=== PATIENT | female | born 1985 | race African-American/Black ===

== ENCOUNTER 2016-12-22 08:52 | Emergency (ER) | payer MEDICAID ==
[~2016-12-22] VITALS: Ht 172.7 cm; Wt 54.4 kg
[2016-12-22 08:59] VITALS: BP 179/119
[2016-12-22 09:35] LABS: Urine Bilirubin Negative (Negative); Urine Blood 1+ /uL (Negative); Urine Color Yellow (Yellow); Urine Glucose Normal (Normal); Urine Ketone Negative (Negative); Urine Nitrite Negative (Negative); Urine RBC 10 /hpf (0 - 4); Urine Squamous Epithelial Cell FEW /hpf (<5); Urine Urobilinogen Normal (Negative)
[2016-12-22 09:47] LABS: Basophils # (auto) 0 uL; Basophils % (auto) 0.1 % (0.0-2.0); DEFINITIVE VIEW TRANSMISSION; Eosinophils # (auto) 0.1 uL; Eosinophils % (auto) 0.5 % (0.0-7.0); Hematocrit 25.9 % (36.0-46.0); Hemoglobin 7.8 g/dL (12.2-16.2); Lymphocytes # (auto) 0.8 uL; Lymphocytes % (auto) 7.8 % (10.0-50.0); Mean Corpuscular Hemoglobin 19.4 pg (28.0-32.0); Mean Corpuscular Hgb Conc. 30.1 g/dL (32.0-36.0); Mean Corpuscular Volume 64.3 fL (80.0-100.0); Mean Platelet Volume 9.2 fL (7.4-10.4); Monocytes # (auto) 0.6 uL; Monocytes % (auto) 6.2 % (0.0-12.0); Neutrophils # (auto) 8.8 uL; Neutrophils % (auto) 85.4 % (37.0-80.0); SUSPECT VIEW TRANSMISSION; White Blood Cell 10.3 10^3/uL (4.4-10.8)
[2016-12-22 09:59] LABS: Platelet Count (auto) 229 10^3/uL (140-450); Red Cell Distribution Width 22.2 % (11.6-16.0)
[2016-12-22 10:39] LABS: Anisocytosis Moderate; Hypochromia Marked; Platelet Estimate Adequate
[2016-12-22 10:40] LABS: Microcytosis Marked; Ovalocytes FEW
== END 2016-12-22 15:32 | disposition left against medical advice (07) ==
LOC: EDBD 08:52 → ER 09:00
DX: R10.9 Unspecified abdominal pain (principal); Z53.21 Procedure and treatment not carried out due to patient leaving prior to being seen by health care provider
CPT/HCPCS: 36415; 81001; 84702; 85025

== ENCOUNTER 2016-12-24 15:37 | Inpatient (IN) | payer MEDICAID ==
[~2016-12-24] VITALS: Ht 162.6 cm; Wt 51.3 kg
[2016-12-24 16:33] LABS: Albumin 3.3 g/dL (3.4-5.0); BUN/Creatinine Ratio 12.6; Bilirubin, Total 0.4 mg/dL (0.2-1.0); Calcium 9.2 mg/dL (8.5-10.1); Potassium 3.1 mmol/L (3.5-5.1); Total Protein 9.2 g/dL (6.4-8.2)
[2016-12-24 16:35] LABS: Urine Color Yellow (Yellow); Urine Glucose Normal (Normal); Urine Nitrite Negative (Negative); Urine RBC 77 /hpf (0 - 4); Urine WBC Clumps PRESENT /hpf (None Seen)
[2016-12-24 16:45] LABS: Urine Bilirubin POSITIVE (Negative); Urine Blood 2+ /uL (Negative); Urine Ketone 2+ (Negative)
[2016-12-24 16:59] LABS: Basophils # (auto) 0 uL; DEFINITIVE VIEW TRANSMISSION; Eosinophils # (auto) 0 uL; Hematocrit 28.6 % (36.0-46.0); Hemoglobin 8.9 g/dL (12.2-16.2); Lymphocytes # (auto) 0.5 uL; Lymphocytes % (auto) 3.8 % (10.0-50.0); Mean Corpuscular Hemoglobin 19.5 pg (28.0-32.0); Mean Platelet Volume 9.6 fL (7.4-10.4); Monocytes # (auto) 1.1 uL; Monocytes % (auto) 8.3 % (0.0-12.0); Neutrophils # (auto) 11.5 uL; Neutrophils % (auto) 87.9 % (37.0-80.0); Platelet Count (auto) 225 10^3/uL (140-450); SUSPECT VIEW TRANSMISSION
[2016-12-24 17:08] LABS: Red Cell Distribution Width 22.8 % (11.6-16.0)
[2016-12-24 18:25] LABS: Platelet Estimate Adequate
[2016-12-24 18:26] LABS: Anisocytosis Moderate; Giant Platelets Few; Hypochromia Marked; Microcytosis Marked
[2016-12-24] MEDS ORDERED: SODIUM CHLORIDE 0.9% 1,000 ML IVB ONE (19:51)
[2016-12-24] MEDS ORDERED: SODIUM CHLORIDE 0.9% 2,000 ML IV ONE (20:00)
[2016-12-24] MEDS ORDERED: KETOROLAC TROMETH 30 MG/ML 1ML VIAL IV ONE (20:00)
[2016-12-24] MEDS ORDERED: ONDANSETRON HCL 4 MG/2 ML VIAL IV ONE (20:00)
[2016-12-24 20:14] LABS: INR 1.03 (0.9-1.15); Partial Thromboplastin Time 33.3 sec (22.64-33.71); Prothrombin Time 11.2 sec (9.37-12.3)
[2016-12-24] MEDS ORDERED: cefTRIAXone 1GM/50ML D5W 50 ML IV ONE (21:30)
[2016-12-24] MEDS ORDERED: TEMAZEPAM 15 MG CAP PO PRN (21:30)
[2016-12-24] MEDS ORDERED: ALBUTEROL SULF 2.5 MG/0.5ML(0.5%) NEB SOLN NEB PRN (21:30)
[2016-12-24] MEDS ORDERED: POTASSIUM CHL 20 Meq TABLET PO ONE (21:30)
[2016-12-24 22:00] VITALS: BP 165/108
[2016-12-24] MEDS: FAMOTIDINE 20 MG TAB PO SCH (22:41)
[2016-12-24] MEDS: HYDROcodone-ACET 5/325MG TAB PO PRN (22:41)
[2016-12-24] MEDS: SODIUM CHLORIDE 0.9% 1,000 ML IV SCH (22:42)
[2016-12-25] VITALS (9 sets, daily range): BP systolic 146–169; BP diastolic 85–110
[2016-12-25 06:23] LABS: Basophils # (auto) 0 uL; DEFINITIVE VIEW TRANSMISSION; Eosinophils # (auto) 0.1 uL; Eosinophils % (auto) 0.7 % (0.0-7.0); Hematocrit 24.9 % (36.0-46.0); Hemoglobin 7.7 g/dL (12.2-16.2); Lymphocytes # (auto) 0.6 uL; Lymphocytes % (auto) 4.9 % (10.0-50.0); Mean Corpuscular Hemoglobin 19.5 pg (28.0-32.0); Mean Corpuscular Hgb Conc. 30.7 g/dL (32.0-36.0); Mean Corpuscular Volume 63.6 fL (80.0-100.0); Mean Platelet Volume 9.3 fL (7.4-10.4); Monocytes # (auto) 1.2 uL; Monocytes % (auto) 10.6 % (0.0-12.0); Neutrophils # (auto) 9.7 uL; Neutrophils % (auto) 83.8 % (37.0-80.0); Platelet Count (auto) 200 10^3/uL (140-450); SUSPECT VIEW TRANSMISSION; White Blood Cell 11.6 10^3/uL (4.4-10.8)
[2016-12-25 06:31] LABS: Red Cell Distribution Width 21.9 % (11.6-16.0)
[2016-12-25 07:00] LABS: Albumin 2.6 g/dL (3.4-5.0); BUN/Creatinine Ratio 12.5; Bilirubin, Total 0.2 mg/dL (0.2-1.0); Potassium 3.8 mmol/L (3.5-5.1); Total Protein 7.2 g/dL (6.4-8.2)
[2016-12-25] MEDS: ACETAMINOPHEN 325 MG TAB PO PRN ×2 (07:03→14:45)
[2016-12-25 07:52] LABS: Anisocytosis Moderate; Burr Cells FEW; Giant Platelets Few; Hypochromia Moderate; Microcytosis Moderate; Ovalocytes FEW; Platelet Estimate Adequate
[2016-12-25] MEDS: HYDROcodone-ACET 5/325MG TAB PO PRN ×3 (08:04→19:38)
[2016-12-25] MEDS: SODIUM CHLORIDE 0.9% 1,000 ML IV SCH ×2 (09:52→15:12)
[2016-12-25] MEDS: ENOXAPARIN SOD 30 MG/0.3 ML SYRINGE SC SCH (10:00)
[2016-12-25] MEDS: FAMOTIDINE 20 MG TAB PO SCH ×2 (10:00→22:31)
[2016-12-25] MEDS: cefTRIAXone 1GM/50ML D5W 50 ML IV SCH (10:51)
[2016-12-25] MEDS: ONDANSETRON HCL 4 MG/2 ML VIAL IV PRN (10:52)
[2016-12-25] MEDS ORDERED: SODIUM CHL 0.9% 500 ML IV ONE (12:44)
[2016-12-25 13:37] LABS: Basophils # (auto) 0 uL; Basophils % (auto) 0.2 % (0.0-2.0); DEFINITIVE VIEW TRANSMISSION; Eosinophils # (auto) 0 uL; Eosinophils % (auto) 0.1 % (0.0-7.0); Hematocrit 26.2 % (36.0-46.0); Hemoglobin 7.9 g/dL (12.2-16.2); Lymphocytes # (auto) 0.5 uL; Lymphocytes % (auto) 4.4 % (10.0-50.0); Mean Corpuscular Hemoglobin 19.2 pg (28.0-32.0); Mean Corpuscular Hgb Conc. 30.3 g/dL (32.0-36.0); Mean Corpuscular Volume 63.5 fL (80.0-100.0); Mean Platelet Volume 9.1 fL (7.4-10.4); Monocytes # (auto) 1.1 uL; Monocytes % (auto) 10.1 % (0.0-12.0); Neutrophils # (auto) 9.5 uL; Neutrophils % (auto) 85.2 % (37.0-80.0); Platelet Count (auto) 209 10^3/uL (140-450); SUSPECT VIEW TRANSMISSION; White Blood Cell 11.1 10^3/uL (4.4-10.8)
[2016-12-25 13:40] LABS: Red Cell Distribution Width 22.4 % (11.6-16.0)
[2016-12-25] MEDS ORDERED: SODIUM CHLORIDE 0.9% 1,000 ML IV ONE (13:45)
[2016-12-25 13:47] LABS: Anisocytosis Moderate; Hypochromia Moderate; Microcytosis Moderate; Ovalocytes FEW; Platelet Estimate Adequate
[2016-12-25 13:53] LABS: INR 0.99 (0.9-1.15); Partial Thromboplastin Time 34.1 sec (22.64-33.71); Prothrombin Time 10.8 sec (9.37-12.3)
[2016-12-25 14:06] LABS: Albumin 2.5 g/dL (3.4-5.0); Anion Gap 11 (5-15); Aspartate Aminotransferase 14 U/L (15-37); BUN/Creatinine Ratio 9.1; Blood Urea Nitrogen 8 mg/dL (7-18); Calcium 8.2 mg/dL (8.5-10.1); Carbon Dioxide 23 mmol/L (21-32); Chloride 101 mmol/L (98-107); GFR African American 95 mL/min; GFR Non-African American 79 mL/min; Glucose 95 mg/dL (74-106); Potassium 3.6 mmol/L (3.5-5.1); Sodium 135 mmol/L (136-145)
[2016-12-25 14:10] LABS: Alkaline Phosphatase 92 U/L (45-117); Bilirubin, Total 0.2 mg/dL (0.2-1.0); Total Protein 7.5 g/dL (6.4-8.2)
[2016-12-25 19:37] LABS: Allen Test Yes; Base Excess -0.6 mmol/L (-2.0-2.0); Blood 02Sat 95.3 % (96-100); Blood COHb 0.8 % (0.5-1.5); Blood MetHb 0.1 % (0.0-1.5); HCO3 23.9 mmol/L (22-26.0); HHb 4.7 % (0.0-5.0); MODE ROOM AIR; O2Hb 94.4 % (94.0-97.0); PCO2 38.5 mmHg (35.0-45.0); PCO2(T) 39.4 mmHg (35.0-45.0); PO2 83.7 mmHg (80.0-100.0); PO2(T) 86.5 mmHg (80.0-100.0); Room 0266D; Sample Type Arterial; pH 7.411 (7.350-7.450)
[2016-12-25] MEDS: MORPHINE SULF INJ 2 MG/ML SYRINGE 1ML IV PRN (23:14)
[2016-12-26] VITALS (14 sets, daily range): BP systolic 111–148; BP diastolic 67–90
[2016-12-26] MEDS: HYDROcodone-ACET 5/325MG TAB PO PRN ×2 (01:07→08:50)
[2016-12-26] MEDS: MORPHINE SULF INJ 2 MG/ML SYRINGE 1ML IV PRN ×3 (03:55→18:58)
[2016-12-26 05:18] LABS: BUN/Creatinine Ratio 5.7; Calcium 7.8 mg/dL (8.5-10.1); Potassium 3.5 mmol/L (3.5-5.1)
[2016-12-26] MEDS: SODIUM CHLORIDE 0.9% 1,000 ML IV SCH ×2 (05:25→16:20)
[2016-12-26 06:04] LABS: Basophils # (auto) 0 uL; Basophils % (auto) 0.1 % (0.0-2.0); DEFINITIVE VIEW TRANSMISSION; Eosinophils # (auto) 0.2 uL; Eosinophils % (auto) 1.9 % (0.0-7.0); Hematocrit 25.5 % (36.0-46.0); Lymphocytes # (auto) 0.8 uL; Lymphocytes % (auto) 9.3 % (10.0-50.0); Mean Corpuscular Hgb Conc. 25.5 g/dL (32.0-36.0); Mean Corpuscular Volume 74.6 fL (80.0-100.0); Mean Platelet Volume 9.9 fL (7.4-10.4); Monocytes # (auto) 1.2 uL; Monocytes % (auto) 12.8 % (0.0-12.0); Neutrophils # (auto) 6.9 uL; Neutrophils % (auto) 75.9 % (37.0-80.0); Platelet Count (auto) 175 10^3/uL (140-450); SUSPECT VIEW TRANSMISSION; White Blood Cell 9.1 10^3/uL (4.4-10.8)
[2016-12-26 06:15] LABS: Red Cell Distribution Width 25.7 % (11.6-16.0)
[2016-12-26 06:17] LABS: Hemoglobin 6.5 g/dL (12.2-16.2)
[2016-12-26 06:36] LABS: Platelet Estimate Adequate
[2016-12-26 06:37] LABS: Anisocytosis Moderate; Hypochromia Marked; Microcytosis Moderate
[2016-12-26 06:38] LABS: Ovalocytes FEW
[2016-12-26] MEDS: cefTRIAXone 1GM/50ML D5W 50 ML IV SCH (08:49)
[2016-12-26] MEDS: ACETAMINOPHEN 325 MG TAB PO PRN ×2 (08:51→18:37)
[2016-12-26] MEDS: LEVOFLOXACIN 500MG 100 ML IV SCH (10:31)
[2016-12-26] MEDS: FAMOTIDINE 20 MG TAB PO SCH ×2 (10:31→21:31)
[2016-12-26] MEDS: ENOXAPARIN SOD 30 MG/0.3 ML SYRINGE SC SCH (10:31)
[2016-12-26] MEDS ORDERED: KETOROLAC TROMETH 30 MG/ML 1ML VIAL IV ONE (20:00)
[2016-12-27] VITALS (9 sets, daily range): BP systolic 122–147; BP diastolic 75–99
[2016-12-27 04:57] LABS: Basophils # (auto) 0 uL; Basophils % (auto) 0.2 % (0.0-2.0); DEFINITIVE VIEW TRANSMISSION; Eosinophils # (auto) 0.2 uL; Eosinophils % (auto) 2.4 % (0.0-7.0); Hematocrit 28.6 % (36.0-46.0); Hemoglobin 8.9 g/dL (12.2-16.2); Lymphocytes % (auto) 13.9 % (10.0-50.0); Mean Corpuscular Hemoglobin 22.3 pg (28.0-32.0); Mean Corpuscular Hgb Conc. 31.2 g/dL (32.0-36.0); Mean Corpuscular Volume 71.4 fL (80.0-100.0); Mean Platelet Volume 10.4 fL (7.4-10.4); Monocytes # (auto) 0.8 uL; Monocytes % (auto) 10.1 % (0.0-12.0); Neutrophils # (auto) 5.5 uL; Neutrophils % (auto) 73.4 % (37.0-80.0); Platelet Count (auto) 181 10^3/uL (140-450); SUSPECT VIEW TRANSMISSION; White Blood Cell 7.6 10^3/uL (4.4-10.8)
[2016-12-27 04:58] LABS: Red Cell Distribution Width 27.9 % (11.6-16.0)
[2016-12-27 05:17] LABS: BUN/Creatinine Ratio 8.1; Calcium 7.8 mg/dL (8.5-10.1); Potassium 3.2 mmol/L (3.5-5.1)
[2016-12-27 05:25] LABS: Anisocytosis Moderate; Platelet Estimate Adequate
[2016-12-27 05:26] LABS: Burr Cells FEW; Hypochromia Moderate; Microcytosis Moderate; Ovalocytes FEW; Polychromasia Slight
[2016-12-27] MEDS: ONDANSETRON HCL 4 MG/2 ML VIAL IV PRN (06:59)
[2016-12-27] MEDS: HYDROcodone-ACET 5/325MG TAB PO PRN (07:04)
[2016-12-27] MEDS: cefTRIAXone 1GM/50ML D5W 50 ML IV SCH (09:27)
[2016-12-27] MEDS: MORPHINE SULF INJ 2 MG/ML SYRINGE 1ML IV PRN (09:34)
[2016-12-27] MEDS: FAMOTIDINE 20 MG TAB PO SCH (10:20)
[2016-12-27] MEDS: ENOXAPARIN SOD 30 MG/0.3 ML SYRINGE SC SCH (10:20)
[2016-12-27] MEDS: LEVOFLOXACIN 500MG 100 ML IV SCH (10:21)
[2016-12-27] MEDS ORDERED: POTASSIUM CHL 20 Meq TABLET PO ONE (11:15)
== END 2016-12-27 15:32 | disposition home or self-care (01) | DRG 720 ==
LOC: ER 15:40 → OVERFLOW 15:41 → CENTRAL 21:58 → DOU IN ICU 12-25 14:45
PROVIDERS: ADMIT Internal Medicine; ATTEND Family Medicine
PROC: 30233N1 Transfusion of Nonautologous Red Blood Cells into Peripheral Vein, Percutaneous Approach (ICD-10-PCS; principal; 2016-12-24)
DX: A41.9 Sepsis, unspecified organism (principal); E43 Unspecified severe protein-calorie malnutrition; N12 Tubulo-interstitial nephritis, not specified as acute or chronic; E86.0 Dehydration; E87.6 Hypokalemia; D50.9 Iron deficiency anemia, unspecified; J45.909 Unspecified asthma, uncomplicated; N20.9 Urinary calculus, unspecified; Z71.89 Other specified counseling; Z68.1 Body mass index [BMI] 19.9 or less, adult
CPT/HCPCS: 36415; 36600; 71010; 76775; 80048; 80053; 81001; 82728; 82805; 83605; 83735; 84484; 84702; 85025; 85379; 85610; 85730; 86850; 86900; 86901; 86920; 87040; 87086; 96365; 96375; J0696; J1885; J1956; J2405

== ENCOUNTER 2018-11-02 06:28 | Emergency (ER) | payer OTHER ==
[~2018-11-02] VITALS: Ht 162.6 cm; Wt 49.9 kg
[2018-11-02] MEDS ORDERED: cloNIDine HCL 0.1 MG TAB PO ONE (06:45)
[2018-11-02 08:25] VITALS: BP 146/106
== END 2018-11-02 08:23 | disposition home or self-care (01) ==
LOC: ER 06:28
DX: R51 Headache (principal); I10 Essential (primary) hypertension; J45.909 Unspecified asthma, uncomplicated

== ENCOUNTER 2018-11-13 10:44 | Emergency (ER) | payer OTHER ==
[~2018-11-13] VITALS: Ht 162.6 cm; Wt 49.9 kg
[2018-11-13 10:50] VITALS: BP 160/97
[2018-11-13 11:50] LABS: Urine Bacteria MOD /hpf (None Seen); Urine Blood 1+ /uL (Negative); Urine Mucus FEW (None Seen); Urine Specific Gravity 1.016 (1.001-1.035); Urine WBC 581 /hpf (0 - 5); Urine WBC Clumps PRESENT /hpf (None Seen)
[2018-11-13] MEDS ORDERED: KETOROLAC TROMETH 60MG/2ML VIAL IM ONE (12:15)
== END 2018-11-13 12:23 | disposition home or self-care (01) ==
LOC: ER 10:44 → EDBD 10:44 → ER 12:23
DX: G44.209 Tension-type headache, unspecified, not intractable (principal); N39.0 Urinary tract infection, site not specified; J45.909 Unspecified asthma, uncomplicated; I10 Essential (primary) hypertension
CPT/HCPCS: 70450; 81001; 81025; 96372; 99284; J1885

== ENCOUNTER 2019-01-12 06:08 | Emergency (ER) | payer OTHER ==
[~2019-01-12] VITALS: Ht 157.5 cm; Wt 54.4 kg
[2019-01-12 07:19] VITALS: BP 154/106
[2019-01-12] MEDS ORDERED: KETOROLAC TROMETH 60MG/2ML VIAL IM ONE (08:30)
== END 2019-01-12 09:57 | disposition home or self-care (01) ==
LOC: EDBD 06:08 → ER 06:23
DX: R51 Headache (principal); R93.0 Abnormal findings on diagnostic imaging of skull and head, not elsewhere classified; J45.909 Unspecified asthma, uncomplicated; I10 Essential (primary) hypertension
CPT/HCPCS: 70450; 81025; 96372; 99284; J1885

== ENCOUNTER 2019-01-13 08:47 | Emergency (ER) | payer OTHER ==
[~2019-01-13] VITALS: Ht 162.6 cm; Wt 49.9 kg
[2019-01-13 09:49] LABS: Albumin 3.6 g/dL (3.4-5.0); BUN/Creatinine Ratio 19.4; Calcium 8.5 mg/dL (8.5-10.1); Potassium 3.7 mmol/L (3.5-5.1)
[2019-01-13 09:51] LABS: Bilirubin, Total 0.1 mg/dL (0.2-1.0); Total Protein 7.6 g/dL (6.4-8.2)
[2019-01-13 10:02] LABS: Basophils # (auto) 0.1 uL; Basophils % (auto) 1.3 % (0.0-2.0); Eosinophils # (auto) 0.4 uL; Eosinophils % (auto) 4.9 % (0.0-7.0); Hematocrit 27.6 % (36.0-46.0); Hemoglobin 8.1 g/dL (12.2-16.2); Lymphocytes # (auto) 1.3 uL; Lymphocytes % (auto) 14.6 % (10.0-50.0); Mean Corpuscular Hemoglobin 19.2 pg (28.0-32.0); Mean Corpuscular Hgb Conc. 29.4 g/dL (32.0-36.0); Mean Corpuscular Volume 65.1 fL (80.0-100.0); Monocytes # (auto) 0.4 uL; Neutrophils # (auto) 6.5 uL; Neutrophils % (auto) 74.2 % (37.0-80.0); Nucleated Red Blood Cells % 0.2 %; Platelet Count (auto) 184 10^3/uL (140-450); Red Blood Cells 4.23 10^6/uL (4.0-5.20); White Blood Cell 8.8 10^3/uL (4.4-10.8)
[2019-01-13 10:03] LABS: Red Cell Distribution Width 23.1 % (11.8-14.3)
[2019-01-13 10:38] LABS: Urine Bacteria FEW /hpf (None Seen); Urine Blood 1+ /uL (Negative); Urine Mucus FEW (None Seen); Urine Specific Gravity 1.015 (1.001-1.035); Urine WBC 245 /hpf (0 - 5); Urine WBC Clumps PRESENT /hpf (None Seen)
[2019-01-13] MEDS ORDERED: cefTRIAXone 1GM/50ML D5W 50 ML IV ONE (11:15)
[2019-01-13] MEDS ORDERED: KETOROLAC TROMETH 30 MG/ML 1ML VIAL IV ONE (11:15)
[2019-01-13] MEDS ORDERED: ONDANSETRON HCL 4 MG/2 ML VIAL IV ONE (11:15)
[2019-01-13 11:34] VITALS: BP 152/56
== END 2019-01-13 12:07 | disposition home or self-care (01) ==
LOC: EDBD 08:47 → ER 08:47
DX: R10.13 Epigastric pain (principal)
CPT/HCPCS: 36415; 80053; 81001; 85025; 96365; 96375; 99283; J0696; J1885; J2405; J7030

== ENCOUNTER 2019-07-12 11:16 | Emergency (ER) | payer OTHER ==
[~2019-07-12] VITALS: Ht 162.6 cm; Wt 49.9 kg
[2019-07-12 12:03] VITALS: BP 185/97
== END 2019-07-12 13:42 | disposition left against medical advice (07) ==
LOC: ER 11:16
DX: N39.0 Urinary tract infection, site not specified (principal); J45.909 Unspecified asthma, uncomplicated; I10 Essential (primary) hypertension; F17.210 Nicotine dependence, cigarettes, uncomplicated
CPT/HCPCS: 81002; 81025

== ENCOUNTER 2020-01-01 14:40 | Emergency (ER) | payer OTHER ==
[~2020-01-01] VITALS: Ht 162.6 cm; Wt 49.9 kg
[2020-01-01 14:57] VITALS: BP 139/100
[2020-01-01 16:04] LABS: Basophils # (auto) 0 10 ^3/uL (0-0.2); Eosinophils # (auto) 0 10 ^3/uL (0-0.8); Lymphocytes # (auto) 0.4 10 ^3/uL (0.4-5.4)
[2020-01-01 16:07] LABS: Eosinophils % (auto) 0.2 % (0.0-7.0); Hematocrit 32.2 % (36.0-46.0); Hemoglobin 10.6 g/dL (12.2-16.2); Mean Corpuscular Hemoglobin 25.2 pg (28.0-32.0); Mean Corpuscular Hgb Conc. 32.8 g/dL (32.0-36.0); Mean Corpuscular Volume 76.9 fL (80.0-100.0); Monocytes # (auto) 0.9 10 ^3/uL (0-1.3); Monocytes % (auto) 8.5 % (0.0-12.0); Neutrophils # (auto) 9.6 10 ^3/uL (1.6-8.6); Neutrophils % (auto) 87.3 % (37.0-80.0); Platelet Count (auto) 200 10^3/uL (140-450); Red Blood Cells 4.19 10^6/uL (4.0-5.20)
[2020-01-01 16:17] LABS: Albumin 3.1 g/dL (3.4-5.0); Calcium 8.9 mg/dL (8.5-10.1); Red Cell Distribution Width 24.3 % (11.8-14.3)
[2020-01-01 16:20] LABS: BUN/Creatinine Ratio 17.8; Bilirubin, Total 0.3 mg/dL (0.2-1.0); Total Protein 8.9 g/dL (6.4-8.2)
[2020-01-01 16:25] LABS: Urine Bacteria NONE SEEN /hpf (None Seen); Urine Blood Negative /uL (Negative); Urine Hyaline Cast MOD /lpf (0 - 2); Urine Mucus FEW (None Seen); Urine Specific Gravity 1.023 (1.001-1.035); Urine WBC 187 /hpf (0 - 5); Urine WBC Clumps PRESENT /hpf (None Seen)
== END 2020-01-01 20:10 | disposition left against medical advice (07) ==
LOC: ER 14:40
DX: R10.9 Unspecified abdominal pain (principal); R11.2 Nausea with vomiting, unspecified; Z53.21 Procedure and treatment not carried out due to patient leaving prior to being seen by health care provider
CPT/HCPCS: 36415; 80053; 81001; 81025; 85025

== ENCOUNTER 2020-03-16 19:48 | Inpatient (IN) | payer OTHER ==
[~2020-03-16] VITALS: Ht 162.6 cm; Wt 48.2 kg
[2020-03-16] MEDS ORDERED: cloNIDine HCL 0.1 MG TAB PO ONE (20:45)
[2020-03-16] MEDS ORDERED: MORPHINE SULFATE 4 MG/ML SYR/VIAL IV ONE (21:00)
[2020-03-16] MEDS ORDERED: ONDANSETRON HCL 4 MG/2 ML VIAL IV ONE (21:00)
[2020-03-16] MEDS ORDERED: fentaNYL CITRATE 100 MCG/2 ML VL IV ONE (21:15)
[2020-03-16 21:57] LABS: Basophils # (auto) 0 10 ^3/uL (0-0.2); Eosinophils # (auto) 0 10 ^3/uL (0-0.8); Eosinophils % (auto) 0.2 % (0.0-7.0); Monocytes # (auto) 0.4 10 ^3/uL (0-1.3); White Blood Cell 7.4 10^3/uL (4.4-10.8)
[2020-03-16 21:59] LABS: Basophils % (auto) 0.4 % (0.0-2.0); Hematocrit 35.6 % (36.0-46.0); Hemoglobin 10.9 g/dL (12.2-16.2); Lymphocytes # (auto) 0.9 10 ^3/uL (0.4-5.4); Lymphocytes % (auto) 12.4 % (10.0-50.0); Mean Corpuscular Hemoglobin 22.4 pg (28.0-32.0); Mean Corpuscular Hgb Conc. 30.5 g/dL (32.0-36.0); Mean Corpuscular Volume 73.3 fL (80.0-100.0); Monocytes % (auto) 5.4 % (0.0-12.0); Neutrophils # (auto) 6.1 10 ^3/uL (1.6-8.6); Neutrophils % (auto) 81.6 % (37.0-80.0); Platelet Count (auto) 212 10^3/uL (140-450); Red Blood Cells 4.86 10^6/uL (4.0-5.20); Red Cell Distribution Width 19.9 % (11.8-14.3)
[2020-03-16 22:15] LABS: Alanine Aminotransferase 19 U/L (13-56); Amylase 89 U/L (25-115); Anion Gap 7 (5-15); Aspartate Aminotransferase 15 U/L (15-37); BUN/Creatinine Ratio 11.4; Blood Urea Nitrogen 9 mg/dL (7-18); Calcium 9.3 mg/dL (8.5-10.1); Carbon Dioxide 26 mmol/L (21-32); Chloride 101 mmol/L (98-107); GFR African American 106 mL/min; GFR Non-African American 88 mL/min; Glucose 114 mg/dL (74-106); Lipase 71 U/L (73-393); Potassium 3.6 mmol/L (3.5-5.1); Sodium 134 mmol/L (136-145)
[2020-03-16 22:20] LABS: Alkaline Phosphatase 71 U/L (45-117); Bilirubin, Total 0.3 mg/dL (0.2-1.0); Total Protein 9.1 g/dL (6.4-8.2)
[2020-03-16 22:21] LABS: INR 0.99 (0.9-1.15); Partial Thromboplastin Time 24.5 sec (23.0-31.2)
[2020-03-16 23:19] LABS: Urine Bacteria NONE SEEN /hpf (None Seen); Urine Blood Negative /uL (Negative); Urine Mucus FEW (None Seen); Urine Specific Gravity 1.018 (1.001-1.035); Urine WBC 470 /hpf (0 - 5); Urine WBC Clumps PRESENT /hpf (None Seen)
[2020-03-16 23:26] LABS: Alcohol, Urine < 3.0 mg/dL (0-10); Amphetamine Screen, Urine POSITIVE (NEGATIVE); Barbiturate Scree,Urine NEGATIVE (NEGATIVE); Benzodiazephine Screen, Urine NEGATIVE (NEGATIVE); Cannabinoid Screen, Urine POSITIVE (NEGATIVE); Cocaine Screen, Urine POSITIVE (NEGATIVE); Opiate Scree,Urine NEGATIVE (NEGATIVE); Phencyclidine Screen, Urine NEGATIVE (NEGATIVE)
[2020-03-17] MEDS ORDERED: levoFLOXacin 750MG 150 ML IV ONE (01:15)
[2020-03-17] MEDS ORDERED: cloNIDine HCL 0.1 MG TAB PO PRN (02:30)
[2020-03-17] MEDS ORDERED: ACETAMINOPHEN 325 MG TAB PO PRN (02:30)
[2020-03-17] MEDS ORDERED: TEMAZEPAM 15 MG CAP PO PRN (02:30)
[2020-03-17] MEDS: MORPHINE SULFATE 4 MG/ML SYR/VIAL IV PRN (03:16)
[2020-03-17] MEDS: HYDROcodone-ACET 5/325MG TAB PO PRN ×3 (04:03→20:20)
[2020-03-17] MEDS: ONDANSETRON HCL 4 MG/2 ML VIAL IV PRN ×2 (04:03→07:00)
[2020-03-17] MEDS: FERROUS SULFATE 325 MG TAB PO SCH ×2 (08:00→18:28)
[2020-03-17] MEDS: cefTRIAXone 1GM/50ML D5W 50 ML IV SCH (08:38)
[2020-03-17] MEDS: BENAZEPRIL HCL 10 MG TAB PO SCH (09:45)
[2020-03-17] MEDS: METOPROLOL SUCCINATE XL 50 MG TAB PO SCH (09:46)
[2020-03-17] MEDS: FAMOTIDINE 20 MG TAB PO SCH ×2 (09:46→22:17)
--- NOTE | 2020-03-17 16:50 | NUR ---
MS admit from ER GARETT BAL admitted to tele/MS after SBAR received CHANDU Antony, RN. Patient oriented to Mar portillo RN, unit, room, bed, and unit policies regarding patient care and visiting hours. Patient weighed by bedscale and encouraged to call if they need something, patient on room air. All questions and concerns addressed, patient verbalized understanding.
[2020-03-17 17:20] VITALS: BP 118/77
[2020-03-17] MEDS ORDERED: MET50T PO (17:59)
[2020-03-17] MEDS ORDERED: BENA40TA7 PO (17:59)
--- NOTE | 2020-03-17 19:25 | NUR ---
Opening Shift Note Received report from Mar RODRIGUES. Assumed care of patient, awake and alert. No S/S of distress/SOB or pain. Instructed on POC and to call for assist PRN, will continue to monitor for changes Q1hr and PRN.
[2020-03-17 22:00] VITALS: BP 99/76
[2020-03-18 05:00] VITALS: BP 120/75
[2020-03-18] MEDS: HYDROcodone-ACET 5/325MG TAB PO PRN ×3 (06:57→23:18)
--- NOTE | 2020-03-18 07:30 | NUR ---
Opening Shift Note Assumed care of patient, awake and alert. No S/S of distress/SOB or pain. Instructed on POC and to call for assist PRN, will continue to monitor for changes Q1hr and PRN. Bed locked in lowest position with two side rails up and call light in reach.
[2020-03-18 07:36] LABS: Basophils # (auto) 0 10 ^3/uL (0-0.2); Basophils % (auto) 0.8 % (0.0-2.0); Eosinophils # (auto) 0.3 10 ^3/uL (0-0.8); Eosinophils % (auto) 4.3 % (0.0-7.0); Hematocrit 34.5 % (36.0-46.0); Hemoglobin 10.4 g/dL (12.2-16.2); Lymphocytes % (auto) 30.4 % (10.0-50.0); Mean Corpuscular Hemoglobin 22.2 pg (28.0-32.0); Mean Corpuscular Hgb Conc. 30.2 g/dL (32.0-36.0); Mean Corpuscular Volume 73.3 fL (80.0-100.0); Monocytes # (auto) 0.6 10 ^3/uL (0-1.3); Monocytes % (auto) 8.7 % (0.0-12.0); Neutrophils # (auto) 3.6 10 ^3/uL (1.6-8.6); Neutrophils % (auto) 55.8 % (37.0-80.0); Nucleated Red Blood Cells % 0.1 %; Platelet Count (auto) 234 10^3/uL (140-450); Red Cell Distribution Width 19.8 % (11.8-14.3); White Blood Cell 6.5 10^3/uL (4.4-10.8)
[2020-03-18 07:47] LABS: BUN/Creatinine Ratio 16.7; Calcium 8.8 mg/dL (8.5-10.1); Potassium 3.7 mmol/L (3.5-5.1)
[2020-03-18 08:00] VITALS: BP 116/93
[2020-03-18] MEDS: FERROUS SULFATE 325 MG TAB PO SCH ×2 (08:01→17:49)
[2020-03-18] MEDS: FAMOTIDINE 20 MG TAB PO SCH ×2 (09:21→21:39)
[2020-03-18] MEDS: cefTRIAXone 1GM/50ML D5W 50 ML IV SCH (09:21)
[2020-03-18 09:22] VITALS: BP 116/93
[2020-03-18] MEDS: BENAZEPRIL HCL 10 MG TAB PO SCH (09:43)
[2020-03-18] MEDS: METOPROLOL SUCCINATE XL 50 MG TAB PO SCH (09:43)
[2020-03-18] MEDS: MORPHINE SULFATE 4 MG/ML SYR/VIAL IV PRN ×2 (12:10→20:34)
[2020-03-18 12:39] VITALS: BP 117/86
[2020-03-18 16:57] VITALS: BP 112/82
--- NOTE | 2020-03-18 19:20 | NUR ---
Opening Shift Note Received report from Dalia RODRIGUES. Assumed care of patient, awake and alert. No S/S of distress/SOB or pain. Instructed on POC and to call for assist PRN. Fall precaution measures in place, will continue to monitor for changes Q1hr and PRN.
[2020-03-18 21:24] VITALS: BP 131/93
--- NOTE | 2020-03-19 00:55 | NUR ---
Patient's sister Jacqueline called, states her sister is calling her saying she wanted to go home. Updated Jacqueline on POC and she verbalized understanding and will convince her sister to stay.
[2020-03-19 05:26] VITALS: BP 119/77
[2020-03-19] MEDS: MORPHINE SULFATE 4 MG/ML SYR/VIAL IV PRN ×2 (06:00→13:32)
[2020-03-19 06:21] LABS: Basophils # (auto) 0.1 10 ^3/uL (0-0.2); Basophils % (auto) 0.8 % (0.0-2.0); Eosinophils # (auto) 0.5 10 ^3/uL (0-0.8); Eosinophils % (auto) 7.2 % (0.0-7.0); Hematocrit 31.8 % (36.0-46.0); Hemoglobin 9.6 g/dL (12.2-16.2); Lymphocytes # (auto) 2.1 10 ^3/uL (0.4-5.4); Lymphocytes % (auto) 32.9 % (10.0-50.0); Mean Corpuscular Hemoglobin 22.2 pg (28.0-32.0); Mean Corpuscular Hgb Conc. 30.2 g/dL (32.0-36.0); Mean Corpuscular Volume 73.4 fL (80.0-100.0); Monocytes # (auto) 0.6 10 ^3/uL (0-1.3); Monocytes % (auto) 8.8 % (0.0-12.0); Neutrophils # (auto) 3.3 10 ^3/uL (1.6-8.6); Neutrophils % (auto) 50.3 % (37.0-80.0); Nucleated Red Blood Cells % 0.1 %; Platelet Count (auto) 206 10^3/uL (140-450); Red Blood Cells 4.32 10^6/uL (4.0-5.20); Red Cell Distribution Width 19.9 % (11.8-14.3); White Blood Cell 6.5 10^3/uL (4.4-10.8)
[2020-03-19 06:41] LABS: Potassium 3.6 mmol/L (3.5-5.1)
[2020-03-19 06:46] LABS: BUN/Creatinine Ratio 17.7; Calcium 8.5 mg/dL (8.5-10.1)
--- NOTE | 2020-03-19 07:30 | NUR ---
Opening Shift Note Assumed care of patient, awake and alert. No S/S of distress/SOB. Patient sobbing c/o right upper arm/shoulder pain; rating at 9/10 on adult pain scale. Discussed pain management options with patient. Will medicate per MD orders. Bed is low, locked with 2x side rails up. Call light is within reach. Instructed on POC and to call for assist PRN, will continue to monitor for changes Q1hr and PRN.
[2020-03-19] MEDS: FAMOTIDINE 20 MG TAB PO SCH (08:09)
[2020-03-19] MEDS: HYDROcodone-ACET 5/325MG TAB PO PRN (08:09)
[2020-03-19] MEDS: FERROUS SULFATE 325 MG TAB PO SCH (08:09)
[2020-03-19] MEDS: cefTRIAXone 1GM/50ML D5W 50 ML IV SCH (08:10)
[2020-03-19] MEDS: METOPROLOL SUCCINATE XL 50 MG TAB PO SCH (08:10)
[2020-03-19] MEDS: BENAZEPRIL HCL 10 MG TAB PO SCH (08:11)
[2020-03-19 09:00] VITALS: BP 132/88
[2020-03-19] MEDS ORDERED: LIDOCAINE 2%HCL (LOCAL ANESTH.) INJ 20ML MDV ONE (09:20)
--- NOTE | 2020-03-19 09:42 | NUR ---
Off unit Patient taken to dental laboratory technician for nephrostomy tube placement with Dr. Palma. IV to right FA is patent and intact. No distress noted upon departure. Addendum: 03/19/20 at 1008 by Sondra Skinner RN RN correction: with Dr. Reed
[2020-03-19] MEDS ORDERED: diphenhdrAMINE HCL 50 MG/1 ML VL ONE (11:24)
[2020-03-19] MEDS ORDERED: fentaNYL CITRATE 100 MCG/2 ML VL ONE (11:25)
[2020-03-19] MEDS ORDERED: MIDAZOLAM HCL 1MG/1ML-2 ML VIAL ONE (11:25)
[2020-03-19] MEDS ORDERED: hydrALAZINE HCL 20 MG/ML VL ONE (12:11)
[2020-03-19 13:00] VITALS: BP 159/102
--- NOTE | 2020-03-19 13:06 | NUR ---
Back on unit S/p Right nephrostomy tube placement. Dressing is C/D/I. Patient began sobbing and c/o right shoulder pain. This nurse will contact radiology dept for ordered xray. Will continue to monitor Q1hr and PRN.
[2020-03-19] MEDS ORDERED: ONDA-144 PO (16:14)
[2020-03-19] MEDS ORDERED: ACE325T PO (16:14)
[2020-03-19] MEDS ORDERED: AMOX500T86 PO (16:14)
--- NOTE | 2020-03-19 16:20 | NUR ---
Cleared from Urology Spoke to staff from Urology institute. Per Dr. Palma patient is cleared for discharge.
[2020-03-19 16:58] VITALS: BP 128/66
[2020-03-19 17:00] VITALS: BP 128/66
--- NOTE | 2020-03-19 17:40 | NUR ---
Discharge instructions given as ordered. Encourage to follow up with PMD as instructed. typing secretary attempted to schedule patient a follow up appointment with Dr. Palma (Urology). Appointment could not be scheduled because patient needs a referral from PCP. Unit secretaries Yvette, and Kelly then called PCP office to attempt to schedule follow up appointment but were unsuccessful. Per staff at PCP Dr. Perez's office the MD will call patient sometime this week to follow up. Staff would not give a specific time or date for follow up. They stated that MD sets up his own F/U appointments and he will contact the patient when he can. This nurse emphasized that patient makes sure she obtains referral for follow up with Dr. Palma as nephrostomy tube was placed today and Dr. Palma requested patient to follow up in two weeks. Patient verbalized understanding. All questions and concerns addressed. Patient verbalized understanding. IV removed with catheter intact, pressure dressing applied. Patient taken to vehicle via wheelchair with all personal belongings, accompanied by staff. No distress noted at time of departure.
== END 2020-03-19 17:38 | disposition home or self-care (01) | DRG 463 ==
LOC: EDBD 19:48 → ER 19:50 → OVERFLOW 19:51 → CENTRAL 03-17 16:51
PROVIDERS: ADMIT Nurse Practitioner; ATTEND Internal Medicine Pulmonary Disease
PROC: 0T9030Z Drainage of Right Kidney with Drainage Device, Percutaneous Approach (ICD-10-PCS; principal; 2020-03-19)
PROC: BT1D1ZZ Fluoroscopy of Right Kidney, Ureter and Bladder using Low Osmolar Contrast (ICD-10-PCS; 2020-03-19)
PROC: BT41ZZZ Ultrasonography of Right Kidney (ICD-10-PCS; 2020-03-19)
DX: N13.6 Pyonephrosis (principal); I16.0 Hypertensive urgency; D64.9 Anemia, unspecified; F17.210 Nicotine dependence, cigarettes, uncomplicated; I10 Essential (primary) hypertension; J45.909 Unspecified asthma, uncomplicated; M25.511 Pain in right shoulder; F19.90 Other psychoactive substance use, unspecified, uncomplicated; Z82.49 Family history of ischemic heart disease and other diseases of the circulatory system; Z91.14 Patient's other noncompliance with medication regimen; Z93.6 Other artificial openings of urinary tract status; F41.9 Anxiety disorder, unspecified; Z71.6 Tobacco abuse counseling
CPT/HCPCS: 36415; 50432; 71045; 73060; 74176; 76942; 80048; 80053; 80307; 81001; 81025; 82150; 83690; 83880; 84443; 84484; 84702; 85025; 85610; 85730; 93005; 99152; 99291; C1729; G0378; J0696; J1956; J2250; J2405

== ENCOUNTER 2020-04-18 14:23 | Inpatient (IN) | payer OTHER ==
[~2020-04-18] VITALS: Ht 162.6 cm; Wt 51.6 kg
[~2020-04-18 14:23] MED LIST: ACE325T PO; AMOX500T86 PO; BENA40TA7 PO; MET50T PO; ONDA-144 PO
[2020-04-18] MEDS ORDERED: SODIUM CHLORIDE 0.9% 1,000 ML IVB ONE (14:49)
[2020-04-18] MEDS ORDERED: HYDROmorphone HCL 2 MG/ML VL IV ONE ×2 (15:00→18:30)
[2020-04-18] MEDS ORDERED: ONDANSETRON HCL 4 MG/2 ML VIAL IV ONE (15:00)
[2020-04-18 15:34] LABS: Urine Bacteria NONE SEEN /hpf (None Seen); Urine Blood 2+ /uL (Negative); Urine Mucus FEW (None Seen); Urine WBC 33 /hpf (0 - 5)
[2020-04-18 15:56] LABS: Basophils # (auto) 0.1 10 ^3/uL (0-0.2); Eosinophils # (auto) 0.4 10 ^3/uL (0-0.8); Lymphocytes # (auto) 0.9 10 ^3/uL (0.4-5.4); Monocytes # (auto) 0.9 10 ^3/uL (0-1.3)
[2020-04-18 16:07] LABS: White Blood Cell 13.1 10^3/uL (4.4-10.8)
[2020-04-18 16:08] LABS: Monocytes % (auto) 6.8 % (0.0-12.0); Neutrophils % (auto) 82.8 % (37.0-80.0)
[2020-04-18 16:22] LABS: Basophils % (auto) 0.6 % (0.0-2.0); Eosinophils % (auto) 2.8 % (0.0-7.0); Neutrophils # (auto) 10.9 10 ^3/uL (1.6-8.6); Nucleated Red Blood Cells % 0.1 %
[2020-04-18 16:23] LABS: Hematocrit 31.1 % (36.0-46.0); Hemoglobin 8.8 g/dL (12.2-16.2); Mean Corpuscular Hemoglobin 20.4 pg (28.0-32.0); Mean Corpuscular Hgb Conc. 28.4 g/dL (32.0-36.0); Mean Corpuscular Volume 71.9 fL (80.0-100.0); Red Blood Cells 4.32 10^6/uL (4.0-5.20)
[2020-04-18 16:24] LABS: Platelet Count (auto) 222 10^3/uL (140-450); Red Cell Distribution Width 23.1 % (11.8-14.3)
[2020-04-18] MEDS ORDERED: cefTRIAXone 1GM/50ML D5W 50 ML IV ONE (17:30)
[2020-04-18] MEDS ORDERED: PROCHLORPERAZINE EDISYLATE 5 MG/ML 2ML VIAL IV ONE (17:30)
[2020-04-18] MEDS ORDERED: MORPHINE SULF INJ 2 MG/ML SYRINGE 1ML IV PRN ×2 (18:00→21:45)
[2020-04-18] MEDS ORDERED: NITROGLYCERIN 0.4 MG SL TAB SL PRN ×2 (18:00→21:45)
[2020-04-18] MEDS ORDERED: LABETALOL HCL 5 MG/ML 4ML SYRINGE IV ONE (18:30)
[2020-04-18 21:26] LABS: Alanine Aminotransferase 23 U/L (13-56); Albumin 3.7 g/dL (3.4-5.0); Alkaline Phosphatase 75 U/L (45-117); Anion Gap 9 (5-15); Aspartate Aminotransferase 26 U/L (15-37); Bilirubin, Total < 0.1 mg/dL (0.2-1.0); Blood Urea Nitrogen 16 mg/dL (7-18); Calcium 8.5 mg/dL (8.5-10.1); Carbon Dioxide 20 mmol/L (21-32); Chloride 109 mmol/L (98-107); GFR African American 80 mL/min; GFR Non-African American 66 mL/min; Glucose 114 mg/dL (74-106); Potassium 3.5 mmol/L (3.5-5.1); Sodium 138 mmol/L (136-145); Total Protein 8.2 g/dL (6.4-8.2)
[2020-04-18 21:27] LABS: Lipase 141 U/L (73-393)
[2020-04-18] MEDS ORDERED: hydrALAZINE HCL 25 MG TAB PO PRN (21:45)
[2020-04-18] MEDS ORDERED: DOCUSATE SOD 100 MG CAP PO PRN (21:45)
[2020-04-18] MEDS ORDERED: ACETAMINOPHEN 325 MG TAB PO PRN (21:45)
[2020-04-18] MEDS ORDERED: HYDROcodone-ACET 5/325MG TAB PO PRN (21:45)
[2020-04-18] MEDS ORDERED: ALUM & MAG HYDROX-SIMETH LIQ(MAALOX) 30 ML PO PRN (21:45)
[2020-04-18] MEDS ORDERED: MEROPENEM 1GM IVPB 100 ML IV SCH (22:00)
[2020-04-18 22:07] VITALS: BP 166/98
[2020-04-18] MEDS ORDERED: ALBUTEROL SULF 2.5 MG/0.5ML(0.5%) NEB SOLN NEB PRN (22:15)
[2020-04-18] MEDS: METOPROLOL TARTRATE 25 MG TAB PO SCH (22:44)
[2020-04-18] MEDS: MORPHINE SULF INJ 2 MG/ML SYRINGE 1ML IV PRN (22:49)
[2020-04-18] MEDS: MEROPENEM 500MG IVPB 50 ML IV SCH (22:52)
[2020-04-18] MEDS: SODIUM CHLORIDE 0.9% 1,000 ML IV SCH (23:15)
[2020-04-18 23:35] VITALS: BP 153/81
[2020-04-18 23:46] LABS: Barbiturate Scree,Urine NEGATIVE (NEGATIVE)
[2020-04-19 00:01] LABS: Alcohol, Urine < 3.0 mg/dL (0-10); Amphetamine Screen, Urine POSITIVE (NEGATIVE); Benzodiazephine Screen, Urine NEGATIVE (NEGATIVE); Cannabinoid Screen, Urine POSITIVE (NEGATIVE); Cocaine Screen, Urine POSITIVE (NEGATIVE); Opiate Scree,Urine NEGATIVE (NEGATIVE); Phencyclidine Screen, Urine NEGATIVE (NEGATIVE)
[2020-04-19] MEDS: METOPROLOL TARTRATE 25 MG TAB PO SCH ×2 (00:07→22:11)
[2020-04-19] MEDS: IPRATROPIUM BROM 0.5 MG/2.5ML INH SOL NEB SCH ×7 (01:43→22:32)
[2020-04-19 05:00] VITALS: BP 122/68
[2020-04-19] MEDS: BUDESONIDE (INHALATION) 0.5 MG/2 ML NEB NEB SCH ×2 (06:10→19:03)
[2020-04-19 08:35] LABS: Cholesterol 159 mg/dL (< 200); HDL Cholesterol 79 mg/dL (40-59); LDL Cholesterol 79 mg/dL (< 100); Triglycerides 37 mg/dL (< 150)
[2020-04-19 08:49] VITALS: BP 115/75
[2020-04-19] MEDS: FERROUS SULFATE 325 MG TAB PO SCH ×3 (09:16→16:42)
[2020-04-19] MEDS: MEROPENEM 500MG IVPB 50 ML IV SCH (09:17)
[2020-04-19] MEDS: FAMOTIDINE 20 MG TAB PO SCH ×2 (09:18→22:11)
[2020-04-19] MEDS: LISINOPRIL 20 MG TAB PO SCH (09:18)
[2020-04-19] MEDS: SODIUM CHLORIDE 0.9% 1,000 ML IV SCH (09:19)
[2020-04-19 12:43] VITALS: BP 112/85
[2020-04-19] MEDS ORDERED: LIDOCAINE 2%HCL (LOCAL ANESTH.) INJ 20ML MDV ONE (13:15)
[2020-04-19] MEDS ORDERED: IODIXANOL 320MG/ML 100ML BTL IV ONE (13:15)
[2020-04-19] MEDS ORDERED: MIDAZOLAM HCL 1MG/1ML-2 ML VIAL ONE (13:36)
[2020-04-19] MEDS ORDERED: fentaNYL CITRATE 100 MCG/2 ML VL ONE (13:36)
[2020-04-19] MEDS ORDERED: LABETALOL HCL 5 MG/ML 4ML SYRINGE IV ONE (14:50)
[2020-04-19] MEDS ORDERED: LABETALOL HCL 5 MG/ML ML 20ML VIAL IV ONE (14:52)
[2020-04-19] MEDS: MORPHINE SULF INJ 2 MG/ML SYRINGE 1ML IV PRN ×2 (15:25→20:50)
[2020-04-19] MEDS: LORazepam 0.5 MG TAB PO PRN (15:25)
[2020-04-19] MEDS: MEROPENEM 1GM IVPB 100 ML IV SCH (16:02)
[2020-04-19] MEDS: hydrALAZINE HCL 25 MG TAB PO SCH ×2 (16:15→16:58)
[2020-04-19 16:18] VITALS: BP 132/89
[2020-04-19] MEDS: HYDROmorphone HCL 2 MG/ML VL IV PRN ×2 (16:39→22:43)
[2020-04-19] MEDS: ONDANSETRON HCL 4 MG/2 ML VIAL IV PRN (18:03)
[2020-04-19 22:00] VITALS: BP 140/75
[2020-04-20] MEDS: MEROPENEM 1GM IVPB 100 ML IV SCH ×2 (00:36→09:12)
[2020-04-20] MEDS: IPRATROPIUM BROM 0.5 MG/2.5ML INH SOL NEB SCH ×4 (02:56→14:40)
[2020-04-20] MEDS: MORPHINE SULF INJ 2 MG/ML SYRINGE 1ML IV PRN ×2 (03:48→08:03)
[2020-04-20 05:00] VITALS: BP 111/70
[2020-04-20] MEDS: HYDROmorphone HCL 2 MG/ML VL IV PRN (06:34)
[2020-04-20] MEDS: hydrALAZINE HCL 25 MG TAB PO SCH ×3 (06:34→12:45)
[2020-04-20 06:44] LABS: Hemoglobin 7.6 g/dL (12.2-16.2); Mean Corpuscular Hemoglobin 21.3 pg (28.0-32.0); Monocytes # (auto) 0.8 10 ^3/uL (0-1.3); Neutrophils % (auto) 85.9 % (37.0-80.0)
[2020-04-20 06:45] LABS: Calcium 8.4 mg/dL (8.5-10.1); Potassium 3.4 mmol/L (3.5-5.1)
[2020-04-20 06:48] LABS: BUN/Creatinine Ratio 14.6
[2020-04-20 06:48] LABS: Basophils # (auto) 0 10 ^3/uL (0-0.2); Basophils % (auto) 0.4 % (0.0-2.0); Eosinophils # (auto) 0.2 10 ^3/uL (0-0.8); Eosinophils % (auto) 1.6 % (0.0-7.0); Hematocrit 25.1 % (36.0-46.0); Lymphocytes # (auto) 0.8 10 ^3/uL (0.4-5.4); Lymphocytes % (auto) 6.1 % (10.0-50.0); Mean Corpuscular Hgb Conc. 30.3 g/dL (32.0-36.0); Mean Corpuscular Volume 70.4 fL (80.0-100.0); Neutrophils # (auto) 10.9 10 ^3/uL (1.6-8.6); Platelet Count (auto) 216 10^3/uL (140-450); Red Blood Cells 3.56 10^6/uL (4.0-5.20); White Blood Cell 12.7 10^3/uL (4.4-10.8)
[2020-04-20 07:02] LABS: Red Cell Distribution Width 22.4 % (11.8-14.3)
[2020-04-20] MEDS: BUDESONIDE (INHALATION) 0.5 MG/2 ML NEB NEB SCH (07:47)
[2020-04-20 08:00] VITALS: BP 115/61
[2020-04-20] MEDS: FERROUS SULFATE 325 MG TAB PO SCH ×2 (08:03→12:00)
[2020-04-20 09:00] VITALS: BP 115/61
[2020-04-20] MEDS: FAMOTIDINE 20 MG TAB PO SCH (09:06)
[2020-04-20] MEDS: LORazepam 0.5 MG TAB PO PRN (09:06)
[2020-04-20] MEDS: METOPROLOL TARTRATE 25 MG TAB PO SCH (09:07)
[2020-04-20] MEDS: LISINOPRIL 20 MG TAB PO SCH (09:12)
[2020-04-20] MEDS: ONDANSETRON HCL 4 MG/2 ML VIAL IV PRN (09:13)
[2020-04-20 12:53] VITALS: BP 137/80
[2020-04-20 14:24] VITALS: BP 137/80
[2020-04-20 17:00] VITALS: BP 112/68
== END 2020-04-20 16:20 | disposition home or self-care (01) | DRG 466 ==
LOC: EDBD 14:23 → ER 14:23 → TELE 14:24 → TELE-WESTW 23:20
PROVIDERS: ADMIT Hospitalist; ATTEND Internal Medicine Nephrology
PROC: 0T9330Z Drainage of Right Kidney Pelvis with Drainage Device, Percutaneous Approach (ICD-10-PCS; principal; 2020-04-19)
PROC: BT1D1ZZ Fluoroscopy of Right Kidney, Ureter and Bladder using Low Osmolar Contrast (ICD-10-PCS; 2020-04-19)
DX: T83.022A Displacement of nephrostomy catheter, initial encounter (principal); G92 Toxic encephalopathy; A41.9 Sepsis, unspecified organism; N13.6 Pyonephrosis; I10 Essential (primary) hypertension; F17.210 Nicotine dependence, cigarettes, uncomplicated; R64 Cachexia; K59.00 Constipation, unspecified; F19.10 Other psychoactive substance abuse, uncomplicated; J44.9 Chronic obstructive pulmonary disease, unspecified; F41.9 Anxiety disorder, unspecified; F14.10 Cocaine abuse, uncomplicated; F12.10 Cannabis abuse, uncomplicated; Y73.2 Prosthetic and other implants, materials and accessory gastroenterology and urology devices associated with adverse incidents; D64.9 Anemia, unspecified; Z91.19 Patient's noncompliance with other medical treatment and regimen; Z68.1 Body mass index [BMI] 19.9 or less, adult; Z43.6 Encounter for attention to other artificial openings of urinary tract; Z87.442 Personal history of urinary calculi; Z82.49 Family history of ischemic heart disease and other diseases of the circulatory system; Z83.3 Family history of diabetes mellitus; Z91.81 History of falling
CPT/HCPCS: 36415; 70450; 74176; 76775; 76942; 80048; 80053; 80061; 80307; 81001; 83036; 83690; 84484; 84702; 85025; 87040; 87081; 87086; 94640; 96361; 96365; 96375; 99152; C1729; G0378; J0696; J2185; J2250; J2405; J3490; Q9967

== ENCOUNTER 2020-05-15 18:14 | Emergency (ER) | payer OTHER ==
[~2020-05-15] VITALS: Ht 162.6 cm; Wt 49.9 kg
[2020-05-15 18:44] VITALS: BP 169/116
== END 2020-05-15 23:19 | disposition left against medical advice (07) ==
LOC: ER 18:14
DX: Z48.00 Encounter for change or removal of nonsurgical wound dressing (principal); Z53.21 Procedure and treatment not carried out due to patient leaving prior to being seen by health care provider

== ENCOUNTER 2021-03-01 02:59 | Emergency (ER) | payer OTHER ==
[~2021-03-01] VITALS: Ht 165.1 cm; Wt 54.4 kg
[~2021-03-01 02:59] MED LIST changes: -ACE325T PO; +ACET325T10 PO; -BENA40TA7 PO; +BENA40TA8 PO
[2021-03-01] MEDS ORDERED: cloNIDine HCL 0.1 MG TAB PO ONE (03:15)
[2021-03-01] MEDS ORDERED: SUMAtriptan SUCCINATE 6 MG/0.5 ML VL SC ONE (05:30)
[2021-03-01 06:19] VITALS: BP 153/109
== END 2021-03-01 06:24 | disposition home or self-care (01) ==
LOC: ER 02:59 → EDBD 02:59 → ER 06:24
DX: G43.909 Migraine, unspecified, not intractable, without status migrainosus (principal); I10 Essential (primary) hypertension; J45.909 Unspecified asthma, uncomplicated; F17.210 Nicotine dependence, cigarettes, uncomplicated
CPT/HCPCS: 96372; 99283; J3030

== ENCOUNTER 2025-02-18 14:33 | Inpatient (IN) | payer OTHER ==
[~2025-02-18] VITALS: Ht 157.5 cm; Wt 50.0 kg
[~2025-02-18 14:33] MED LIST changes: +ACET-1882 PO; -ACET325T10 PO; +BENA40TA71 PO; -BENA40TA8 PO; +CEPH250C PO; +CLIN1CAP70 PO
[2025-02-18] MEDS: SODIUM CHLORIDE 0.9% 1,000 ML IV ONE (15:31)
[2025-02-18] MEDS: MORPHINE SULFATE 4 MG/ML SYR/VIAL IV ONE (15:39)
[2025-02-18] MEDS: ONDANSETRON HCL 4 MG/2 ML VIAL IV ONE (15:40)
[2025-02-18 15:54] LABS: Hematocrit 27.7 % (36.0-46.0); Hemoglobin 8.0 g/dL (12.2-16.2); Mean Corpuscular Hemoglobin 17.4 pg (28.0-32.0); Mean Corpuscular Volume 60.5 fL (80.0-100.0); Nucleated Red Blood Cells % 0.1 %
[2025-02-18 16:07] LABS: Alanine Aminotransferase 12 U/L (7-40); Albumin 4.8 g/dL (3.2-4.8); Alkaline Phosphatase 92 U/L (46-116); Anion Gap 9 (5-15); BUN/Creatinine Ratio 12.5 (10.0-20.0); Blood Urea Nitrogen 13 mg/dL (9-23); Calcium 9.1 mg/dL (8.7-10.4); Carbon Dioxide 26 mmol/L (20-31); Glucose 101 mg/dL (74-106); Lipase 32 U/L (12-53)
[2025-02-18 16:09] LABS: Bilirubin, Total 0.3 mg/dL (0.2-1.0); Chloride 102 mmol/L (98-107); Potassium 3.8 mmol/L (3.5-5.1); Sodium 137 mmol/L (136-145); Total Protein 8.6 g/dL (5.7-8.2)
[2025-02-18 16:14] VITALS: PULSE 83; RESP 19; O2SAT 98
[2025-02-18] MEDS: hydrALAZINE HCL 20 MG/ML VL IV ONE (16:18)
[2025-02-18] MEDS: IOHEXOL 300 MG/ML 100ML BOTTLE IJ ONE (17:25)
--- NOTE | 2025-02-18 17:43 | ED.PDOC ---
History of Present Illness HPI Comments 39 y/o F is BIBA for c/c nonradiating, sharp RLQ abdominal pain, with associated nausea and vomiting. Patient endorses on 1x day history of symptoms, that has been progressively worsening following initial, unprovoked onset. Only significant history of HTN and compliancy with her lisinopril medication. States on no significant abdominal surgery or additional pertinent medical history. Patient denies having any urinary symptoms, fever, chills, bloody or bilious vomitus, diarrhea, constipation, or further associated symptoms. Per previous [facility] medical records, patient has additional significant history of anxiety, asthma, HTN, nephrolithiasis, UTI's, and . Chief Complaint: Abdominal Pain Time Seen by MD: 16:45 Primary Care Provider: UNKNOWN Reviewed Notes: Nurses Notes, Rn Correctional Notes, Medications, Allergies Allergies: Coded Allergies: NO KNOWN ALLERGIES (Unverified , 03/16/20) Home Meds Active Scripts Clindamycin Hcl (Clindamycin Hcl) 300 Mg Cap, 1 CAP PO TID for 7 Days, #21 CAP Prov:VINI ALBARRAN MD 03/12/23 Cephalexin (KEFLEX CAPSULE) 250 Mg Cp, 500 MG PO TID for 7 Days, #21 BOTTLE Prov:VINI ALBARRAN MD 03/12/23 Ondansetron (Zofran) 4 Mg Tab, 1 TAB PO Q6HR, #20 TAB Prov:JONNATHAN MORALES MD 03/19/20 Acetaminophen (Acetaminophen) 325 Mg Tab, 650 MG PO Q6HP PRN for 7 Days, #56 TAB Prov:JONNATHAN MORALES MD 03/19/20 Amoxicillin & Pot Clavulanate (Augmentin) 500 Mg Tab, 1 TAB PO BID, #14 TAB Prov:JONNATHAN MORALES MD 03/19/20 Reported Medications Benazepril Hcl (Benazepril Hcl) 10 Mg Tab, 10 MG PO DAILY for 30 Days, MG 02/19/25 Benazepril Hcl (Benazepril Hcl) 40 Mg Tab, 1 TAB PO DAILYPRN 03/17/20 Metoprolol Tartrate (LOPRESSOR TABLET) 50 Mg Tb, PO 03/17/20 Information Source: Patient, Emergency Med Personnel Mode of Arrival: EMS Severity: Moderate Timing: Hours Duration: Since onset Prehospital treatment: 12 Lead EKG, Accucheck, Systems Manager, Pain Meds, Other (IV access ) Past Medical History PAST MEDICAL HISTORY: Anxiety, Asthma, HTN, Kidney Stones, UTI'S 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: Denies all 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 Hx Family History Family History: Family hx of DM, Family hx of HTN Social History Smoker: Cigarettes, Less Than 1 Pack/Day Alcohol: Denies ETOH Use Drugs: Marijuana Lives In: Home All Other Systems: Reviewed and Negative (Comprehensive review of systems are negative unless otherwise stated in HPI) Physical Exam General Appearance: No Apparent Distress, Normal HEENT: Normal ENT Inspection, Pharynx Normal, TMs Normal Neck: Full Range of Motion, Non-Tender, Normal, Normal Inspection Respiratory: Chest Non-Tender, Lungs Clear, No Accessory Muscle Use, No Respiratory Distress, Normal Breath Sounds Cardiovascular: No Edema, No JVD, No Murmur, No Gallop, Normal Peripheral Pulses, Regular Rate/Rhythm Breast Exam: Deferred Gastrointestinal: No Organomegaly, No Pulsatile Mass, Normal Bowel Sounds, RLQ (tenderness ), Soft, Tenderness (RLQ) Genitalia: Deferred Pelvic: Deferred Rectal: Deferred Extremities: No calf tenderness, Normal capillary refill, Normal inspection, Normal range of motion, Non-tender, No pedal edema Musculoskeletal : Apperance: Normal Neurologic: Alert, resolution rep II-XII nml as Tested, No Motor Deficits, Normal Affect, Normal Mood, No Sensory Deficits Cerebellar Function: Normal Reflexes: Normal Skin: Dry, Normal Color, Warm Lymphatic: No Adenopathy Was a procedure done? Was a procedure done?: No Differential Dx Considerations may include: appendicitis, diverticulitis, PID, ovarian cysts/torsion, musculoskeletal pain, UTI, nephrolithiasis, , among others X-Ray, Labs, Meds, VS Vital Signs Date Time Temp Pulse Resp B/P (MAP) Pulse Ox O2 Delivery O2 Flow Rate FiO2 02/18/25 22:22 104 138/97 (111) 100 02/18/25 20:25 98.6 87 16 159/101 (120) 99 98.6 02/18/25 18:27 97.9 91 18 161/92 (115) 100 97.9 02/18/25 16:18 189/121 02/18/25 16:18 83 19 189/121 02/18/25 16:14 83 19 98 Room Air* 0 21 02/18/25 16:14 83 18 189/121 (143) 100 02/18/25 15:39 99 16 176/126 02/18/25 15:16 99 16 100 Room Air 02/18/25 15:16 97.4 97 18 194/127 (149) 96 97.4 02/18/25 15:16 98.7 99 16 176/126 (143) 100 98.7 Lab Test 02/18/25 15:37 02/18/25 15:36 02/18/25 15:34 Range/Units Urine Color Brown H Yellow Urine Clarity Ex.turbid Clear Urine pH 8.0 5.0-9.0 Urine Specific Mckinnon > 1.050 H 1.001-1.035 Urine Protein 2+ H Negative Urine Ketones Negative Negative Urine Blood 2+ H Negative /uL Urine Nitrite Negative Negative Urine Bilirubin Negative Negative Urine Urobilinogen Normal Negative mg/dL Urine Leukocyte Esterase 3+ Negative /uL Urine RBC 8 0 - 4 /hpf Urine Microscopic WBC 19 H 0-5 /HPF Urine Squamous Epithelial Cells None seen <5 /hpf Urine Bacteria None seen None Seen /hpf Urine Glucose Normal Normal mg/dL White Blood Count 6.6 4.4-10.8 10^3/uL Red Blood Count 4.59 4.0-5.20 10^6/uL Hemoglobin 8.0 L 12.2-16.2 g/dL Hematocrit 27.7 L 36.0-46.0 % Mean Corpuscular Volume 60.5 L 80.0-100.0 fL Mean Corpuscular Hemoglobin 17.4 L 28.0-32.0 pg Mean Corpuscular Hemoglobin Concent 28.8 L 32.0-36.0 g/dL Red Cell Distribution Width 23.5 H 11.8-14.3 % Platelet Count 256 140-450 10^3/uL Mean Platelet Volume 8.9 6.9-10.8 fL Neutrophils (%) (Auto) 62.2 37.0-80.0 % Lymphocytes (%) (Auto) 19.3 10.0-50.0 % Monocytes (%) (Auto) 10.0 0.0-12.0 % Eosinophils (%) (Auto) 7.5 H 0.0-7.0 % Basophils (%) (Auto) 1.0 0.0-2.0 % Neutrophils # (Auto) 4.1 1.6-8.6 10 ^3/uL Lymphocytes # (Auto) 1.3 0.4-5.4 10 ^3/uL Monocytes # (Auto) 0.7 0-1.3 10 ^3/uL Eosinophils # (Auto) 0.5 0-0.8 10 ^3/uL Basophils # (Auto) 0.1 0-0.2 10 ^3/uL Nucleated Red Blood Cells 0.1 % Sodium Level 137 136-145 mmol/L Potassium Level 3.8 3.5-5.1 mmol/L Chloride Level 102 98-107 mmol/L Carbon Dioxide Level 26 20-31 mmol/L Anion Gap 9 5-15 Blood Urea Nitrogen 13 9-23 mg/dL Creatinine 1.04 H 0.550-1.02 mg/dL Glomerular Filtration Rate Calc 69 >90 mL/min BUN/Creatinine Ratio 12.5 10.0-20.0 Serum Glucose 101 74-106 mg/dL Hemoglobin A1c 5.4 <5.7 % A1C Calcium Level 9.1 8.7-10.4 mg/dL Total Bilirubin 0.3 0.2-1.0 mg/dL Aspartate Amino Transferase (AST) 21 13-40 U/L Alanine Aminotransferase (ALT) 12 7-40 U/L Alkaline Phosphatase 92 46-116 U/L Troponin I High Sensitivity 3 L </=34 ng/L Total Protein 8.6 H 5.7-8.2 g/dL Albumin 4.8 3.2-4.8 g/dL Triglycerides Level 82 < 150 mg/dL Cholesterol Level 140 < 200 mg/dL LDL Cholesterol 73 < 100 mg/dL HDL Cholesterol 53 40-59 mg/dL Lipase 32 12-53 U/L Urine Opiates Screen Pos NEGATIVE Urine Fentanyl Screen Neg NEGATIVE Urine Barbiturates Screen Neg NEGATIVE Urine Phencyclidine Screen Neg NEGATIVE Urine Amphetamines Screen Pos NEGATIVE Urine Benzodiazepines Screen Neg NEGATIVE Urine Cocaine Screen Neg NEGATIVE Urine Cannabinoids Screen Pos NEGATIVE Time of 1ST Reevaluation: 15:15 Reevaluation 1ST: Unchanged Patient Education/Counseling: Diagnosis, Treatment Family Education/Counseling: No Family Present Additional Information Previous encounters reviewed: March 12, 2023 encounter for hypertensive urgency Labs/tests ordered: CT abdomen/pelvis w/IV contrast, UA, lipase, CMP, CBC Imaging results in concurrent agreement with: CT abdomen/pelvis w/IV contrast Additional historians interviewed: EMS Discuss care to medical personal and: patient SEPSIS Sepsis Screen Date sepsis recognized/suspect: Feb 18, 2025 Time Sepsis recognized/suspect: 1446 Recent Procedure: No On Antibiotic Therapy: No Respiratory Rate >20: No Heart Rate >90: Yes Temp<36 C (96.8 F) or >38.3 C: No SBP <90 or MAP <65 mmHG: No New Acute Mental Status Change: No Is the patient on CPAP, BIPAP,: No Physician Orders Ct Ab Pel With Iv Con Only (02/18/25 15:23) Vital Signs Date Time Temp Pulse Resp B/P (MAP) Pulse Ox O2 Delivery O2 Flow Rate FiO2 02/18/25 22:22 104 138/97 (111) 100 02/18/25 20:25 98.6 87 16 159/101 (120) 99 98.6 02/18/25 18:27 97.9 91 18 161/92 (115) 100 97.9 02/18/25 16:18 189/121 02/18/25 16:18 83 19 189/121 02/18/25 16:14 83 19 98 Room Air* 0 21 02/18/25 16:14 83 18 189/121 (143) 100 02/18/25 15:39 99 16 176/126 02/18/25 15:16 99 16 100 Room Air 02/18/25 15:16 97.4 97 18 194/127 (149) 96 97.4 02/18/25 15:16 98.7 99 16 176/126 (143) 100 98.7 Laboratory Tests Test 02/18/25 15:36 White Blood Count 6.6 10^3/uL (4.4-10.8) Departure 1 Departure Time of Disposition: 05:45 (Patient presented with abdominal pain that was concerning for possible appendicits, gastritis, cholecystitis, colitis, gastroenteritis, sbo, or orther possible surgical emergency. Data: 1. I ordered and reviewed the result of at least 3 labs including a CBC, BMP, and Urinalysis. 2. I independently interpreted the following tests: CT Abdoment and Pelvis is concerning for staghorn calculus and urethritis .Risk:This patient has a high risk of morbidity due to further diagnostic testing or treatment and may suffer from an acute abdominal process disorder. Workup reveals staghorn calculi and patient should be admitted for further workup. and possible expert consultation. ) Impression: Primary Impression: Intractable abdominal pain Additional Impressions: Staghorn calculus Urethritis Disposition: ADMITTED INPATIENT Admit to: Med Surg Condition: Serious Critical Care Note Critical Care Time?: Yes Critical care comment: Intractable abdominal pain Authorized and Performed by: Hernando Núñez MD Total critical care time: Approximately 74 minutes Due to a high probability of clinically significant, life threatening deterioration, the patient required my highest level of preparedness to intervene emergently and I personally spent this critical care time directly and personally managing the patient. This critical care time included obtaining a history; examining the patient; pulse oximetry; ordering and review of studies; arranging urgent treatment with development of a management plan; evaluation of patient's response to treatment; frequent reassessment; and, discussions with other providers. This critical care time was performed to assess and manage the high probability of imminent, life-threatening deterioration that could result in multi-organ failure. It was exclusive of separately billable procedures and treating other patients and teaching time. Please see my other sections and the rest of the note for further information on patient assessment and treatment. Stability Stability form required: No Heart Score Heart Score: Heart Score Response (Comments) Value History N/A 0 EKG N/A 0 Age N/A 0 Risk Factors N/A 0 Troponin N/A 0 Total 0 I personally scribed for HERNANDO NÚÑEZ MD ([email or web address]) on 02/18/25 at 17:43. Electronically submitted by William Simpson ([email or web address]). HERNANDO NÚÑEZ MD Feb 18, 2025 17:43
--- NOTE | 2025-02-18 18:00 | DVH ---
COMPUTERIZED TOMOGRAPHY ABDOMEN AND PELVIS WITH CONTRAST REASON FOR EXAM: rlq pain COMPARISON: CT abdomen/ pelvis 04/19/2020 TECHNIQUE: The exam was performed on a Multidetector scanner. Spiral scans were acquired from the sue phragm to the symphysis pubis after administration of IV contrast. 2-D coronal and sagittal reformatt ed images were provided. Radiation optimization: All CT scans at this facility use at least one of th ankita dose optimization techniques: Automated exposure control mA and/or kV adjustment per patient size (includes targeted exams where dose is matched to clinical indication) or iterative reconstruction. CONTRAST ADMINISTRATION: 80 mL omnipaque 300 intravenously RADIATION DOSE: CTDI: 5.56 mGy DLP: 281.62 mGy-cm FINDINGS: There is minimal dependent atelectasis in bilateral lower lobes of the lungs. There is no pleural ef fusion. There is no pericardial effusion. The spleen is not enlarged. The liver is normal in size and contour. The hepatic veins are patent. The portal vein is patent. The pancreas is within normal limits. The adrenal glands are normal. The k idneys enhance symmetrically. There is an approximately 4.6 x 2.8 x 6.2 cm staghorn calculus in the r ight renal pelvis causing severe right hydronephrosis. There are several additional calculi forming w ithin inferior pole calices within the right kidney. There is no left renal calculus. The upper porti on of the right ureter appears chronically dilated at approximately 1.5 cm. The distal ureter appears thickened . There is hypodense material distending the uterine cavity. No free fluid is identified i n the abdomen or pelvis. The ovaries are within normal limits. There are scattered subcentimeter retr operitoneal lymph nodes. There is no abdominal aortic aneurysm. The colonic stool burden is moderate . There is no pathologic distention of the small bowel. The appendix is not seen. There is no inflamm atory change about the cecum to suggest acute appendicitis. No acute osseous abnormality is identifie d. IMPRESSION: Severe right hydronephrosis secondary to staghorn calculus. There is chronic appearing right ureteron ephrosis of the upper ureter beyond the calculus. The distal right ureter is not dilated but may be c hronically thickened secondary to ureteritis. No significant pathology is identified of the left kidn ey or left collecting system. The appendix is not seen. There is no inflammatory change in the right lower quadrant to suggest acut e appendicitis. Moderate colonic stool burden. Correlate clinically for constipation.
[2025-02-18 19:41] LABS: Urine Protein, UAD 2+ (Negative)
[2025-02-18] MEDS ORDERED: ACETAMINOPHEN 325 MG TAB PO PRN (23:45)
[2025-02-19] VITALS (8 sets, daily range): BP systolic 124–138; BP diastolic 75–95; PULSE 92–113; RESP 14–18; TEMP 97.6–98.6; O2SAT 98–100
[2025-02-19] MEDS: cefTRIAXone 1GM/50ML D5W 50 ML IV ONE (00:26)
--- NOTE | 2025-02-19 00:32 | DVHHPRES ---
History of Present Illness Resident Creating Document: BAKARI YEUNG History of Present Illness This is a 39-year-old female with past medical history of asthma and hypertension. Patient presented to the ED with chief complaint of right flank abdominal tenderness. Patient does reports a two month history of kidney stones, the patient states she went to [place] and they found right-sided nephrolithiasis but lithotripsy was never performed. Patient states that right flank pain started worsening two days ago which is currently localized in the right lower quadrant with a excruciating pain to palpation. The patient also reports associated nausea and vomiting. The patient described the pain as a sharp pain localized in the right lower quadrant with no specific pattern of radiation. The patient rates the pain as 9/10 on the pain scale and states that feels minimally alleviated with lying down. On my examination, patient has right-sided costovertebral angle tenderness and severe tenderness to palpation in the right lower quadrant. There is no fever/chills, chest pain, shortness of breath or any other associated symptoms. Initial labs showed a normal CBC and CMP. Troponins came back negative and lipase was 32. Urinalysis came back suggesting UTI. We will order urine culture, intervention radiologist consulta tion for possible nephrostomy tube placement and urology consult as well. We will admit the patient for further assessment and management. Cardiovascular: HTN Pulmonary: Asthma Past Surgical History: (X5) Family History: None Smoke: No ALCOHOL: none Drugs: None Lives: with Family Domestic Violence: Neg Review of Systems Constitutional: No: Fever, Chills, Sweats, Weakness, Malaise, Other Eyes: No: Pain, Vision change, Conjunctivae inflammation, Eyelid inflammation, Other, Redness ENT: No: Ear pain, Ear discharge, Nose pain, Nose discharge, Nose congestion, Mouth pain, Mouth swelling, Throat pain, Throat swelling, Other Respiratory: No: Cough, Dry, Shortness of breath, SOB with excertion, Wheezing, Hemoptysis, Pleuritic Pain, Sputum, Wheezing, Other Gastrointestinal: Nausea, Abdominal Pain; No: Vomiting, Diarrhea, Constipation, Melena, Hematochezia, Other Genitourinary: No Dysuria, No Frequency, No Incontinence, No Hematuria, No Retention, No Other Musculoskeletal: No: other, neck pain, shoulder pain, arm pain, back pain, hand pain, leg pain, foot pain Skin: No: Rash, Lesions, Jaundice, Bruising, Other Neurological: No: Weakness, Numbness, Incoordination, Change in speech, Confusion, Seizures, Other Allergies: Coded Allergies: NO KNOWN ALLERGIES (Unverified , 03/16/20) Medications Current Medications Medications Dose Ordered Sig/[place] Route Start Time Stop Time Status Last Admin Dose Admin Acetaminophen 650 mg Q6HP PRN PO 02/18/25 23:45 Acetaminophen/ Hydrocodone Bitart 1 tab Q4HP PRN PO 02/18/25 23:45 Ondansetron HCl 4 mg Q4HP PRN IV 02/18/25 23:45 Exam Vital Signs Vital Signs Date Time Temp Pulse Resp B/P (MAP) Pulse Ox O2 Delivery O2 Flow Rate FiO2 02/18/25 22:22 104 138/97 (111) 100 02/18/25 20:25 98.6 16 98.6 02/18/25 16:14 Room Air* 0 21 General Appearance: Alert, Oriented X3, Cooperative, moderate distress HEENT: Atraumatic, PERRLA, EOMI, Mucous membr. moist/pink Respiratory: Clear to auscultation, Normal air movement Cardiovascular: Regular rate, Normal S1, Normal S2, No murmurs Abdominal: Normal bowel sounds, Other (Right-sided costovertebral angle tenderness and severe right lower quadrant tenderness to palpation.) Extremities: No clubbing, No cyanosis, No edema, Normal pulses, No tenderness/swelling Skin: No rashes, No breakdown, No significant lesion Neuro: Normal gait, Normal speech, Strength at 5/5 X4 ext, Normal tone, Sensation intact, Cranial nerves 3-12 NL, Reflexes 2+ Psych/Mental Status: Mental status NL, Mood NL Labs/Xrays Labs Test 02/18/25 15:37 02/18/25 15:36 Range/Units Urine Color Brown H Yellow Urine Clarity Ex.turbid Clear Urine pH 8.0 5.0-9.0 Urine Specific [place] > 1.050 H 1.001-1.035 Urine Protein 2+ H Negative Urine Ketones Negative Negative Urine Blood 2+ H Negative /uL Urine Nitrite Negative Negative Urine Bilirubin Negative Negative Urine Urobilinogen Normal Negative mg/dL Urine Leukocyte Esterase 3+ Negative /uL Urine RBC 8 0 - 4 /hpf Urine Microscopic WBC 19 H 0-5 /HPF Urine Squamous Epithelial Cells None seen <5 /hpf Urine Bacteria None seen None Seen /hpf Urine Glucose Normal Normal mg/dL White Blood Count 6.6 4.4-10.8 10^3/uL Red Blood Count 4.59 4.0-5.20 10^6/uL Hemoglobin 8.0 L 12.2-16.2 g/dL Hematocrit 27.7 L 36.0-46.0 % Mean Corpuscular Volume 60.5 L 80.0-100.0 fL Mean Corpuscular Hemoglobin 17.4 L 28.0-32.0 pg Mean Corpuscular Hemoglobin Concent 28.8 L 32.0-36.0 g/dL Red Cell Distribution Width 23.5 H 11.8-14.3 % Platelet Count 256 140-450 10^3/uL Mean Platelet Volume 8.9 6.9-10.8 fL Neutrophils (%) (Auto) 62.2 37.0-80.0 % Lymphocytes (%) (Auto) 19.3 10.0-50.0 % Monocytes (%) (Auto) 10.0 0.0-12.0 % Eosinophils (%) (Auto) 7.5 H 0.0-7.0 % Basophils (%) (Auto) 1.0 0.0-2.0 % Neutrophils # (Auto) 4.1 1.6-8.6 10 ^3/uL Lymphocytes # (Auto) 1.3 0.4-5.4 10 ^3/uL Monocytes # (Auto) 0.7 0-1.3 10 ^3/uL Eosinophils # (Auto) 0.5 0-0.8 10 ^3/uL Basophils # (Auto) 0.1 0-0.2 10 ^3/uL Nucleated Red Blood Cells 0.1 % Sodium Level 137 136-145 mmol/L Potassium Level 3.8 3.5-5.1 mmol/L Chloride Level 102 98-107 mmol/L Carbon Dioxide Level 26 20-31 mmol/L Anion Gap 9 5-15 Blood Urea Nitrogen 13 9-23 mg/dL Creatinine 1.04 H 0.550-1.02 mg/dL Glomerular Filtration Rate Calc 69 >90 mL/min BUN/Creatinine Ratio 12.5 10.0-20.0 Serum Glucose 101 74-106 mg/dL Calcium Level 9.1 8.7-10.4 mg/dL Total Bilirubin 0.3 0.2-1.0 mg/dL Aspartate Amino Transferase (AST) 21 13-40 U/L Alanine Aminotransferase (ALT) 12 7-40 U/L Alkaline Phosphatase 92 46-116 U/L Troponin I High Sensitivity 3 L </=34 ng/L Total Protein 8.6 H 5.7-8.2 g/dL Albumin 4.8 3.2-4.8 g/dL Lipase 32 12-53 U/L SEPSIS Sepsis Screen Date sepsis recognized/suspect: Feb 18, 2025 Time Sepsis recognized/suspect: 1446 Recent Procedure: No On Antibiotic Therapy: No Respiratory Rate >20: No Heart Rate >90: Yes Temp<36 C (96.8 F) or >38.3 C: No SBP <90 or MAP <65 mmHG: No New Acute Mental Status Change: No Is the patient on CPAP, BIPAP,: No Physician Orders Admit (02/18/25 23:44) Code Status (02/18/25 23:44) Vital Signs .PER UNIT PROTOCOL (02/18/25 23:44) Review Orders With Adm.Md (02/18/25 23:44) Encourage Activity As Tolerate (02/18/25 23:44) Npo (Nothing By Mouth) Diet (02/19/25 Breakfast) Acetaminophen Tablet (Tylenol Tablet) (02/18/25 23:45) Notify Md Of Changes From Base (02/18/25 23:44) Advance Directive (02/18/25 23:44) Urinalysis (02/18/25 23:44) Complete Blood Count (02/19/25 04:00) Lipid Panel (02/18/25 23:44) Urine Bacterial Culture (02/18/25 23:44) Patient Condition (02/18/25 23:44) Allergies (02/18/25 23:44) Hydrocodone-Acet 5/325mg Tab ([place] 5/32 (02/18/25 23:45) Ondansetron Hcl (Zofran) (02/18/25 23:45) Drug Screen (02/18/25 23:44) Hemoglobin A1c (02/18/25 23:44) Ceftriaxone 1gm/50ml D5w (Rocephin) (02/18/25 23:45) * Radiologist Consult (02/18/25 23:52) * Urology Consult (02/18/25 23:54) Vital Signs Date Time Temp Pulse Resp B/P (MAP) Pulse Ox O2 Delivery O2 Flow Rate FiO2 02/18/25 22:22 104 138/97 (111) 100 02/18/25 20:25 98.6 87 16 159/101 (120) 99 98.6 02/18/25 18:27 97.9 91 18 161/92 (115) 100 97.9 02/18/25 16:18 189/121 02/18/25 16:18 83 19 189/121 02/18/25 16:14 83 19 98 Room Air* 0 21 02/18/25 16:14 83 18 189/121 (143) 100 Laboratory Tests Test 02/18/25 15:36 White Blood Count 6.6 10^3/uL (4.4-10.8) Medications Medications Dose Ordered Sig/Stan[place] Route Start Time Stop Time Status Last Admin Dose Admin Hydralazine HCl 20 mg ONCE ONCE IV 02/18/25 16:15 02/18/25 16:16 DC 02/18/25 16:18 20 MG Morphine Sulfate 4 mg ONCE ONCE IV 02/18/25 15:30 02/18/25 15:31 DC 02/18/25 15:39 4 MG Ondansetron HCl 4 mg ONCE ONCE IV 02/18/25 15:30 02/18/25 15:31 DC 02/18/25 15:40 4 MG Sodium Chloride 1,000 ml @ 1,000 mls/hr Q1H ONCE IV 02/18/25 15:30 02/18/25 16:29 DC 02/18/25 15:31 1,000 MLS/HR Assessment/Plan Assessment/Plan Assessment/plan Right flank pain likely due to right-sided staghorn calculi with severe right- sided hydronephrosis Severe right-sided hydronephrosis Right staghorn calculi UTI History of kidney stones -urinalysis suggestive of UTI -CT of the abdomen is showing staghorn calculi in the right side with severe right-sided hydronephrosis -Pain meds for pain modulation -Tamsulosin 0.4mg daily -Avoid fluids until obstruction is relieved -Consulted IR for poss right sided nephrostomy tube placement -IV ceftriaxone, CONSIDER SWITCHING TO TMP-SMX in the setting of urease associate producer organisms -Consulted urology for staghorn calculi and right severe hydronephrosis Primary hypertension -Start amlodipine 10mg daily -Pain control -Monitor BP -Add meds if required Asthma, stable -No acute flares, currently on room air Polysubstance abuse -UDS came back positive for cannabis, amphetamines, opioids -counseled on drug cessation Goals of care discussed with the patient at bedside for >35min, FULL CODE Plan discussed with Dr. Ulrich Plan discussed with: Patient My Orders Orders - BAKARI YEUNG Procedure Category Date Status Time Admit ADMIT 02/18/25 Transmitted 23:44 Code Status CODE 02/18/25 Transmitted 23:44 Vital Signs ADRIANNE 02/18/25 In Process 23:44 Review Orders With [facility] 02/18/25 In Process Adm. 23:44 Encourage Activity As [facility] 02/18/25 In Process Tolerate 23:44 Npo (Nothing By DIET 02/19/25 Transmitted Mouth) Diet Breakfast Acetaminophen Tablet PHA 02/18/25 In Process (Tylenol Tablet) 23:45 Notify Md Of Changes ADRIANNE 02/18/25 In Process From Base 23:44 Advance Directive ADRIANNE 02/18/25 In Process 23:44 Urinalysis LAB 02/18/25 Logged 23:44 Complete Blood Count LAB 02/19/25 Verified 04:00 Lipid Panel LAB 02/18/25 Logged 23:44 Urine Bacterial GIANLUCA 02/18/25 Logged Culture 23:44 Patient Condition ORDERS 02/18/25 Transmitted 23:44 Allergies ADRIANNE 02/18/25 In Process 23:44 Hydrocodone-Acet PHA 02/18/25 In Process 5/325mg Tab ([place] 23:45 Ondansetron Hcl PHA 02/18/25 In Process (Zofran) 23:45 Drug Screen LAB 02/18/25 Logged 23:44 Hemoglobin A1c LAB 02/18/25 Logged 23:44 Ceftriaxone 1gm/50ml PHA 02/18/25 In Process D5w (Rocephin) 23:45 * Radiologist Consult CONS 02/18/25 Transmitted 23:52 * Urology Consult CONS 02/18/25 Transmitted 23:54 Date of Service: Feb 19, 2025 Billing Provider: EAM ULRICH MD Common Visit Codes: 16600-[id number] INP/OBS CARE (HIGH) Secondary Visit Codes: [id number] CARE PLAN 30 MINUTES BAKARI YEUNG RESIDENT Feb 19, 2025 00:32
[2025-02-19] MEDS: TAMSULOSIN HYDROCHLORIDE 0.4 MG CAP PO SCH (01:01)
[2025-02-19 01:08] LABS: Triglycerides 82 mg/dL (< 150)
[2025-02-19 01:10] LABS: HDL Cholesterol 53 mg/dL (40-59)
[2025-02-19 01:11] LABS: Cholesterol 140 mg/dL (< 200)
[2025-02-19] MEDS: MORPHINE SULFATE INJ 2 MG/ml SYRG IV PRN (02:09)
[2025-02-19] MEDS: hydrALAZINE HCL 20 MG/ML VL IV PRN (02:14)
[2025-02-19 03:47] LABS: Cannabinoid Screen, Urine Pos (NEGATIVE); Opiate Scree,Urine Pos (NEGATIVE)
[2025-02-19] MEDS: HYDROcodone-ACET 5/325MG TAB PO PRN (03:48)
[2025-02-19 03:56] LABS: Amphetamine Screen, Urine Pos (NEGATIVE); Barbiturate Scree,Urine Neg (NEGATIVE); Benzodiazephine Screen, Urine Neg (NEGATIVE); Cocaine Screen, Urine Neg (NEGATIVE); Phencyclidine Screen, Urine Neg (NEGATIVE)
[2025-02-19 04:25] LABS: Hematocrit 28.5 % (36.0-46.0); Hemoglobin 8.2 g/dL (12.2-16.2); Mean Corpuscular Hemoglobin 17.7 pg (28.0-32.0); Mean Corpuscular Volume 61.8 fL (80.0-100.0); Nucleated Red Blood Cells % 0.1 %
[2025-02-19 04:47] LABS: Anisocytosis Slight
[2025-02-19] MEDS ORDERED: BENA10TA90 PO (05:15)
[2025-02-19 08:46] LABS: Chloride 103 mmol/L (98-107); Potassium 3.7 mmol/L (3.5-5.1); Sodium 137 mmol/L (136-145)
[2025-02-19 08:47] LABS: Anion Gap 12 (5-15); Carbon Dioxide 22 mmol/L (20-31)
[2025-02-19 08:48] LABS: Calcium 9.7 mg/dL (8.7-10.4)
[2025-02-19 08:52] LABS: BUN/Creatinine Ratio 12.5 (10.0-20.0); Blood Urea Nitrogen 11 mg/dL (9-23); Glucose 88 mg/dL (74-106)
[2025-02-19 08:55] LABS: Total Iron Binding Capacity 420.0 ug/dL (250-425)
[2025-02-19 09:21] LABS: Iron 22.0 ug/dL (50-170)
[2025-02-19] MEDS: cefTRIAXone 1GM/50ML D5W 50 ML IV SCH (10:31)
--- NOTE | 2025-02-19 11:04 | DVHINCON2 ---
Date of service: Feb 19, 2025 Referring Physician hospitalist Reason for Consultation staghorn calculus History of Present Illness History Source: Patient, RN Notes, MD Notes, Old Records Exam Limitations: No limitations HPI 39 yo female with known staghorn and XGP for years. pt denies alcohol or drug use however UD was positive for cannabis, methamphetamines and opiates. she smokes cigarrettes daily. Patient needs HLOC for complicated urology issue but has not followed up as instructed due to transportation issues. She has been counseled many times about arranging medical transportation through insurance. Home Meds Active Scripts Clindamycin Hcl (Clindamycin Hcl) 300 Mg Cap, 1 CAP PO TID for 7 Days, #21 CAP Prov:VINI ALBARRAN MD 03/12/23 Cephalexin (KEFLEX CAPSULE) 250 Mg Cp, 500 MG PO TID for 7 Days, #21 BOTTLE Prov:VINI ALBARRAN MD 03/12/23 Ondansetron (Zofran) 4 Mg Tab, 1 TAB PO Q6HR, #20 TAB Prov:JONNATHAN MORALES MD 03/19/20 Acetaminophen (Acetaminophen) 325 Mg Tab, 650 MG PO Q6HP PRN for 7 Days, #56 TAB Prov:JONNATHAN MORALES MD 03/19/20 Amoxicillin & Pot Clavulanate (Augmentin) 500 Mg Tab, 1 TAB PO BID, #14 TAB Prov:JONNATHAN MORALES MD 03/19/20 Reported Medications Benazepril Hcl (Benazepril Hcl) 10 Mg Tab, 10 MG PO DAILY for 30 Days, MG 02/19/25 Benazepril Hcl (Benazepril Hcl) 40 Mg Tab, 1 TAB PO DAILYPRN 03/17/20 Metoprolol Tartrate (LOPRESSOR TABLET) 50 Mg Tb, PO 03/17/20 Past Medical History Patient Family History: Patient reports no known family medical history. H&P Exam Vital Signs Vital Signs Date Time Temp Pulse Resp B/P (MAP) Pulse Ox O2 Delivery O2 Flow Rate FiO2 02/19/25 09:00 97.7 113 16 124/80 (95) 99 97.7 02/19/25 05:00 Room Air* 0 21 General Appeara: Well developed, Well nourished Pulmonary/Respiratory: Normal inspection, Normal breath sounds, Chest non- tender, Lungs clear Cardiovascular/Chest: Normal inspection, Regular rate, Normal Rhythm Neuro/Mental St: Alert, Oriented Appearance: Appropriate appearance, Appropriate insight Eye contact/ Speech: Cooperative, Good eye contact, Normal speech Skin Exam: Pallor Labs/Xrays [facility] [id number] [place] [id number] Ph: [phone] DIAGNOSTIC IMAGING Diagnostic Imaging Report : [id number] Signed PATIENT: GARETT BAL ACCT: [id number] UNIT: [id number] : 1985 LOC: ER ROOM / BED: / AGE / SEX: 39 / F ADM STATUS: REG ER SERVICE 1523 ORDERING PHYSICIAN: HERNANDO NÚÑEZ MD PROCEDURE(s): ABPLIV - CT AB PEL WITH IV CON ONLY REASON: rlq pain ORDER NUMBER(s): [id number], ACCESSION NUMBER(s): [id number] COMPUTERIZED TOMOGRAPHY ABDOMEN AND PELVIS WITH CONTRAST REASON FOR EXAM: rlq pain COMPARISON: CT abdomen/ pelvis 04/19/2020 TECHNIQUE: The exam was performed on a Multidetector scanner. Spiral scans were acquired from the diaphragm to the symphysis pubis after administration of IV contrast. 2-D coronal and sagittal reformatted images were provided. Radiation optimization: All CT scans at this facility use at least one of these dose optimization techniques: Automated exposure control mA and/or kV adjustment per patient size (includes targeted exams where dose is matched to clinical indication) or iterative reconstruction. CONTRAST ADMINISTRATION: 80 mL omnipaque 300 intravenously RADIATION DOSE: CTDI: 5.56 mGy DLP: 281.62 mGy-cm FINDINGS: There is minimal dependent atelectasis in bilateral lower lobes of the lungs. There is no pleural effusion. There is no pericardial effusion. The spleen is not enlarged. The liver is normal in size and contour. The hepatic veins are patent. The portal vein is patent. The pancreas is within normal limits. The adrenal glands are normal. The kidneys enhance symmetrically. There is an approximately 4.6 x 2.8 x 6.2 cm staghorn calculus in the right renal pelvis causing severe right hydronephrosis. There are several additional calculi forming within inferior pole calices within the right kidney. There is n o left renal calculus. The upper portion of the right ureter appears chronically dilated at approximately 1.5 cm. The distal ureter appears thickened . There is hypodense material distending the uterine cavity. No free fluid is identified in the abdomen or pelvis. The ovaries are within normal limits. There are scattered subcentimeter retroperitoneal lymph nodes. There is no abdominal aortic aneurysm. The colonic stool burden is moderate. There is no pathologic distention of the small bowel. The appendix is not seen. There is no inflammatory change about the cecum to suggest acute appendicitis. No acute osseous abnormality is identified. IMPRESSION: Severe right hydronephrosis secondary to staghorn calculus. There is chronic appearing right ureteronephrosis of the upper ureter beyond the calculus. The distal right ureter is not dilated but may be chronically thickened secondary to ureteritis. No significant pathology is identified of the left kidney or left collecting system. The appendix is not seen. There is no inflammatory change in the right lower quadrant to suggest acute appendicitis. Moderate colonic stool burden. Correlate clinically for constipation. ATED BY: RUSTY RANDLE MD DICTATED DATE/TIME: 02/18/251757 SIGNED BY: RUSTY RANDLE MD SIGNED DATE/TIME: 02/18/251757 CC: Labs Test 02/19/25 03:59 02/19/25 03:30 02/18/25 15:37 02/18/25 15:36 Range/Units White Blood Count 7.8 4.4-10.8 10^3/uL Red Blood Count 4.61 4.0-5.20 10^6/uL Hemoglobin 8.2 L 12.2-16.2 g/dL Hematocrit 28.5 L 36.0-46.0 % Mean Corpuscular Volume 61.8 L 80.0-100.0 fL Mean Corpuscular Hemoglobin 17.7 L 28.0-32.0 pg Mean Corpuscular Hemoglobin Concent 28.6 L 32.0-36.0 g/dL Red Cell Distribution Width 24.0 H 11.8-14.3 % Platelet Count 255 140-450 10^3/uL Mean Platelet Volume 8.9 6.9-10.8 fL Neutrophils (%) (Auto) 70.3 37.0-80.0 % Lymphocytes (%) (Auto) 17.3 10.0-50.0 % Monocytes (%) (Auto) 7.9 0.0-12.0 % Eosinophils (%) (Auto) 3.8 0.0-7.0 % Basophils (%) (Auto) 0.7 0.0-2.0 % Neutrophils # (Auto) 5.5 1.6-8.6 10 ^3/uL Lymphocytes # (Auto) 1.4 0.4-5.4 10 ^3/uL Monocytes # (Auto) 0.6 0-1.3 10 ^3/uL Eosinophils # (Auto) 0.3 0-0.8 10 ^3/uL Basophils # (Auto) 0.1 0-0.2 10 ^3/uL Nucleated Red Blood Cells 0.1 % Platelet Estimate [place] Large Platelets Few Hypochromasia (manual) Moderate Anisocytosis (manual) Slight Microcytosis Moderate Sodium Level 137 136-145 mmol/L Potassium Level 3.7 3.5-5.1 mmol/L Chloride Level 103 98-107 mmol/L Carbon Dioxide Level 22 20-31 mmol/L Anion Gap 12 5-15 Blood Urea Nitrogen 11 9-23 mg/dL Creatinine 0.88 0.550-1.02 mg/dL Glomerular Filtration Rate Calc 85 >90 mL/min BUN/Creatinine Ratio 12.5 10.0-20.0 Serum Glucose 88 74-106 mg/dL Calcium Level 9.7 8.7-10.4 mg/dL Iron Level 22 L 50-170 ug/dL Total Iron Binding Capacity 420 250-425 ug/dL Percent Iron Saturation 5.2 L 15-50 % Ferritin 5.3 L 10-291 ng/mL Urine Color Brown H Yellow Urine Clarity Ex.turbid Clear Urine pH 8.0 5.0-9.0 Urine Specific [place] > 1.050 H 1.001-1.035 Urine Protein 2+ H Negative Urine Ketones Negative Negative Urine Blood 2+ H Negative /uL Urine Nitrite Negative Negative Urine Bilirubin Negative Negative Urine Urobilinogen Normal Negative mg/dL Urine Leukocyte Esterase 3+ Negative /uL Urine RBC 8 0 - 4 /hpf Urine Microscopic WBC 19 H 0-5 /HPF Urine Squamous Epithelial Cells None seen <5 /hpf Urine Bacteria None seen None Seen /hpf Urine Glucose Normal Normal mg/dL Hemoglobin A1c 5.4 <5.7 % A1C Total Bilirubin 0.3 0.2-1.0 mg/dL Aspartate Amino Transferase (AST) 21 13-40 U/L Alanine Aminotransferase (ALT) 12 7-40 U/L Alkaline Phosphatase 92 46-116 U/L Troponin I High Sensitivity 3 L </=34 ng/L Total Protein 8.6 H 5.7-8.2 g/dL Albumin 4.8 3.2-4.8 g/dL Triglycerides Level 82 < 150 mg/dL Cholesterol Level 140 < 200 mg/dL LDL Cholesterol 73 < 100 mg/dL HDL Cholesterol 53 40-59 mg/dL Lipase 32 12-53 U/L Test 02/18/25 15:34 Range/Units Urine Opiates Screen Pos NEGATIVE Urine Fentanyl Screen Neg NEGATIVE Urine Barbiturates Screen Neg NEGATIVE Urine Phencyclidine Screen Neg NEGATIVE Urine Amphetamines Screen Pos NEGATIVE Urine Benzodiazepines Screen Neg NEGATIVE Urine Cocaine Screen Neg NEGATIVE Urine Cannabinoids Screen Pos NEGATIVE Assessment/Plan Problem List: (1) Polysubstance abuse (2) Nicotine dependence (3) Staghorn calculus (4) Pyelonephritis (5) Kidney stone (6) Transportation insecurity (7) Non-compliance with treatment Plan IR for right PCN placement pt will need HLOC as outpt for surgical management of XGP and staghorn calculus Plan discussed with: Patient, Spouse, Other CAITY SUERO NP Feb 19, 2025 11:04
[2025-02-19 11:27] LABS: INR 1.02 (0.9-1.15); Partial Thromboplastin Time 27.2 SEC (24.5-34.5); Prothrombin Time 10.8 sec (9.3-11.8)
--- NOTE | 2025-02-19 13:50 | DVH ---
INDICATION: R/O APPENDICITIS TECHNIQUE: Graded compression technique along with Multiple real-time sonographic images were obtain ed for evaluation of the right lower quadrant. FINDINGS: The appendix was not visualized. No free fluid or lymph nodes are seen on this exam. IMPRESSION: 1.Nonvisualization of the appendix, thus cannot exclude appendicitis.
[2025-02-19] MEDS: FERROUS SULFATE 325mg EC TAB PO SCH (14:34)
[2025-02-19] MEDS: NICOTINE 14 MG/24HR TOPICAL PATCH TD ONE (14:34)
--- NOTE | 2025-02-19 16:58 | DVHPNRES ---
Progress Note Date Seen: Feb 19, 2025 Resident Creating Document: USDHA BUSTOS RESIDENT Medical Necessity Reason Pt with a Central, PICC or Fol: No Subjective Review of Systems Ange Clifton is a 39-year-old female with past medical history of asthma and hypertension. She presented to the ED with chief complaint of right flank pain. The pain was sharp sudden, sharp, 8/10, nonradiating. Associated with nausea and vomiting, aggravated on moving, but no relieving factors She has a two month history of kidney stones, she went to [place] for a right-sided nephrolithiasis but lithotripsy was never performed. Patient states that right flank pain started worsening two days ago which is currently localized in the right lower quadrant. She reports no associated fever, diarrhea, blood in urine, burning micturition. She has a normal bowel and bladder habit. Initial labs showed a normal CBC and CMP. Troponins were negative and lipase was 32. Urinalysis suggested UTI. Her toxicology screen was positive for polysubstance abuse. CT abdomen showed severe right hydronephrosis secondary to staghorn calculus. Appendix ultrasound revealed no significant findings. A urine culture was ordered and interventional radiology and urology were consulted. Past medical history: Asthma, hypertension Past surgical history: section in 2008 Personal history: Reports no alcohol use, smokes 1 pack per day, reports no recreational drug use. Polysubstance abuse found on toxicology screen. Lives in a house. Sexually active with 1 partner. ROS: Constitutional: Denies weight loss, fever and chills. HEENT: Denies changes in vision and hearing. Respiratory: Denies shortness of breath and cough Cardiovascular: Denies chest discomfort or palpitations GI: Abdominal pain, nausea, vomiting. : History of dysuria, denies urinary frequency. Musculoskeletal: Denies myalgias and joint pain Skin: Denies rash and pruritus. Neurological: Denies dizziness, headache, vision or hearing problems Patient was examined at bedside today. She continues to complain of right-sided flank pain. Objective vital signs Vital Sign Date Time Temp Pulse Resp B/P (MAP) Pulse Ox O2 Delivery O2 Flow Rate FiO2 02/19/25 12:53 98.4 92 16 124/79 (94) 98 98.4 02/19/25 08:00 Room Air* 0 21 Total Intake and Output 7/02/18/25 02/19/25 15:00 23:00 07:00 Intake Total 1000 ml 0 ml Balance 1000 ml 0 ml medications Current Medications Medications Dose Ordered Sig/Stanford Route Start Time Stop Time Status Last Admin Dose Admin Acetaminophen 650 mg Q6HP PRN PO 02/18/25 23:45 Acetaminophen/ Hydrocodone Bitart 1 tab Q4HP PRN PO 02/18/25 23:45 02/19/25 14:35 1 TAB Ondansetron HCl 4 mg Q4HP PRN IV 02/18/25 23:45 Tamsulosin HCl 0.4 mg DAILY PO 02/19/25 00:30 02/19/25 08:34 0.4 MG Ceftriaxone Sodium 50 ml @ 100 mls/hr DAILY IV 02/19/25 10:00 02/19/25 10:31 100 MLS/HR Morphine Sulfate 1 mg Q6HP PRN IV 02/19/25 00:30 02/19/25 02:09 1 MG Amlodipine Besylate 10 mg DAILY PO 02/19/25 08:00 02/19/25 08:34 10 MG Hydralazine HCl 10 mg Q6HP PRN IV 02/19/25 02:15 02/19/25 02:14 10 MG Ferrous Sulfate 325 mg DAILY PO 02/19/25 12:00 02/19/25 14:34 325 MG Nicotine 1 patch DAILY TD 02/20/25 10:00 Future Hold Nicotine 1 patch DAILY TD 02/20/25 10:00 Future Hold Examination General: Patient alert and oriented in person, place and time. Patient following commands. HEENT: Normocephalic, atraumatic, moist mucous membranes Respiratory/pulmonary: Clear lungs bilaterally, vesicular murmurs present in almost all lung jones, no associated crackles or wheezes. Cardiovascular: Normal heart sounds S1 and S2 with no associated murmurs Abdomen: Tenderness, guarding in the right flank. McBurney sign positive. Lower pelvis has scar well healed. No palpable masses. Extremities: Body exostosis bilateral feet. Peripheral Pulses: 3+ Radial (R). 3+ Radial (L). 3+ Dorsalis pedis (R). 3+ Dorsalis pedis(L) Skin: No rashes or pruritus, there is no sacral edema present at this time. Neurological: Intact cranial nerves with no focal neurologic deficits laboratory and microbiology Laboratory Tests 02/19/25 03:59 02/19/25 03:30 Test 02/19/25 03:30 Range/Units Serum Glucose 88 74-106 mg/dL Labs and/or images reviewed: Labs reviewed by me, Image(s) reviewed by me Problem List/Assessment/Plan Problem List/Assessment/Plan #Right flank pain likely due to right-sided staghorn calculi with severe right- sided hydronephrosis #Severe right-sided hydronephrosis #Right staghorn calculi #UTI, possible #History of kidney stones -Urinalysis shows brown urine, protein 2+, blood 2+, WBCs 19 -CT of the abdomen is showing staghorn calculi in the right side with severe right-sided hydronephrosis, measuring 4.6 X 2.8 X 6.2 cm -Pain meds for pain modulation -Tamsulosin 0.4mg daily -Avoid fluids until obstruction is relieved -IR consulted for right sided nephrostomy tube placement -IV ceftriaxone -urology on board -Pending urine culture #Hypertensive urgency, resolved -Blood pressure 194/127 on admission -Continue amlodipine 10mg daily -Pain control -Monitor BP #Asthma, stable -No acute flares, currently on room air -Nebulization with albuterol, ipratropium bromide as needed #Polysubstance abuse -UDS came back positive for cannabis, amphetamines, opioids -Counseled on polysubstance use cessation including tobacco, marijuana, and amphetamine for 22 minutes including 12 minutes for tobacco use cessation #Iron-deficiency anemia -Iron supplementation with ferrous sulfate 325 mg daily. Goals of care discussed with the patient at bedside for 20min; FULL CODE Plan discussed with Dr. Vela Plan discussed with: Patient, Other (Nurse) My Orders My Orders Orders - SUDHA BUSTOS RESIDENT Procedure Category Date Status Time Ferrous Sulfate Tablet PHA 02/19/25 In Process 12:00 Complete Blood Count LAB 02/20/25 Verified 04:00 Comprehensive LAB 02/20/25 Verified Metabolic Panel 04:00 Addendum Addendum Addendum I was physically present for the garcia portions of the service provided to patient by THE RESIDENT. I have reviewed the documentation, discussed the case with resident and agree with the resident's documentation except as noted. Also the patient's clinical case was discussed with the patient's nurse. This medical document was created using an electronic medical record system with computerized dictation system. Although this document has been carefully reviewed, there might still be some phonetic and typographical errors. These areas are purely typographical due to imperfections of the software programs, and do not reflect any compromise in the patient's medical care. Late signature. Date of Service: Feb 19, 2025 Billing Provider: DOMINGA VELA MD Common Visit Codes: 59416-TEXRIAGNPU INP/OBS CARE(HIGH) Secondary Visit Codes: 82499-QRHOL CHNG SMOKING >10MIN (22 minutes counseling for polysubstance use cessation as documented in the note above), 58344-SWITHIHJ CARE PLAN 30 MINUTES (20 minutes) SUDHA BUSTOS RESIDENT Feb 19, 2025 16:58 DOMINGA VELA MD Feb 20, 2025 07:35
[2025-02-20] VITALS (19 sets, daily range): BP systolic 118–180; BP diastolic 80–123; PULSE 53–108; RESP 12–20; TEMP 97.5–98.8; O2SAT 97–100
[2025-02-20 06:57] LABS: Alanine Aminotransferase 10 U/L (7-40); Alkaline Phosphatase 78 U/L (46-116); Anion Gap 8 (5-15); BUN/Creatinine Ratio 15.2 (10.0-20.0); Blood Urea Nitrogen 15 mg/dL (9-23); Calcium 8.8 mg/dL (8.7-10.4); Carbon Dioxide 27 mmol/L (20-31); Chloride 106 mmol/L (98-107); Glucose 97 mg/dL (74-106); Potassium 4.0 mmol/L (3.5-5.1); Sodium 141 mmol/L (136-145); Total Protein 6.9 g/dL (5.7-8.2)
[2025-02-20 06:58] LABS: Albumin 3.8 g/dL (3.2-4.8); Bilirubin, Total < 0.2 mg/dL (0.2-1.0)
[2025-02-20 07:03] LABS: Nucleated Red Blood Cells % 0.1 %
[2025-02-20 07:04] LABS: Hematocrit 23.4 % (36.0-46.0); Mean Corpuscular Hemoglobin 17.7 pg (28.0-32.0); Mean Corpuscular Volume 60.7 fL (80.0-100.0)
[2025-02-20 07:10] LABS: Hemoglobin 6.8 g/dL (12.2-16.2)
[2025-02-20] MEDS ORDERED: NICOTINE 21MG/24 HR TOPICAL PATCH TD SCH (10:00)
[2025-02-20] MEDS: fentaNYL CITRATE 100 MCG/2 ML VL ONE (11:43)
[2025-02-20] MEDS: MIDAZOLAM HCL 2MG/2ML 2ml VIAL (1mg/ml) ONE (11:43)
[2025-02-20] MEDS: LIDOCAINE 2%HCL (LOCAL ANESTH.) INJ 20ML MDV ONE (11:43)
[2025-02-20] MEDS: IODIXANOL 320MG/ML 100ML BTL IV ONE (11:44)
[2025-02-20] MEDS: cefTRIAXone 1GM/50ML D5W 50 ML IV ONE (12:07)
--- NOTE | 2025-02-20 12:22 | DVHPNRES ---
Progress Note Date Seen: Feb 20, 2025 Resident Creating Document: SUDHA BUSTOS RESIDENT Medical Necessity Reason Pt with a Central, PICC or Fol: No Subjective Review of Systems Ange Clifton is a 39-year-old female with past medical history of asthma and hypertension. She presented to the ED with chief complaint of right flank pain. The pain was sharp sudden, sharp, 8/10, nonradiating. Associated with nausea and vomiting, aggravated on moving, but no relieving factors She has a two month history of kidney stones, she went to [place] for a right-sided nephrolithiasis but lithotripsy was never performed. Patient states that right flank pain started worsening two days ago which is currently localized in the right lower quadrant. She reports no associated fever, diarrhea, blood in urine, burning micturition. She has a normal bowel and bladder habit. Initial labs showed a normal CBC and CMP. Troponins were negative and lipase was 32. Urinalysis suggested UTI. Her toxicology screen was positive for polysubstance abuse. CT abdomen showed severe right hydronephrosis secondary to staghorn calculus. Appendix ultrasound revealed no significant findings. A urine culture was ordered and interventional radiology and urology were consulted. Past medical history: Asthma, hypertension Past surgical history: section in 2008 Personal history: Reports no alcohol use, smokes 1 pack per day, reports no recreational drug use. Polysubstance abuse found on toxicology screen. Lives in a house. Sexually active with 1 partner. 02/20/25: Patient examined at bedside, she continues to complain of pain in the right flank. Her Hb is low today, will do stool occult blood. She will undergo nephrostomy tube placement today. We will give fluid after the procedure. She will undergo HLOC outpatient for staghorn. ROS: Constitutional: Denies weight loss, fever and chills. HEENT: Denies changes in vision and hearing. Respiratory: Denies shortness of breath and cough Cardiovascular: Denies chest discomfort or palpitations GI: Abdominal pain, nausea, vomiting. : History of dysuria, denies urinary frequency. Musculoskeletal: Denies myalgias and joint pain Skin: Denies rash and pruritus. Neurological: Denies dizziness, headache, vision or hearing problems Objective vital signs Vital Sign Date Time Temp Pulse Resp B/P (MAP) Pulse Ox O2 Delivery O2 Flow Rate FiO2 02/20/25 09:57 98 Room Air* 0 21 02/20/25 09:00 98.7 102 20 130/87 (101) 98.7 Total Intake and Output 02/19/25 02/19/25 02/20/25 15:00 23:00 07:00 Intake Total 50 ml 340 ml 1300 ml Balance 50 ml 340 ml 1300 ml medications Current Medications Medications Dose Ordered Sig/Stanford Route Start Time Stop Time Status Last Admin Dose Admin Acetaminophen 650 mg Q6HP PRN PO 02/18/25 23:45 Acetaminophen/ Hydrocodone Bitart 1 tab Q4HP PRN PO 02/18/25 23:45 02/20/25 01:24 1 TAB Ondansetron HCl 4 mg Q4HP PRN IV 02/18/25 23:45 Tamsulosin HCl 0.4 mg DAILY PO 02/19/25 00:30 02/19/25 08:34 0.4 MG Ceftriaxone Sodium 50 ml @ 100 mls/hr DAILY IV 02/19/25 10:00 02/19/25 10:31 100 MLS/HR Morphine Sulfate 1 mg Q6HP PRN IV 02/19/25 00:30 02/19/25 21:06 1 MG Amlodipine Besylate 10 mg DAILY PO 02/19/25 08:00 02/19/25 08:34 10 MG Hydralazine HCl 10 mg Q6HP PRN IV 02/19/25 02:15 02/19/25 02:14 10 MG Ferrous Sulfate 325 mg DAILY PO 02/19/25 12:00 02/19/25 14:34 325 MG Nicotine 1 patch DAILY TD 02/20/25 10:00 Albuterol 2.5 mg Q6HPRN PRN NEB 02/19/25 18:15 Examination General: Patient alert and oriented in person, place and time. Patient following commands. HEENT: Normocephalic, atraumatic, moist mucous membranes Respiratory/pulmonary: Clear lungs bilaterally, vesicular murmurs present in almost all lung jnoes, no associated crackles or wheezes. Cardiovascular: Normal heart sounds S1 and S2 with no associated murmurs Abdomen: Tenderness, guarding in the right flank. McBurney sign positive. Lower pelvis has scar well healed. No palpable masses. Extremities: Body exostosis bilateral feet. Peripheral Pulses: 3+ Radial (R). 3+ Radial (L). 3+ Dorsalis pedis (R). 3+ Dorsalis pedis(L) Skin: No rashes or pruritus, there is no sacral edema present at this time. Neurological: Intact cranial nerves with no focal neurologic deficits laboratory and microbiology Laboratory Tests 02/20/25 05:25 Test 02/20/25 05:25 Range/Units Serum Glucose 97 74-106 mg/dL Microbiology Date/Time Source Procedure Growth Status 02/18/25 15:34 Voided Urine Urine Culture - Preliminary Resulted Problem List/Assessment/Plan Problem List/Assessment/Plan #Right flank pain likely due to right-sided staghorn calculi with severe right- sided hydronephrosis #Severe right-sided hydronephrosis #Right staghorn calculi #UTI, possible #History of kidney stones -Urinalysis shows brown urine, protein 2+, blood 2+, WBCs 19 -CT of the abdomen is showing staghorn calculi in the right side with severe right-sided hydronephrosis, measuring 4.6 X 2.8 X 6.2 cm -Pain meds for pain modulation -Tamsulosin 0.4mg daily -IR consulted for right sided nephrostomy tube placement -IV ceftriaxone -Urology on board -Pending urine culture -HLOC as O/P for surgical management of XGP and staghorn calculus -Fluids after nephrostomy. #Hypertensive urgency, resolved -Blood pressure 194/127 on admission -Continue amlodipine 10mg daily -Pain control -Monitor BP #Asthma, stable -No acute flares, currently on room air -Nebulization with albuterol, ipratropium bromide as needed #Polysubstance abuse -UDS came back positive for cannabis, amphetamines, opioids -Counseled on drug cessation #Iron-deficiency anemia -Iron supplementation with ferrous sulfate 325 mg daily. #Constipation -Laxatives and docusate started. She will continue on discharge. -KUB tomorrow Goals of care discussed with the patient at bedside for > 25min FULL CODE Plan discussed with Dr. Ortega Plan discussed with: Patient My Orders My Orders Orders - SUDHA BUSTOS Procedure Category Date Status Time Communication Order ORDERS 02/20/25 Transmitted 12:11 SUDHA BUSTOS RESIDENT Feb 20, 2025 12:22
--- NOTE | 2025-02-20 12:56 | DVH ---
XY PERCUTANEOUS NEPHROSTOMY, HISTORY: Staghorn stone with obstructive uropathy. PROCEDURE: Informed consent was obtained. The patient was placed on the fluoroscopic table in a prone position and IV sedation administered. 1 gram of ceftriaxone was given IV. The left flank was preppe d with chlorhexidine which was allowed to dry and draped in the usual sterile fashion. Time out was p erformed. and the soft tissues infiltrated with 1% lidocaine local anesthetic. Utilizing ultrasound g uidance, a 21 gauge Accu Stick needle was advanced from a posterolateral approach into an middle pole calyx, and a small amount of contrast was injected under fluoroscopy to confirm positioning. Over a mandril wire, exchange was made to a non-vascular access set, through which was advanced an 0.035 wir e. Following serial dilation, an 8.5 Japanese multipurpose nephrostomy catheter was placed with tip pig tailed within the renal pelvis. Position was confirmed with antegrade nephrostogram. The catheter was secured in place and connected to gravity drainage. A sterile dressing was applied. No immediate com plication was identified. DAP 72 FLUOROSCOPY TIME: 2.6 minutes. CONTRAST USED: 15 mL Isovue 300. SEDATION: Dr. Armando Townsend was personally responsible for the administration of moderate sedation during the procedure performed, including the use of an independent trained observer who had no other duties during the procedure. The drugs utilized were IV fentanyl and versed (see nursing log for details). The total time of supervision by the attending physician was approximately 45 minutes. FINDINGS: Large left staghorn calculus. Dilated left renal collecting system involving the calyces/re nal pelvis/ureter. New 8.5 micronesian nephrostomy tube via a posterior mid pole calyceal access, with loop coiled within the renal pelvis. IMPRESSION: Large left staghorn calculus. Left hydronephrosis due to obstructive uropathy, status post placement of 8.5 micronesian left percutaneo us nephrostomy catheter. PLAN: Routine catheter care.
--- NOTE | 2025-02-20 12:56 | DVH ---
US US GUIDANCE FOR NEEDLE PLACEME, HISTORY: Staghorn stone with obstructive uropathy. PROCEDURE: Informed consent was obtained. The patient was placed on the fluoroscopic table in a prone position and IV sedation administered. 1 gram of ceftriaxone was given IV. The left flank was preppe d with chlorhexidine which was allowed to dry and draped in the usual sterile fashion. Time out was p erformed. and the soft tissues infiltrated with 1% lidocaine local anesthetic. Utilizing ultrasound g uidance, a 21 gauge Accu Stick needle was advanced from a posterolateral approach into an middle pole calyx, and a small amount of contrast was injected under fluoroscopy to confirm positioning. Over a mandril wire, exchange was made to a non-vascular access set, through which was advanced an 0.035 wir e. Following serial dilation, an 8.5 Kiswahili multipurpose nephrostomy catheter was placed with tip pig tailed within the renal pelvis. Position was confirmed with antegrade nephrostogram. The catheter was secured in place and connected to gravity drainage. A sterile dressing was applied. No immediate com plication was identified. DAP 72 FLUOROSCOPY TIME: 2.6 minutes. CONTRAST USED: 15 mL Isovue 300. SEDATION: Dr. Armando Townsend was personally responsible for the administration of moderate sedation during the procedure performed, including the use of an independent trained observer who had no other duties during the procedure. The drugs utilized were IV fentanyl and versed (see nursing log for details). The total time of supervision by the attending physician was approximately 45 minutes. FINDINGS: Large left staghorn calculus. Dilated left renal collecting system involving the calyces/re nal pelvis/ureter. New 8.5 serbian nephrostomy tube via a posterior mid pole calyceal access, with loo p coiled within the renal pelvis. IMPRESSION: Large left staghorn calculus. Left hydronephrosis due to obstructive uropathy, status post placement of 8.5 serbian left percutaneou s nephrostomy catheter. PLAN: Routine catheter care.
[2025-02-20] MEDS: HYDROmorphone HCL 2 MG/ML VL/or syr IV ONE (14:13)
[2025-02-20] MEDS: HYDROmorphone HCL 2 MG/ML VL/or syr ONE (14:20)
[2025-02-20] MEDS: NICOTINE 14 MG/24HR TOPICAL PATCH TD SCH (15:18)
[2025-02-20] MEDS: SODIUM CHLORIDE 0.9% 1,000 ML IV SCH (15:21)
[2025-02-20] MEDS: POLYETHYLENE GLYCOL 17 GM PWDR PO SCH (15:54)
[2025-02-20] MEDS: ONDANSETRON HCL 4 MG/2 ML VIAL IV PRN (15:58)
[2025-02-20] MEDS: KETOROLAC TROMETH 30 MG/ML 1ML VIAL IV ONE (16:39)
[2025-02-20 19:32] LABS: Hematocrit 29.5 % (36.0-46.0); Hemoglobin 8.9 g/dL (12.2-16.2)
[2025-02-20] MEDS: ALBUTEROL SULF 2.5 MG/0.5ML(0.5%) NEB SOLN NEB PRN (19:50)
[2025-02-20] MEDS: HYDROcodone-ACET 10/325MG TAB PO PRN (21:21)
[2025-02-21] VITALS (10 sets, daily range): BP systolic 124–162; BP diastolic 90–118; PULSE 82–108; RESP 18–19; TEMP 36.9; O2SAT 94–100
[2025-02-21] MEDS: MORPHINE SULFATE INJ 2 MG/ml SYRG IV PRN (00:47)
[2025-02-21 07:38] LABS: Hematocrit 29.7 % (36.0-46.0); Nucleated Red Blood Cells % 0.1 %
[2025-02-21 07:39] LABS: Hemoglobin 9.0 g/dL (12.2-16.2); Mean Corpuscular Hemoglobin 19.8 pg (28.0-32.0); Mean Corpuscular Volume 65.3 fL (80.0-100.0)
[2025-02-21 07:54] LABS: Alanine Aminotransferase 11 U/L (7-40); Albumin 4.1 g/dL (3.2-4.8); Alkaline Phosphatase 78 U/L (46-116); Anion Gap 9 (5-15); BUN/Creatinine Ratio 9.2 (10.0-20.0); Calcium 9.7 mg/dL (8.7-10.4); Carbon Dioxide 25 mmol/L (20-31); Chloride 102 mmol/L (98-107); Potassium 3.9 mmol/L (3.5-5.1); Total Protein 7.4 g/dL (5.7-8.2)
[2025-02-21 07:55] LABS: Bilirubin, Total 0.2 mg/dL (0.2-1.0); Blood Urea Nitrogen 8 mg/dL (9-23); Glucose 110 mg/dL (74-106); Sodium 136 mmol/L (136-145)
[2025-02-21] MEDS ORDERED: FERR-7 PO (11:14)
[2025-02-21] MEDS ORDERED: HYDR-4798 PO (11:16)
[2025-02-21] MEDS ORDERED: FER325T PO (11:16)
--- NOTE | 2025-02-21 11:23 | DVH ---
Date: 02/21/2025 07:50 AM Examination: XY KUB ABDOMEN SINGLE VIEW History: Intractable pain abdomen Comparison: None TECHNIQUE: Frontal views of the abdomen was obtained. FINDINGS: Bowel gas pattern is unremarkable. The lung bases are unremarkable. No acute osseous abnormality identified. IMPRESSION: Nonobstructive bowel gas pattern. Right nephrostomy tube. Contrast in the right collecting system.
--- NOTE | 2025-02-21 11:29 | DVHDSRES ---
Discharge Summary Date of Admission Resident Creating Document: SUDHA BUSTOS RESIDENT Feb 18, 2025 at 23:44 Date of Discharge: Feb 21, 2025 Admitting Diagnosis Right flank pain likely due to right-sided staghorn calculi with severe right- sided hydronephrosis Wounds: No large wounds Labs/Diagnostic Data: Laboratory Results Test 02/21/25 04:52 02/19/25 10:28 02/19/25 03:59 02/19/25 03:30 White Blood Count 9.0 10^3/uL (4.4-10.8) Red Blood Count 4.55 10^6/uL (4.0-5.20) Hemoglobin 9.0 g/dL (12.2-16.2) Hematocrit 29.7 % (36.0-46.0) Mean Corpuscular Volume 65.3 fL (80.0-100.0) Mean Corpuscular Hemoglobin 19.8 pg (28.0-32.0) Mean Corpuscular Hemoglobin Concent 30.3 g/dL (32.0-36.0) Red Cell Distribution Width 26.6 % (11.8-14.3) Platelet Count 229 10^3/uL (140-450) Mean Platelet Volume 9.2 fL (6.9-10.8) Neutrophils (%) (Auto) 83.9 % (37.0-80.0) Lymphocytes (%) (Auto) 5.7 % (10.0-50.0) Monocytes (%) (Auto) 5.2 % (0.0-12.0) Eosinophils (%) (Auto) 4.8 % (0.0-7.0) Basophils (%) (Auto) 0.4 % (0.0-2.0) Neutrophils # (Auto) 7.6 10 ^3/uL (1.6-8.6) Lymphocytes # (Auto) 0.5 10 ^3/uL (0.4-5.4) Monocytes # (Auto) 0.5 10 ^3/uL (0-1.3) Eosinophils # (Auto) 0.4 10 ^3/uL (0-0.8) Basophils # (Auto) 0 10 ^3/uL (0-0.2) Nucleated Red Blood Cells 0.1 % Sodium Level 136 mmol/L (136-145) Potassium Level 3.9 mmol/L (3.5-5.1) Chloride Level 102 mmol/L (98-107) Carbon Dioxide Level 25 mmol/L (20-31) Anion Gap 9 (5-15) Blood Urea Nitrogen 8 mg/dL (9-23) Creatinine 0.87 mg/dL (0.550-1.02) Glomerular Filtration Rate Calc 86 mL/min (>90) BUN/Creatinine Ratio 9.2 (10.0-20.0) Serum Glucose 110 mg/dL (74-106) Calcium Level 9.7 mg/dL (8.7-10.4) Total Bilirubin 0.2 mg/dL (0.2-1.0) Aspartate Amino Transferase (AST) 20 U/L (13-40) Alanine Aminotransferase (ALT) 11 U/L (7-40) Alkaline Phosphatase 78 U/L (46-116) Total Protein 7.4 g/dL (5.7-8.2) Albumin 4.1 g/dL (3.2-4.8) Prothrombin Time 10.8 sec (9.3-11.8) Prothrombin Time INR 1.02 (0.9-1.15) Activated Partial Thromboplast Time 27.2 SEC (24.5-34.5) Platelet Estimate [place] Large Platelets Few Hypochromasia (manual) Moderate Anisocytosis (manual) Slight Microcytosis Moderate Iron Level 22 ug/dL (50-170) Total Iron Binding Capacity 420 ug/dL (250-425) Percent Iron Saturation 5.2 % (15-50) Ferritin 5.3 ng/mL (10-291) Test 02/18/25 15:37 02/18/25 15:36 02/18/25 15:34 Urine Color Brown (Yellow) Urine Clarity Ex.turbid (Clear) Urine pH 8.0 (5.0-9.0) Urine Specific [place] > 1.050 (1.001-1.035) Urine Protein 2+ (Negative) Urine Ketones Negative (Negative) Urine Blood 2+ /uL (Negative) Urine Nitrite Negative (Negative) Urine Bilirubin Negative (Negative) Urine Urobilinogen Normal mg/dL (Negative) Urine Leukocyte Esterase 3+ /uL (Negative) Urine RBC 8 /hpf (0 - 4) Urine Microscopic WBC 19 /HPF (0-5) Urine Squamous Epithelial Cells None seen /hpf (<5) Urine Bacteria None seen /hpf (None Seen) Urine Glucose Normal mg/dL (Normal) Hemoglobin A1c 5.4 % A1C (<5.7) Troponin I High Sensitivity 3 ng/L (</=34) Triglycerides Level 82 mg/dL (< 150) Cholesterol Level 140 mg/dL (< 200) LDL Cholesterol 73 mg/dL (< 100) HDL Cholesterol 53 mg/dL (40-59) Lipase 32 U/L (12-53) Urine Opiates Screen Pos (NEGATIVE) Urine Fentanyl Screen Neg (NEGATIVE) Urine Barbiturates Screen Neg (NEGATIVE) Urine Phencyclidine Screen Neg (NEGATIVE) Urine Amphetamines Screen Pos (NEGATIVE) Urine Benzodiazepines Screen Neg (NEGATIVE) Urine Cocaine Screen Neg (NEGATIVE) Urine Cannabinoids Screen Pos (NEGATIVE) Other Laboratory Tests 02/21/25 04:52 Brief Hx & Hospital Course: Ange Clifton is a 39-year-old female with past medical history of asthma and hypertension. She presented to the ED with chief complaint of right flank pain. The pain was sharp sudden, sharp, 8/10, nonradiating. Associated with intractable nausea and vomiting, aggravated on moving, but without relieving factors She has a two month history of kidney stones, she went to [facility] for a right-sided nephrolithiasis but lithotripsy was never performed. Patient states that right flank pain started worsening two days before admission, which was localized in the right lower quadrant. She reports no associated fever, diarrhea, blood in urine, burning micturition. She has a normal bowel and bladder habit. Initial labs showed a normal CBC and CMP. Troponins were negative and lipase was 32. Urinalysis suggested UTI. Her toxicology screen was positive for polysubstance abuse. CT abdomen showed severe right hydronephrosis secondary to staghorn calculus. CT abdomen, pelvis also showed hypodense material distending the uterine cavity. She will follow-up with gynecology outpatient for management. Appendix ultrasound revealed no significant findings. A urine culture was ordered and interventional radiology and urology were consulted. During her stay, she was started on IV ceftriaxone, pain control regimen and antiemetics. A right sided nephrostomy tube was placed, now draining clear fluid. She is stable. Counseled on substance abuse and advised follow up with urology for further management. Discharge Plan: Follow up closely with coverage specialist rn outpatient. Follow-up with Interventional Radiology as outpatient for management of nephrostomy tube Follow up with PCP in one week. Higher level of care advised for management of kidney stone. Continue norco, tyelnol as needed for pain control. Continue ferritin 325 mg daily. Continue Bactrim twice daily for 3 days Consults/Reason for consult Urology consultation was done, advised IR for right PCN placement. She will need [facility] as outpt for surgical management of XGP and staghorn calculus Operations or Procedures XY PERCUTANEOUS NEPHROSTOMY, HISTORY: Staghorn stone with obstructive uropathy. PROCEDURE: Informed consent was obtained. The patient was placed on the fluoroscopic table in a prone position and IV sedation administered. 1 gram of ceftriaxone was given IV. The left flank was prepped with chlorhexidine which was allowed to dry and draped in the usual sterile fashion. Time out was performed. and the soft tissues infiltrated with 1% lidocaine local anesthetic. Utilizing ultrasound guidance, a 21 gauge Accu Stick needle was advanced from a posterolateral approach into an middle pole calyx, and a small amount of contrast was injected under fluoroscopy to confirm positioning. Over a mandril wire, exchange was made to a non-vascular access set, through which was advanced an 0.035 wire. Following serial dilation, an 8.5 [place]an multipurpose nephrostomy catheter was placed with tip pigtailed within the renal pelvis. Position was confirmed with antegrade nephrostogram. The catheter was secured in place and connected to gravity drainage. A sterile dressing was applied. No immediate complication was identified. DAP 72 FLUOROSCOPY TIME: 2.6 minutes. CONTRAST USED: 15 mL Isovue 300. SEDATION: Dr. Armando Townsend was personally responsible for the administration of moderate sedation during the procedure performed, including the use of an independent trained observer who had no other duties during the procedure. The drugs utilized were IV fentanyl and versed (see nursing log for details). The total time of supervision by the attending physician was approximately 45 minutes. FINDINGS: Large left staghorn calculus. Dilated left renal collecting system involving the calyces/renal pelvis/ureter. New 8.5 bahamian nephrostomy tube via a posterior mid pole calyceal access, with loop coiled within the renal pelvis. IMPRESSION: Large left staghorn calculus. Left hydronephrosis due to obstructive uropathy, status post placement of 8.5 bahamian left percutaneous nephrostomy catheter. PLAN: Routine catheter care. --- US US GUIDANCE FOR NEEDLE PLACEME, HISTORY: Staghorn stone with obstructive uropathy. PROCEDURE: Informed consent was obtained. The patient was placed on the fluoroscopic table in a prone position and IV sedation administered. 1 gram of ceftriaxone was given IV. The Right flank was prepped with chlorhexidine which was allowed to dry and draped in the usual sterile fashion. Time out was performed. and the soft tissues infiltrated with 1% lidocaine local anesthetic. Utilizing ultrasound guidance, a 21 gauge Accu Stick needle was advanced from a posterolateral approach into an middle pole calyx, and a small amount of contrast was injected under fluoroscopy to confirm positioning. Over a mandril wire, exchange was made to a non-vascular access set, through which was advanced an 0.035 wire. Following serial dilation, an 8.5 [place]an multipurpose nephrostomy catheter was placed with tip pigtailed within the renal pelvis. Position was confirmed with antegrade nephrostogram. The catheter was secured in place and connected to gravity drainage. A sterile dressing was applied. No immediate complication was identified. DAP 72 FLUOROSCOPY TIME: 2.6 minutes. CONTRAST USED: 15 mL Isovue 300. SEDATION: Dr. Armando Townsend was personally responsible for the administration of moderate sedation during the procedure performed, including the use of an independent trained observer who had no other duties during the procedure. The drugs utilized were IV fentanyl and versed (see nursing log for details). The total time of supervision by the attending physician was approximately 45 minutes. FINDINGS: Large Right staghorn calculus. Dilated left renal collecting system involving the calyces/renal pelvis/ureter. New 8.5 bahamian nephrostomy tube via a posterior mid pole calyceal access, with loop coiled within the renal pelvis. IMPRESSION: Right staghorn calculus. Right hydronephrosis due to obstructive uropathy, status post placement of 8.5 bahamian right percutaneous nephrostomy catheter. ---- Multiple real-time sonographic images were obtained for evaluation of the right lower quadrant. FINDINGS: The appendix was not visualized. No free fluid or lymph nodes are seen on this exam. IMPRESSION: 1.Nonvisualization of the appendix, thus cannot exclude appendicitis. --- COMPUTERIZED TOMOGRAPHY ABDOMEN AND PELVIS WITH CONTRAST REASON FOR EXAM: rlq pain COMPARISON: CT abdomen/ pelvis 04/19/2020 TECHNIQUE: The exam was performed on a Multidetector scanner. Spiral scans were acquired from the diaphragm to the symphysis pubis after administration of IV contrast. 2-D coronal and sagittal reformatted images were provided. Radiation optimization: All CT scans at this facility use at least one of these dose optimization techniques: Automated exposure control mA and/or kV adjustment per patient size (includes targeted exams where dose is matched to clinical indication) or iterative reconstruction. CONTRAST ADMINISTRATION: 80 mL omnipaque 300 intravenously RADIATION DOSE: CTDI: 5.56 mGy DLP: 281.62 mGy-cm FINDINGS: There is minimal dependent atelectasis in bilateral lower lobes of the lungs. There is no pleural effusion. There is no pericardial effusion. The spleen is not enlarged. The liver is normal in size and contour. The hepatic veins are patent. The portal vein is patent. The pancreas is within normal limits. The adrenal glands are normal. The kidneys enhance symmetrically. There is an approximately 4.6 x 2.8 x 6.2 cm staghorn calculus in the right renal pelvis causing severe right hydronephrosis. There are several additional calculi forming within inferior pole calices within the right kidney. There is no left renal calculus. The upper portion of the right ureter appears chronically dilated at approximately 1.5 cm. The distal ureter appears thickened . There is hypodense material distending the uterine cavity. No free fluid is identified in the abdomen or pelvis. The ovaries are within normal limits. There are scattered subcentimeter retroperitoneal lymph nodes. There is no abdominal aortic aneurysm. The colonic stool burden is moderate. There is no pathologic distention of the small bowel. The appendix is not seen. There is no inflammatory change about the cecum to suggest acute appendicitis. No acute osseous abnormality is identified. IMPRESSION: Severe right hydronephrosis secondary to staghorn calculus. There is chronic appearing right ureteronephrosis of the upper ureter beyond the calculus. The distal right ureter is not dilated but may be chronically thickened secondary to ureteritis. No significant pathology is identified of the left kidney or left collecting system. The appendix is not seen. There is no inflammatory change in the right lower quadrant to suggest acute appendicitis. Condition at Discharge: Stable Final Diagnosis/Problems List Right flank pain likely due to right-sided staghorn calculi with severe right-sided hydronephrosis Severe right-sided hydronephrosis Right staghorn calculi UTI, possible History of kidney stones Hypertensive urgency, resolved Asthma, stable Polysubstance abuse Iron-deficiency anemia, likely intrauterine bleed Discharge Disposition: Home Discharge Instruct/Medications Diet: Renal Activity: No Restrictions, As Tolerated New Medications: Ferrous Sulfate (Ferrous Sulfate) 325 Mg Tab 325 MG PO EOD for 30 Days, #30 TAB 1 Refill Hydrocodone-Acetaminophen (Hydrocodone Bitartrate/AC 10-325 mg) 1 Tab Tab 1 TAB PO QID PRN for 7 Days, #28 TAB 0 Refills Care Plan: Follow up closely with coverage specialist rn outpatient. Follow-up with Interventional Radiology as outpatient for management of nephrostomy tube Follow up with PCP in one week. Higher level of care advised for management of kidney stone. Continue norco, tyelnol as needed for pain control. Continue ferritin 325 mg daily. Continue Bactrim twice daily for 3 days Scheduled Amoxicillin & Pot Clavulanate (Augmentin), 1 TAB PO BID Benazepril Hcl (Benazepril Hcl), 1 TAB PO DAILYPRN, (Reported) Benazepril Hcl (Benazepril Hcl), 10 MG PO DAILY, (Reported) Cephalexin (Keflex Capsule), 500 MG PO TID Clindamycin Hcl (Clindamycin Hcl), 1 CAP PO TID Ferrous Sulfate (Ferrous Sulfate), 325 MG PO EOD Ondansetron (Zofran), 1 TAB PO Q6HR Scheduled PRN Acetaminophen (Acetaminophen), 650 MG PO Q6HP PRN Hydrocodone-Acetaminophen (Hydrocodone Bitartrate/AC 10-325 mg), 1 TAB PO QID PRN Miscellaneous Medications Metoprolol Tartrate (Lopressor Tablet), PO, (Reported) Discharge Statement: "Patient was advised to return to the ER or call 911 if any headaches, dizziness, shortness of breath, chest pain, abdominal pain, bleeding, fevers, or worsening of medical condition. Patient was counseled about treatment plan, medications, possible side effects, patientverbalized understanding. All questions were answered to the best of my ability. This discharge took greater then 30 minutes in planning, reviewing documentation, counseling the patient, and discussing with other team members." ASSESSMENT ASSESSMENT Assessment SUDHA BUSTOS RESIDENT Feb 21, 2025 11:29
[2025-02-21] MEDS: IRON SUCROSE COMPLEX 110 ML IV SCH (11:42)
[2025-02-21] MEDS ORDERED: SULF800T23 PO (16:22)
== END 2025-02-21 18:05 | disposition home or self-care (01) | DRG 463 ==
LOC: ER 14:33 → EDBD 14:33 → OVERFLOW 23:44 → CENTRAL 02-19 04:53 → TELE-CENTR 02-19 05:18
PROVIDERS: ADMIT Student in an Organized Health Care Education/Training Program; ATTEND Student in an Organized Health Care Education/Training Program
PROC: 30233N1 Transfusion of Nonautologous Red Blood Cells into Peripheral Vein, Percutaneous Approach (ICD-10-PCS; principal; 2025-02-20)
PROC: 0T9430Z Drainage of Left Kidney Pelvis with Drainage Device, Percutaneous Approach (ICD-10-PCS; 2025-02-20)
PROC: BT12ZZZ Fluoroscopy of Left Kidney (ICD-10-PCS; 2025-02-20)
DX: N13.6 Pyonephrosis (principal); D50.0 Iron deficiency anemia secondary to blood loss (chronic); F17.210 Nicotine dependence, cigarettes, uncomplicated; I10 Essential (primary) hypertension; F41.9 Anxiety disorder, unspecified; J45.909 Unspecified asthma, uncomplicated; Z59.82 Transportation insecurity; Z82.49 Family history of ischemic heart disease and other diseases of the circulatory system; Z83.3 Family history of diabetes mellitus; Z91.199 Patient's noncompliance with other medical treatment and regimen due to unspecified reason; Z79.899 Other long term (current) drug therapy
CPT/HCPCS: 36415; 74018; 74177; 74425; 76705; 76942; 80048; 80053; 80061; 80307; 81001; 82728; 83036; 83540; 83550; 83690; 84484; 85014; 85018; 85025; 85610; 85730; 86850; 86900; 86901; 86920; 87086; 87205; 94640; 96374; 96375; 99152; G0378; J1756; J1885; J2250; J2405; Q9967

== ENCOUNTER 2025-03-10 04:24 | Emergency (ER) | payer OTHER ==
[~2025-03-10] VITALS: Ht 162.6 cm; Wt 50.0 kg
[~2025-03-10 04:24] MED LIST changes: +BENA10TA90 PO; +FER325T PO; +HYDR-4798 PO; +SULF800T23 PO
[2025-03-10 07:40] VITALS: BP 154/123; PULSE 85; RESP 16; TEMP 98; O2SAT 100
--- NOTE | 2025-03-10 08:22 | ED.PDOC ---
General HPI Comments 39 year old female presents to the ED via EMS with a chief complaint of RT flank pain onset 1 day. Patient states she began expereincing RT flank pain about 1 day ago. She currently has RT nephrostomy tube in place, does not recall when it was placed, believes she might have pulled it when she was changing. PMHx HTN. Denies nausea, vomiting, diarrhea, dysuria, hematuria, fevers, chills, hematemesis, dizziness, headache. No other symptoms or modifying factors present at this time. Chief Complaint: Flank Pain Time Seen by MD: 07:45 Primary Care Provider: UNKNOWN Reviewed notes: Medications, Allergies Allergies: Coded Allergies: NO KNOWN ALLERGIES (Unverified , 03/16/20) Home Meds Active Scripts Sulfamethoxazole W/Trimethopri (Trimethoprim/Sulfamethoxa) 1 Tab Tab, 1 TAB PO BID for 3 Days, #6 TAB Prov:BAKARI YEUNG RESIDENT 02/21/25 Hydrocodone-Acetaminophen (Hydrocodone Bitartrate/AC 10-325 mg) 1 Tab Tab, 1 TAB PO QID PRN for 7 Days, #28 TAB 0 Refills Prov:SIRENA LEAHY MD 02/21/25 Ferrous Sulfate (Ferrous Sulfate) 325 Mg Tab, 325 MG PO EOD for 30 Days, #30 TAB 1 Refill Prov:SIRENA LEAHY MD 02/21/25 Clindamycin Hcl (Clindamycin Hcl) 300 Mg Cap, 1 CAP PO TID for 7 Days, #21 CAP Prov:VINI ALBARRAN MD 03/12/23 Cephalexin (KEFLEX CAPSULE) 250 Mg Cp, 500 MG PO TID for 7 Days, #21 BOTTLE Prov:VINI ALBARRAN MD 03/12/23 Ondansetron (Zofran) 4 Mg Tab, 1 TAB PO Q6HR, #20 TAB Prov:JONNATHAN MORALES MD 03/19/20 Acetaminophen (Acetaminophen) 325 Mg Tab, 650 MG PO Q6HP PRN for 7 Days, #56 TAB Prov:JONNATHAN MORALES MD 03/19/20 Amoxicillin & Pot Clavulanate (Augmentin) 500 Mg Tab, 1 TAB PO BID, #14 TAB Prov:JONNATHAN MORALES MD 03/19/20 Reported Medications Benazepril Hcl (Benazepril Hcl) 10 Mg Tab, 10 MG PO DAILY for 30 Days, MG 02/19/25 Benazepril Hcl (Benazepril Hcl) 40 Mg Tab, 1 TAB PO DAILYPRN 03/17/20 Metoprolol Tartrate (LOPRESSOR TABLET) 50 Mg Tb, PO 03/17/20 Information Source: Patient Mode of Arrival: EMS Severity: Moderate Timing: Days Duration: Since onset Prehospital treatment: None Onset: Spontaneous Symptoms: Other History of: None Location: (R) Flank associated signs and symptoms: Flank Pain Past Medical History PAST MEDICAL HISTORY: Anxiety, Asthma, HTN, Kidney Stones, UTI'S Surgical History: ELECTRICAL SYSTEMS ENGINEER History: Denies all ELECTRICAL SYSTEMS ENGINEER Hx Family History Family History: Family hx of DM, Family hx of HTN Social History Smoker: Cigarettes, Less Than 1 Pack/Day Alcohol: Denies ETOH Use Drugs: Marijuana Lives In: Home Constitutional: denies: chills, diaphoresis, fatigue, fever, malaise, sweats, weakness, others EENTM: denies: blurred vision, double vision, ear bleeding, ear discharge, ear drainage, ear pain, ear ringing, eye pain, eye redness, hearing loss, mouth pain, mouth swelling, nasal discharge, nose bleeding, nose congestion, nose pain , photophobia, tearing, throat pain, throat swelling, voice changes, others Respiratory: denies: cough, hemoptysis, orthopnea, SOB at rest, shortness of breath, SOB with excertion, stridor, wheezing, others Cardiovascular: denies: chest pain, dizzy spells, diaphoresis, Dyspnea on exertion, edema, irregular heart beat, left arm pain, lightheadedness, palpitations, PND, syncope, others Gastrointestinal: denies: abdomen distended, abdominal pain, blood streaked bowels, constipated, diarrhea, dysphagia, difficulty swallowing, hematemesis, melena, nausea, poor appetite, poor fluid intake, rectal bleeding, rectal pain, vomiting, others Genitourinary: reports: flank pain (rt); denies: abnormal vagina bleeding, burning, dyspareunia, dysuria, frequency, hematuria, incontinence, pain, p regnant, vagina discharge, urgency, others Neurological: denies: dizziness, fainting, headache, left sided numbness, left sided weakness, numbness, paresthesia, pre-existing deficit, right sided numbness, right sided weakness, seizure, speech problems, tingling, tremors, weakness, others Musculoskeletal: denies: back pain, gout, joint pain, joint swelling, muscle pain, muscle stiffness, neck pain, others Integumetry: denies: bruises, change in color, change in hair/nails, dryness, laceration, lesions, lumps, rash, wounds, others Allergic/Immunocompromised: denies: Difficulty Healing, Frequent Infections, Hives, Itching, others Hematologic/Lymphatic: denies: anemia, blood clots, easy bleeding, easy bruising, swollen glands, others Endocrine: denies: excessive hunger, excessive sweating, excessive thirst, excessive urination, flushing, intolerance to cold, intolerance to heat, unex plained weight gain, unexplained weight loss, others Psychiatric: denies: anxiety, bipolar disorder, depression, hopeless, panic disorder, schizophrenia, sleepless, suicidal, others All Other Systems: Reviewed and Negative Physical Exam General Appearance: Moderate Distress, Normal HEENT: Normal ENT Inspection, Pharynx Normal, TMs Normal Neck: Full Range of Motion, Non-Tender, Normal, Normal Inspection Respiratory: Chest Non-Tender, Lungs Clear, No Accessory Muscle Use, No Respiratory Distress, Normal Breath Sounds Cardiovascular: No Edema, No JVD, No Murmur, No Gallop, Normal Peripheral Pulses, Regular Rate/Rhythm Breast Exam: Deferred Gastrointestinal: No Organomegaly, Non Tender, No Pulsatile Mass, Normal Bowel Sounds, Soft Genitalia: Deferred Pelvic: Deferred Rectal: Deferred Extremities: No calf tenderness, Normal capillary refill, Normal inspection, Normal range of motion, Non-tender, No pedal edema Musculoskeletal : Apperance: Normal Neurologic: Alert, roustabout head II-XII nml as Tested, No Motor Deficits, Normal Affect, Normal Mood, No Sensory Deficits Cerebellar Function: Normal Reflexes: Normal Skin: Dry, Normal Color, Warm Peripheral Pulses: 3+ Radial (R), 3+ Radial (L) Lymphatic: No Adenopathy Was a procedure done? Was a procedure done?: No Differential Diagnosis Kidney stone (Female): Musculoskeletal pain, Urinary obstruction, Urolithiasis X-Ray, Labs, Meds, VS Vital Signs Date Time Temp Pulse Resp B/P (MAP) Pulse Ox O2 Delivery O2 Flow Rate FiO2 03/10/25 07:48 154/123 03/10/25 07:40 98.0 85 16 154/123 (133) 100 98.0 03/10/25 04:52 174/130 03/10/25 04:47 98.5 88 16 173/130 100 98.5 Current Medications Medications (Trade) Dose Ordered Sig/[place] Route Start Time Stop Time Status Last Admin Clonidine HCl (Catapres Tablet) 0.1 mg ONCE ONCE PO 03/10/25 04:45 03/10/25 04:46 DC 03/10/25 04:52 Patient alert. Blood pressure elevated. Was given clonidine Was given Norvasc. CT scan of the abdomen to check the nephrostomy tube. Explained to the patient. Continue monitoring. Time of 1ST Reevaluation: 08:15 Reevaluation 1ST: Unchanged Patient Education/Counseling: Diagnosis, Treatment, Prognosis Family Education/Counseling: No Family Present SEPSIS Sepsis Screen Date sepsis recognized/suspect: Mar 10, 2025 Time Sepsis recognized/suspect: 424 Recent Procedure: No On Antibiotic Therapy: No Respiratory Rate >20: No Heart Rate >90: No Temp<36 C (96.8 F) or >38.3 C: No SBP <90 or MAP <65 mmHG: No New Acute Mental Status Change: No Is the patient on CPAP, BIPAP,: No Physician Orders Vital Signs Q1HR (03/10/25 04:31) Urinalysis (03/10/25 04:35) Vital Signs Date Time Temp Pulse Resp B/P (MAP) Pulse Ox O2 Delivery O2 Flow Rate FiO2 03/10/25 07:48 154/123 03/10/25 07:40 98.0 85 16 154/123 (133) 100 98.0 03/10/25 04:52 174/130 03/10/25 04:47 98.5 88 16 173/130 100 98.5 Medications Medications Dose Ordered Sig/[place] Route Start Time Stop Time Status Last Admin Dose Admin Clonidine HCl 0.1 mg ONCE ONCE PO 03/10/25 04:45 03/10/25 04:46 DC 03/10/25 04:52 Departure 1 Departure Time of Disposition: 11:26 Impression: Primary Impression: Hypertensive emergency Disposition: ADMITTED INPATIENT Admit to: Med Surg Condition: Guarded Critical Care Note Critical Care Time?: Yes (90 min-critical care time only) Stability Stability form required: No Heart Score Heart Score: Heart Score Response (Comments) Value History N/A 0 EKG N/A 0 Age N/A 0 Risk Factors N/A 0 Troponin N/A 0 Total 0 I personally scribed for VINI ALBARRAN MD ([email or web address]) on 03/10/25 at 08:22. Electronically submitted by Krissy Hewitt ([email or web address]). VINI ALBARRAN MD Mar 10, 2025 08:22
[2025-03-10] MEDS ORDERED: SODIUM CHLORIDE 0.9% 1,000 ML IV ONE (11:30)
== END 2025-03-10 11:32 | disposition left against medical advice (07) ==
LOC: ER 04:24 → EDBD 04:24 → ER 11:32
DX: I16.1 Hypertensive emergency (principal); J45.909 Unspecified asthma, uncomplicated; I10 Essential (primary) hypertension; F17.210 Nicotine dependence, cigarettes, uncomplicated; F12.90 Cannabis use, unspecified, uncomplicated; Z87.440 Personal history of urinary (tract) infections; Z87.442 Personal history of urinary calculi; Z98.890 Other specified postprocedural states; Z79.899 Other long term (current) drug therapy

== ENCOUNTER 2025-03-14 12:58 | Emergency (ER) | payer OTHER ==
[~2025-03-14] VITALS: Ht 162.6 cm; Wt 50.0 kg
--- NOTE | 2025-03-14 14:09 | ED.PDOC ---
General HPI Comments 39-year-old female presents with a chief complaint of pain to nephrostomy tubing on her right flank. Patient states that she initially got a nephrostomy tube placed due to having excess fluid in her right kidney. Patient states that the tube was supposed to come out on ThursdayMarch 10, but patient left the ER beforehand because "It was taking too long and I did not want to wait anymore". Patient is still able to make her own urine. Patient states that the nephrostomy tube was supposed to come out last week. PMHx: HTN, Asthma, Anxiety, Kidney Stones, UTI's PSHx: HPI: Poor Historian. Past Medical History: Past Surgical History: REVIEW OF SYSTEMS: CONSTITUTIONAL: Denies acute: fever, diaphoresis, chills, generalized weakness. HEAD: Denies acute: headache, photophobia Eyes: Denies acute: Double vision, vision loss, eye pain, eye discharge. EARS: Denies acute: tinnitus, hearing loss, ear discharge, ear pain, THROAT: Denies acute: sore throat, swelling, difficulty swallowing , pain with swallowing, change in voice. NECK: Denies acute: neck pain, neck swelling, stiff neck. HEART: Denies acute : chest pain, palpitations, LUNGS: Denies acute: SOB, wheezing, cough, hemoptysis ABDOMEN: Denies acute: abdominal pain, Nausea, Vomiting, diarrhea, melena , hematemesis, hematochezia SKIN: Denies acute: rash, redness, lesions, itchiness. EXTREMITIES: Denies acute: calf pain, numbness, tingling, weakness, denies pain in extremity. Denies acute: Low back pain. Neuro: Denies acute: focal neurological deficit, motor or sensory focal neurological deficit, tremors, seizure like activity, confusion, dizziness, change in mental status, loss of bowel or bladder function, cauda equina like symptoms. : Denies acute: dysuria, hematuria, flank pain, increase in urinary frequency. PSYCH: Denies acute: hallucination, suicidal ideation, homicidal ideation. FEMALE: Denies acute: abnormal vaginal bleeding, foul odor, unusual discharge. PHYSICAL EXAM: General: --------acute distress, awake and alert. Head: normocephalic, atraumatic. Neck: supple, trachea is midline, no swelling. Throat: Normal phonation. Eyes:, no erythema, no purulent discharge, no proptosis, no icterus. Heart: regular rate, regular rhythm, no significant murmur appreciated. Lungs: no apparent respiratory distress, Able to speak in full sentences. No wheezing, no rhonchi, no crackles. No stridors Clear to auscultation bilaterally. Abdomen: non tender to palpation, non distended, soft, no guarding, no rebound, + bowel sounds. Neuro: Awake, Alert, oriented to name, self, situation, follows commands GCS=15. Speech is normal. Skin: no petechia, no purpura, no cyanosis, non-pale, not jaundice. Lower extremities: --no - Pitting edema no deformity, no focal swelling, no calf TTP. Makes eye contact. moves all four extremities. Face: no apparent facial droop. No CVA tenderness to percussion bilaterally. Evaluation of the nephrostomy site on the right flank area reveals no apparent discharge or erythema or swelling. Patient has pain on the right mid clavicular line region. ED COURSE: DISCLAIMER: This medical document was created using an electronic medical record system with voice recognition software and computerized dictation system. Although this doc ument has been carefully reviewed, there might still be some phonetic and typographical errors. Occasional wrong-word or "sound-alike" substitutions may have occurred due to the inherent limitations of voice recognition software. These areas are purely typographical due to imperfections of the software programs and do not reflect any compromise in the patient's medical care. Please read the chart carefully and recognize, using context, where these substitutions have occurred. Chief Complaint: Tube Replacement Time Seen by MD: 13:56 Primary Care Provider: UNKNOWN Reviewed notes: Medications, Allergies Allergies: Coded Allergies: NO KNOWN ALLERGIES (Unverified , 03/16/20) Home Meds Active Scripts Sulfamethoxazole W/Trimethopri (Trimethoprim/Sulfamethoxa) 1 Tab Tab, 1 TAB PO BID for 3 Days, #6 TAB Prov:BAKARI YEUNG RESIDENT 02/21/25 Hydrocodone-Acetaminophen (Hydrocodone Bitartrate/AC 10-325 mg) 1 Tab Tab, 1 TAB PO QID PRN for 7 Days, #28 TAB 0 Refills Prov:SIRENA LEAHY MD 02/21/25 Ferrous Sulfate (Ferrous Sulfate) 325 Mg Tab, 325 MG PO EOD for 30 Days, #30 TAB 1 Refill Prov:SIRENA LEAHY MD 02/21/25 Clindamycin Hcl (Clindamycin Hcl) 300 Mg Cap, 1 CAP PO TID for 7 Days, #21 CAP Prov:VINI ALBARRAN MD 03/12/23 Cephalexin (KEFLEX CAPSULE) 250 Mg Cp, 500 MG PO TID for 7 Days, #21 BOTTLE Prov:VINI ALBARRAN MD 03/12/23 Ondansetron (Zofran) 4 Mg Tab, 1 TAB PO Q6HR, #20 TAB Prov:JONNATHAN MORALES MD 03/19/20 Acetaminophen (Acetaminophen) 325 Mg Tab, 650 MG PO Q6HP PRN for 7 Days, #56 TAB Prov:JONNATHAN MORALES MD 03/19/20 Amoxicillin & Pot Clavulanate (Augmentin) 500 Mg Tab, 1 TAB PO BID, #14 TAB Prov:JONNATHAN MORALES MD 03/19/20 Reported Medications Benazepril Hcl (Benazepril Hcl) 10 Mg Tab, 10 MG PO DAILY for 30 Days, MG 02/19/25 Benazepril Hcl (Benazepril Hcl) 40 Mg Tab, 1 TAB PO DAILYPRN 03/17/20 Metoprolol Tartrate (LOPRESSOR TABLET) 50 Mg Tb, PO 03/17/20 Information Source: Patient Mode of Arrival: Wheelchair Past Medical History PAST MEDICAL HISTORY: Anxiety, Asthma, HTN, Kidney Stones, UTI'S 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 Was a procedure done?: No Differential Diagnosis Kidney stone (Female): Other (Flank Pain;DDX include Nephrolethiasis, obstructive uropathy, kidney cancer, renal infarct, intraabdominal neoplasm, lower lobe pneumonia, retroperitoneal hemorrhage, pancreatitis, aneurysm, dissection, musculoskeletal, rib contusion/trauma, hematoma, PYLONEPHRITIS, muscle strain, spinal disease. IN A FEMALE) X-Ray, Labs, Meds, VS Vital Signs Date Time Temp Pulse Resp B/P (MAP) Pulse Ox O2 Delivery O2 Flow Rate FiO2 03/14/25 15:30 98.0 91 18 145/101 (116) 99 98.0 03/14/25 13:01 99.7 96 18 166/120 98 99.7 Lab Test 03/14/25 14:42 03/14/25 14:00 Range/Units White Blood Count 5.6 4.4-10.8 10^3/uL Red Blood Count 4.44 4.0-5.20 10^6/uL Hemoglobin 9.8 L 12.2-16.2 g/dL Hematocrit 32.2 L 36.0-46.0 % Mean Corpuscular Volume 72.5 L 80.0-100.0 fL Mean Corpuscular Hemoglobin 22.1 L 28.0-32.0 pg Mean Corpuscular Hemoglobin Concent 30.4 L 32.0-36.0 g/dL Red Cell Distribution Width 32.7 H 11.8-14.3 % Platelet Count 308 140-450 10^3/uL Mean Platelet Volume 9.0 6.9-10.8 fL Neutrophils (%) (Auto) 70.6 37.0-80.0 % Lymphocytes (%) (Auto) 9.8 L 10.0-50.0 % Monocytes (%) (Auto) 9.7 0.0-12.0 % Eosinophils (%) (Auto) 8.7 H 0.0-7.0 % Basophils (%) (Auto) 1.2 0.0-2.0 % Neutrophils # (Auto) 3.9 1.6-8.6 10 ^3/uL Lymphocytes # (Auto) 0.5 0.4-5.4 10 ^3/uL Monocytes # (Auto) 0.5 0-1.3 10 ^3/uL Eosinophils # (Auto) 0.5 0-0.8 10 ^3/uL Basophils # (Auto) 0.1 0-0.2 10 ^3/uL Nucleated Red Blood Cells 0.1 % Platelet Estimate Adequate Large Platelets Few Hypochromasia (manual) Moderate Anisocytosis (manual) Marked Microcytosis Moderate Stomatocytes Few Schistocytes Few Sodium Level 136 136-145 mmol/L Potassium Level 3.7 3.5-5.1 mmol/L Chloride Level 102 98-107 mmol/L Carbon Dioxide Level 26 20-31 mmol/L Anion Gap 8 5-15 Blood Urea Nitrogen 5 L 9-23 mg/dL Creatinine 0.75 0.550-1.02 mg/dL Glomerular Filtration Rate Calc 103 >90 mL/min BUN/Creatinine Ratio 6.7 L 10.0-20.0 Serum Glucose 96 74-106 mg/dL Lactic Acid Level 1.1 0.4-2.0 mmol/L Calcium Level 9.5 8.7-10.4 mg/dL Total Bilirubin 0.2 0.2-1.0 mg/dL Aspartate Amino Transferase (AST) 16 13-40 U/L Alanine Aminotransferase (ALT) 10 7-40 U/L Alkaline Phosphatase 78 46-116 U/L Troponin I High Sensitivity 4 </=34 ng/L Total Protein 7.8 5.7-8.2 g/dL Albumin 4.4 3.2-4.8 g/dL Urine Color Light-brown Yellow Urine Clarity Ex.turbid Clear Urine pH 8.0 5.0-9.0 Urine Specific [place] 1.006 1.001-1.035 Urine Protein 1+ H Negative Urine Ketones Negative Negative Urine Blood 2+ H Negative /uL Urine Nitrite Negative Negative Urine Bilirubin Negative Negative Urine Urobilinogen Normal Negative mg/dL Urine Leukocyte Esterase 3+ Negative /uL Urine RBC 27 0 - 4 /hpf Urine WBC Clumps Present None Seen /hpf Urine Microscopic WBC 431 H 0-5 /HPF Urine Squamous Epithelial Cells Few <5 /hpf Urine Amorphous Crystals Few None Seen /hpf Urine Bacteria Few H None Seen /hpf Urine Mucus Few None Seen Urine Glucose Normal Normal mg/dL [facility] [address] [facility] [address] Ph: [phone] DIAGNOSTIC IMAGING Diagnostic Imaging Report : [id number] Signed PATIENT: GARETT BAL ACCT: [id number] UNIT: [id number] : 1985 LOC: ER ROOM / BED: / AGE / SEX: 39 / F ADM STATUS: REG ER SERVICE 1400 ORDERING PHYSICIAN: ANJELICA MACHADO DO PROCEDURE(s): ABPL - CT AB PEL WO CON-NO ORAL OR IV REASON: R NEPHROSTOYM SITE PAIN ORDER NUMBER(s): [id number], ACCESSION NUMBER(s): [id number] Exam: CT CT AB PEL WO CON-NO ORAL OR IV History: R NEPHROSTOYM SITE PAIN Comparison Study: XY KUB ABDOMEN SINGLE VIEW on DOS: 02/21/25, CT ABD PELVIS WO CONTRAST on DOS: 04/19/20 Technique: Multidetector spiral CT of the abdomen was performed from lung bases to pubic symphysis. Imaging was performed without IV contrast. Axial, coronal and sagittal multiplanar reformats were obtained from the axial data set by the technologist. Radiation Dose : 1. Abdomen/Pelvis: CTDIvol 5.07 mGy, DLP 3.92 mGy*cm. Findings: Evaluation of solid organs is limited due to lack of intravenous contrast use. Lung Bases: No acute or significant lung base finding. Normal heart size. No pleural or pericardial effusion. Liver: The liver is normal in size. No focal lesions. Gallbladder and Biliary Tree: Unremarkable Spleen: Unremarkable Pancreas: The pancreas is grossly normal in appearance. Adrenal Glands: Unremarkable Kidneys: Staghorn right renal calculus which has increased in size when compared to the prior CT of 04/19/2020. Nephrostomy catheter seen in the right renal pelvis. Severe right-sided caliectasis. No perinephric abscess. No left-sided hydroureteronephrosis No left renal calculi Bladder: Grossly unremarkable for degree of distention. Bowel: The stomach is grossly normal in appearance. Small bowel and colon are normal in caliber and distribution. The appendix is not visualized; however, no secondary findings of acute appendicitis identified. Gaseous distention of the bowel. Ascites: Absent Lymphadenopathy: No mesenteric, retroperitoneal or periportal lymphadenopathy. Abdominal Wall and Mesentery: Unremarkable. Vasculature: The visualized abdominal aorta is normal in size and caliber. Evaluation of abdominal and pelvic vessels is limited due to lack of intravenous contrast. Pelvic Organs: Unremarkable Musculoskeletal: No aggressive focal bony lesions, acute fractures or dislocation. IMPRESSION: 1. Right sided nephrostomy catheter in the right renal pelvis Large staghorn calculus Severe caliectasis right kidney Radiation optimization: All CT scans at this facility use at least one of these dose optimization techniques: automated exposure control mA and/or kV adjustment per patient size (includes targeted exams where dose is matched to clinical indication) or iterative reconstruction. ATED BY: EULOGIO WARREN MD DICTATED DATE/TIME: 03/14/251441 SIGNED BY: EULOGIO WARREN MD SIGNED DATE/TIME: 03/14/251441 Time of 1ST Reevaluation: 14:26 Reevaluation 1ST: Unchanged Time of 2ND Reevaluation: 16:03 (Per urology note in the past:"pt will need HLOC as outpt for surgical management of XGP and staghorn calculusPlan discussed with: Patient, Spouse, OtherAMANGeremiasCAITY NPJul 2024 11:04DICTATED BY:CAITY SUERO NPDICTATED DATE/TIME:02/19/25 1104 ELECTRONICALLY SIGNED BY:CAITY SUERO NP 02/19/25 1116 ELECTRONICALLY CO-SIGNED BY:") Patient Education/Counseling: Diagnosis, Treatment Family Education/Counseling: No Family Present Comments Case was discussed with the hospitalist team. They reviewed the chart and are familiar with this patient. They stated that the patient is supposed to follow up with the higher level of care. There is nothing for urology team to heal to do for this patient here. They said that the patient nephrostomy tube needs to remain. I was notified by the triage treatment nurse that the patient left against medical advice because she wanted a bed which she will could not give her at this time. Departure 1 Departure Time of Disposition: 15:42 Impression: Primary Impression: Flank pain Additional Impressions: Nephrostomy complication Nephrostomy present Complication of nephrostomy Left against medical advice Staghorn calculus Disposition: LEFT AGAINST MEDICAL ADVICE Admit to: Tele Condition: Guarded Discharged With: Self Critical Care Note Critical Care Time?: No I personally scribed for ANJELICA MACHADO DO ([email or web address]) on 03/14/25 at 14:09. E lectronically submitted by Dante Capellan ([email or web address]). I personally scribed for ANJELICA MACHADO DO ([email or web address]) on 03/14/25 at 16:03. El ectronically submitted by Genevieve Morales ([email or web address]). I personally scribed for ANJELICA MACHADO DO ([email or web address]) on 03/14/25 at 16:07. Electr onically submitted by Dante Capellan ([email or web address]). ANJELCIA MACHADO DO Mar 14, 2025 14:09
--- NOTE | 2025-03-14 14:44 | DVH ---
Exam: CT CT AB PEL WO CON-NO ORAL OR IV History: R NEPHROSTOYM SITE PAIN Comparison Study: XY KUB ABDOMEN SINGLE VIEW on DOS: 02/21/25, CT ABD PELVIS WO CONTRAST on DOS: Technique: Multidetector spiral CT of the abdomen was performed from lung bases to pubic symphysis. Imaging was performed without IV contrast. Axial, coronal and sagittal multiplanar reformats were ob tained from the axial data set by the technologist. Radiation Dose : 1. Abdomen/Pelvis: CTDIvol 5.07 mGy, DLP 3.92 mGy*cm. Findings: Evaluation of solid organs is limited due to lack of intravenous contrast use. Lung Bases: No acute or significant lung base finding. Normal heart size. No pleural or pericardial effusion. Liver: The liver is normal in size. No focal lesions. Gallbladder and Biliary Tree: Unremarkable Spleen: Unremarkable Pancreas: The pancreas is grossly normal in appearance. Adrenal Glands: Unremarkable Kidneys: Staghorn right renal calculus which has increased in size when compared to the prior CT of 0 04/19/2020. Nephrostomy catheter seen in the right renal pelvis. Severe right-sided caliectasis. No pe rinephric abscess. No left-sided hydroureteronephrosis No left renal calculi Bladder: Grossly unremarkable for degree of distention. Bowel: The stomach is grossly normal in appearance. Small bowel and colon are normal in caliber and d istribution. The appendix is not visualized; however, no secondary findings of acute appendicitis id entified. Gaseous distention of the bowel. Ascites: Absent Lymphadenopathy: No mesenteric, retroperitoneal or periportal lymphadenopathy. Abdominal Wall and Mesentery: Unremarkable. Vasculature: The visualized abdominal aorta is normal in size and caliber. Evaluation of abdominal a nd pelvic vessels is limited due to lack of intravenous contrast. Pelvic Organs: Unremarkable Musculoskeletal: No aggressive focal bony lesions, acute fractures or dislocation. IMPRESSION: 1. Right sided nephrostomy catheter in the right renal pelvis Large staghorn calculus Severe caliectasis right kidney Radiation optimization: All CT scans at this facility use at least one of these dose optimization es hniques: automated exposure control mA and/or kV adjustment per patient size (includes targeted exam s where dose is matched to clinical indication) or iterative reconstruction.
[2025-03-14 15:14] LABS: Hematocrit 32.2 % (36.0-46.0); Nucleated Red Blood Cells % 0.1 %
[2025-03-14 15:17] LABS: Hemoglobin 9.8 g/dL (12.2-16.2); Mean Corpuscular Hemoglobin 22.1 pg (28.0-32.0); Mean Corpuscular Volume 72.5 fL (80.0-100.0)
[2025-03-14 15:22] LABS: Alanine Aminotransferase 10 U/L (7-40); Albumin 4.4 g/dL (3.2-4.8); Alkaline Phosphatase 78 U/L (46-116); Anion Gap 8 (5-15); BUN/Creatinine Ratio 6.7 (10.0-20.0); Calcium 9.5 mg/dL (8.7-10.4); Carbon Dioxide 26 mmol/L (20-31); Chloride 102 mmol/L (98-107); Glucose 96 mg/dL (74-106); Potassium 3.7 mmol/L (3.5-5.1); Sodium 136 mmol/L (136-145); Total Protein 7.8 g/dL (5.7-8.2)
[2025-03-14 15:23] LABS: Bilirubin, Total 0.2 mg/dL (0.2-1.0); Blood Urea Nitrogen 5 mg/dL (9-23)
[2025-03-14 15:30] VITALS: BP 145/101; PULSE 91; RESP 18; TEMP 98; O2SAT 99
[2025-03-14] MEDS: cefTRIAXone 1GM/50ML D5W 50 ML IV ONE (15:35)
[2025-03-14] MEDS: SODIUM CHLORIDE 0.9% 1,000 ML IV ONE (15:35)
[2025-03-14 16:07] LABS: Anisocytosis Marked
[2025-03-14 16:08] LABS: Stomatocytes Few
[2025-03-14 18:24] LABS: Urine Amorphous Crystal FEW /hpf (None Seen); Urine Protein, UAD 1+ (Negative); Urine WBC Clumps PRESENT /hpf (None Seen)
== END 2025-03-14 17:37 | disposition left against medical advice (07) ==
LOC: ER 12:58
DX: T83.092A Other mechanical complication of nephrostomy catheter, initial encounter (principal); N28.89 Other specified disorders of kidney and ureter; N99.528 Other complication of incontinent external stoma of urinary tract; J45.909 Unspecified asthma, uncomplicated; I10 Essential (primary) hypertension; F17.210 Nicotine dependence, cigarettes, uncomplicated; Z79.899 Other long term (current) drug therapy
CPT/HCPCS: 36415; 74176; 80053; 81001; 83605; 84484; 85025; 96365; 99285; J0696

== ENCOUNTER 2025-04-28 23:07 | Emergency (ER) | payer OTHER ==
[~2025-04-28] VITALS: Ht 162.6 cm; Wt 49.2 kg
[2025-04-29 00:18] LABS: Hematocrit 28.7 % (36.0-46.0); Hemoglobin 8.8 g/dL (12.2-16.2)
[2025-04-29 00:20] LABS: Mean Corpuscular Hemoglobin 21.6 pg (28.0-32.0); Mean Corpuscular Volume 70.6 fL (80.0-100.0); Nucleated Red Blood Cells % 0.0 %
[2025-04-29 00:25] LABS: Chloride 105 mmol/L (98-107); Potassium 3.7 mmol/L (3.5-5.1); Sodium 138 mmol/L (136-145)
[2025-04-29 00:26] LABS: Anion Gap 7 (5-15); Calcium 9.2 mg/dL (8.7-10.4); Carbon Dioxide 26 mmol/L (20-31)
[2025-04-29 00:31] LABS: BUN/Creatinine Ratio 12.0 (10.0-20.0); Blood Urea Nitrogen 10 mg/dL (9-23); Glucose 104 mg/dL (74-106); Lipase 44 U/L (12-53)
[2025-04-29 01:13] LABS: Anisocytosis Slight
[2025-04-29 01:14] LABS: Stomatocytes Few
[2025-04-29] MEDS: LIDOCAINE VISCOUS 2% 15ML UD PO ONE (02:12)
[2025-04-29] MEDS: MAALOX PLUS or MAALOX 30 ML PO ONE (02:12)
[2025-04-29 02:21] VITALS: BP 182/114; PULSE 83; RESP 16; TEMP 98.4; O2SAT 100
[2025-04-29] MEDS ORDERED: SIME80CH49 PO (02:56)
[2025-04-29] MEDS ORDERED: CLON0.2T PO (02:56)
[2025-04-29] MEDS ORDERED: DICY10CA PO (02:56)
--- NOTE | 2025-04-29 02:57 | ED.PDOC ---
GI ASSESSMENT HPI Comments Patient is a 40-year-old female who arrives to the ED today for evaluation of abdominal pain that began this morning at 7:00 a.m. and has worsened throughout the day. Patient states the pain is sharp and burning. Patient denies any history of intra-abdominal concerns. Importantly, patient's blood pressure at arrival was 216/132. Patient states she is aware of elevated blood pressure nor fast, but does not take medications for unknown reasons. No fever nausea or vomiting. Chief Complaint: Abdominal Pain Time Seen by MD: 23:13 Primary Care Provider: UNKNOWN Reviewed Notes: Nurses Notes Allergies: Coded Allergies: NO KNOWN ALLERGIES (Unverified , 03/16/20) Home Meds Active Scripts Sulfamethoxazole W/Trimethopri (Trimethoprim/Sulfamethoxa) 1 Tab Tab, 1 TAB PO BID for 3 Days, #6 TAB Prov:BAKARI YEUNG RESIDENT 02/21/25 Hydrocodone-Acetaminophen (Hydrocodone Bitartrate/AC 10-325 mg) 1 Tab Tab, 1 TAB PO QID PRN for 7 Days, #28 TAB 0 Refills Prov:SIRENA LEAHY MD 02/21/25 Ferrous Sulfate (Ferrous Sulfate) 325 Mg Tab, 325 MG PO EOD for 30 Days, #30 TAB 1 Refill Prov:SIRENA LEAHY MD 02/21/25 Clindamycin Hcl (Clindamycin Hcl) 300 Mg Cap, 1 CAP PO TID for 7 Days, #21 CAP Prov:VINI ALBARRAN MD 03/12/23 Cephalexin (KEFLEX CAPSULE) 250 Mg Cp, 500 MG PO TID for 7 Days, #21 BOTTLE Prov:VINI ALBARRAN MD 03/12/23 Ondansetron (Zofran) 4 Mg Tab, 1 TAB PO Q6HR, #20 TAB Prov:JONNATHAN MORALES MD 03/19/20 Acetaminophen (Acetaminophen) 325 Mg Tab, 650 MG PO Q6HP PRN for 7 Days, #56 TAB Prov:JONNATHAN MORALES MD 03/19/20 Amoxicillin & Pot Clavulanate (Augmentin) 500 Mg Tab, 1 TAB PO BID, #14 TAB Prov:JONNATHAN MORALES MD 03/19/20 Reported Medications Benazepril Hcl (Benazepril Hcl) 10 Mg Tab, 10 MG PO DAILY for 30 Days, MG 02/19/25 Benazepril Hcl (Benazepril Hcl) 40 Mg Tab, 1 TAB PO DAILYPRN 03/17/20 Metoprolol Tartrate (LOPRESSOR TABLET) 50 Mg Tb, PO 03/17/20 Information Source: Patient Mode of Arrival: Ambulatory Timing: Hours Duration: Since onset Prehospital treatment: None Quality: Aching, Burning, Cramping Vomitus: Food Particles, Soft, Watery Severity: Moderate Recent: None Recent Hx of: None Pain Location: Epigastric Modifying Factors: Food Associated sign and symptoms: Nausea, Vomiting, Abdominal Pain Past Medical History PAST MEDICAL HISTORY: Anxiety, Asthma, HTN, Kidney Stones, UTI'S 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 Family History Family History: Family hx of DM, Family hx of HTN Social History Smoker: Cigarettes, Less Than 1 Pack/Day Alcohol: Denies ETOH Use Drugs: Marijuana Lives In: Home Constitutional: denies: chills, diaphoresis, fatigue, fever, malaise, sweats, weakness, others EENTM: denies: blurred vision, double vision, ear bleeding, ear discharge, ear drainage, ear pain, ear ringing, eye pain, eye redness, hearing loss, mouth pain, mouth swelling, nasal discharge, nose bleeding, nose congestion, nose pain, photophobia, tearing, throat pain, throat swelling, voice changes, others Respiratory: denies: cough, hemoptysis, orthopnea, SOB at rest, shortness of breath, SOB with excertion, stridor, wheezing, others Cardiovascular: denies: chest pain, dizzy spells, diaphoresis, Dyspnea on exertion, edema, irregular heart beat, left arm pain, lightheadedness, palpitations, PND, syncope, others Gastrointestinal: reports: abdominal pain, nausea; denies: abdomen distended, blood streaked bowels, constipated, diarrhea, dysphagia, difficulty swallowing, hematemesis, melena, poor appetite, poor fluid intake, rectal bleeding, rectal pain, vomiting, others Genitourinary: denies: abnormal vagina bleeding, burning, dyspareunia, dysuria, flank pain, frequency, hematuria, incontinence, pain, , vagina discharge, urgency, others Neurological: denies: dizziness, fainting, headache, left sided numbness, left sided weakness, numbness, paresthesia, pre-existing deficit, right sided numbness, right sided weakness, seizure, speech problems, tingling, tremors, weakness, others Musculoskeletal: denies: back pain, gout, joint pain, joint swelling, muscle pain, muscle stiffness, neck pain, others Integumetry: denies: bruises, change in color, change in hair/nails, dryness, laceration, lesions, lumps, rash, wounds, others Allergic/Immunocompromised: denies: Difficulty Healing, Frequent Infections, Hives, Itching, others Hematologic/Lymphatic: denies: anemia, blood clots, easy bleeding, easy bruising, swollen glands, others Endocrine: denies: excessive hunger, excessive sweating, excessive thirst, excessive urination, flushing, intolerance to cold, intolerance to heat, unexplained weight gain, unexplained weight loss, others Psychiatric: denies: anxiety, bipolar disorder, depression, hopeless, panic disorder, schizophrenia, sleepless, suicidal, others Physical Exam General Appearance: Moderate Distress (Due to abdominal pain concerns.), Normal HEENT: Normal ENT Inspection, Pharynx Normal, TMs Normal Neck: Full Range of Motion, Non-Tender, Normal, Normal Inspection Respiratory: Chest Non-Tender, Lungs Clear, No Accessory Muscle Use, No Respiratory Distress, Normal Breath Sounds Cardiovascular: No Edema, No JVD, No Murmur, No Gallop, Normal Peripheral Pulses, Regular Rate/Rhythm Breast Exam: Deferred Gastrointestinal: Other (Diffuse epigastric pain bilaterally extends slightly towards the upper chest. No signs of trauma. Abdomen was mildly rigid.) Genitalia: Deferred Pelvic: Deferred Rectal: Deferred Extremities: No calf tenderness, Normal capillary refill, Normal inspection, Normal range of motion, Non-tender, No pedal edema Neurologic: Alert Cerebellar Function: NOT DONE Reflexes: NOT DONE Skin: Dry, Normal Color, Warm Lymphatic: No Adenopathy Was a procedure done? Was a procedure done?: No GI differential Dx Differential Diagnosis: Constipation, Gastritis/PUD, Gastroenteritis, Pancreatitis, Other (Illicit drug use, acid reflux, hypertensive urgency) X-Ray, Labs, Meds, VS Vital Signs Date Time Temp Pulse Resp B/P (MAP) Pulse Ox O2 Delivery O2 Flow Rate FiO2 04/29/25 02:21 98.4 83 16 182/114 (136) 100 98.4 04/29/25 02:18 182/114 04/29/25 00:44 162/110 (127) 04/28/25 23:40 216/132 04/28/25 23:08 98.1 74 22 216/132 100 98.1 Lab Test 04/29/25 02:32 04/29/25 00:34 04/28/25 23:52 Range/Units Urine Color Pending Urine Clarity Pending Urine pH Pending Urine Specific [place] Pending Urine Protein Pending Urine Ketones Pending Urine Blood Pending Urine Nitrite Pending Urine Bilirubin Pending Urine Urobilinogen Pending Urine Leukocyte Esterase Pending Urine RBC Pending Urine Microscopic WBC Pending Urine Squamous Epithelial Cells Pending Urine Bacteria Pending Urine Glucose Pending Urine Opiates Screen Pending Urine Fentanyl Screen Pending Urine Barbiturates Screen Pending Urine Phencyclidine Screen Pending Urine Amphetamines Screen Pending Urine Benzodiazepines Screen Pending Urine Cocaine Screen Pending Urine Cannabinoids Screen Pending Troponin I High Sensitivity 4 3 L </=34 ng/L White Blood Count 8.7 4.4-10.8 10^3/uL Red Blood Count 4.06 4.0-5.20 10^6/uL Hemoglobin 8.8 L 12.2-16.2 g/dL Hematocrit 28.7 L 36.0-46.0 % Mean Corpuscular Volume 70.6 L 80.0-100.0 fL Mean Corpuscular Hemoglobin 21.6 L 28.0-32.0 pg Mean Corpuscular Hemoglobin Concent 30.6 L 32.0-36.0 g/dL Red Cell Distribution Width 26.5 H 11.8-14.3 % Platelet Count 161 140-450 10^3/uL Mean Platelet Volume 9.3 6.9-10.8 fL Neutrophils (%) (Auto) 69.7 37.0-80.0 % Lymphocytes (%) (Auto) 13.0 10.0-50.0 % Monocytes (%) (Auto) 7.2 0.0-12.0 % Eosinophils (%) (Auto) 8.8 H 0.0-7.0 % Basophils (%) (Auto) 1.3 0.0-2.0 % Neutrophils # (Auto) 6.0 1.6-8.6 10 ^3/uL Lymphocytes # (Auto) 1.1 0.4-5.4 10 ^3/uL Monocytes # (Auto) 0.6 0-1.3 10 ^3/uL Eosinophils # (Auto) 0.8 0-0.8 10 ^3/uL Basophils # (Auto) 0.1 0-0.2 10 ^3/uL Nucleated Red Blood Cells 0.0 % Platelet Estimate [place] Large Platelets Few Hypochromasia (manual) Moderate Anisocytosis (manual) Slight Microcytosis Moderate Stomatocytes Few Sodium Level 138 136-145 mmol/L Potassium Level 3.7 3.5-5.1 mmol/L Chloride Level 105 98-107 mmol/L Carbon Dioxide Level 26 20-31 mmol/L Anion Gap 7 5-15 Blood Urea Nitrogen 10 9-23 mg/dL Creatinine 0.83 0.550-1.02 mg/dL Glomerular Filtration Rate Calc 90 >90 mL/min BUN/Creatinine Ratio 12.0 10.0-20.0 Serum Glucose 104 74-106 mg/dL Calcium Level 9.2 8.7-10.4 mg/dL Lipase 44 12-53 U/L Current Medications Medications (Trade) Dose Ordered Sig/[place] Route Start Time Stop Time Status Last Admin Clonidine HCl (Catapres Tablet) 0.2 mg ONCE ONCE PO 04/28/25 23:30 04/28/25 23:31 DC 04/28/25 23:40 Clonidine HCl (Catapres Tablet) 0.2 mg ONCE ONCE PO 04/29/25 02:15 04/29/25 02:16 DC 04/29/25 02:18 X-Ray, Labs, Meds, VS Comment All studies performed in the ED were evaluated by me personally. Urinalysis was pending at time of this note. Serum laboratories were remarkable for mild anemia. Patient care will be transferred to Dr. Juan for review of urine studies once returned. She will respond accordingly. Additionally, patient's blood pressure will be reduced to an acceptable zone prior to discharge. Time of 1ST Reevaluation: 02:53 Reevaluation 1ST: Improved Consultation: PCP, Cardiology Patient Education/Counseling: Diagnosis, Treatment Family Education/Counseling: Diagnosis, Treatment SEPSIS Sepsis Screen Date sepsis recognized/suspect: Apr 28, 2025 Time Sepsis recognized/suspect: 2311 Recent Procedure: No On Antibiotic Therapy: No Respiratory Rate >20: Yes Heart Rate >90: No Temp<36 C (96.8 F) or >38.3 C: No SBP <90 or MAP <65 mmHG: No New Acute Mental Status Change: No Is the patient on CPAP, BIPAP,: No Physician Orders Urinalysis (04/28/25 23:40) Drug Screen (04/28/25 23:40) Electrocardigram (04/28/25 23:40) Electrocardigram (04/29/25 02:23) Vital Signs Date Time Temp Pulse Resp B/P (MAP) Pulse Ox O2 Delivery O2 Flow Rate FiO2 04/29/25 02:21 98.4 83 16 182/114 (136) 100 98.4 04/29/25 02:18 182/114 04/29/25 00:44 162/110 (127) 04/28/25 23:40 216/132 04/28/25 23:08 98.1 74 22 216/132 100 98.1 Laboratory Tests Test 04/28/25 23:52 White Blood Count 8.7 10^3/uL (4.4-10.8) Medications Medications Dose Ordered Sig/[place] Route Start Time Stop Time Status Last Admin Dose Admin Clonidine HCl 0.2 mg ONCE ONCE PO 04/28/25 23:30 04/28/25 23:31 DC 04/28/25 23:40 Clonidine HCl 0.2 mg ONCE ONCE PO 04/29/25 02:15 04/29/25 02:16 DC 04/29/25 02:18 Departure 1 Departure Time of Disposition: 02:54 Impression: Primary Impression: Abdominal pain Additional Impression: Hypertensive urgency Disposition: 01 HOME / SELF CARE / HOMELESS Condition: Stable Additional Instructions: Advise utilizing medication as needed for symptomatic relief. Patient should follow up with the primary care provider for discussions related to what is currently uncontrolled hypertension. e-Prescriptions Simethicone (Simethicone) 80 Mg Chw 1 TAB PO Q8HR, #20 TAB Prov: RICHELLE WALSH PAC 04/29/25 Dicyclomine Hcl (BENTYL CAPSULE) 10 Mg Cp 1 CAP PO Q6HPRN, #20 CAP 0 Refills Prov: RICHELLE WALSH PAC 04/29/25 Clonidine Hydrochloride (Clonidine Hcl) 0.2 Mg Tab 1 TAB PO Q12HP PRN, #20 TAB 0 Refills To be used if systolic pressure is above 160 or diastolic pressure is above 90. Prov: RICHELLE WALSH PAC 04/29/25 Discharged With: Self, Friend Critical Care Note Critical Care Time?: No Stability Stability form required: No Heart Score Heart Score: Heart Score Response (Comments) Value History N/A 0 EKG N/A 0 Age N/A 0 Risk Factors N/A 0 Troponin N/A 0 Total 0 RICHELLE WALSH PAC Apr 29, 2025 02:57
[2025-04-29 03:14] LABS: Urine Protein, UAD 1+ (Negative)
[2025-04-29 03:28] LABS: Amphetamine Screen, Urine Pos (NEGATIVE); Barbiturate Scree,Urine Neg (NEGATIVE); Benzodiazephine Screen, Urine Neg (NEGATIVE); Cannabinoid Screen, Urine Pos (NEGATIVE); Cocaine Screen, Urine Neg (NEGATIVE); Opiate Scree,Urine Neg (NEGATIVE); Phencyclidine Screen, Urine Neg (NEGATIVE)
== END 2025-04-29 05:36 | disposition left against medical advice (07) ==
LOC: ER 23:07
DX: I16.0 Hypertensive urgency (principal); R10.9 Unspecified abdominal pain; J45.909 Unspecified asthma, uncomplicated; I10 Essential (primary) hypertension; F17.210 Nicotine dependence, cigarettes, uncomplicated; Z79.899 Other long term (current) drug therapy
CPT/HCPCS: 36415; 80048; 80307; 81001; 83690; 84484; 85025

== ENCOUNTER 2025-07-01 20:07 | Emergency (ER) | payer OTHER ==
[~2025-07-01] VITALS: Ht 162.6 cm; Wt 49.9 kg
[~2025-07-01 20:07] MED LIST changes: +CLON0.2T PO; +DICY10CA PO; +SIME80CH49 PO
[2025-07-01 20:08] VITALS: BP 186/130; PULSE 100; RESP 18; TEMP 98; O2SAT 98
--- NOTE | 2025-07-01 21:17 | ED.PDOC ---
GI ASSESSMENT HPI Comments 40 year old female who came to ER for abdominal pain. Patient states for the past 2 days she has been experiencing epigastric abdominal pain, sharp, constant nonradiating associated with a fever and nausea and vomiting. Patient states she had similar pain before but she could not recall what she was diagnosed with Chief Complaint: Abdominal Pain Time Seen by MD: 21:16 Primary Care Provider: UNKNOWN Reviewed Notes: Nurses Notes Allergies: Coded Allergies: NO KNOWN ALLERGIES (Unverified , 03/16/20) Home Meds Active Scripts Simethicone (Simethicone) 80 Mg Chw, 1 TAB PO Q8HR, #20 TAB Prov:RICHELLE WALSH PAC 04/29/25 Dicyclomine Hcl (BENTYL CAPSULE) 10 Mg Cp, 1 CAP PO Q6HPRN, #20 CAP 0 Refills Prov:RICHELLE WALSH PAC 04/29/25 Clonidine Hydrochloride (Clonidine Hcl) 0.2 Mg Tab, 1 TAB PO Q12HP PRN, #20 TAB 0 Refills To be used if systolic pressure is above 160 or diastolic pressure is above 90. Prov:RICHELLE WALSH PAC 04/29/25 Sulfamethoxazole W/Trimethopri (Trimethoprim/Sulfamethoxa) 1 Tab Tab, 1 TAB PO BID for 3 Days, #6 TAB Prov:BAKARI YEUNG RESIDENT 02/21/25 Hydrocodone-Acetaminophen (Hydrocodone Bitartrate/AC 10-325 mg) 1 Tab Tab, 1 TAB PO QID PRN for 7 Days, #28 TAB 0 Refills Prov:SIRENA LEAHY MD 02/21/25 Ferrous Sulfate (Ferrous Sulfate) 325 Mg Tab, 325 MG PO EOD for 30 Days, #30 TAB 1 Refill Prov:SIRENA LEAHY MD 02/21/25 Clindamycin Hcl (Clindamycin Hcl) 300 Mg Cap, 1 CAP PO TID for 7 Days, #21 CAP Prov:VINI ALBARRAN MD 03/12/23 Cephalexin (KEFLEX CAPSULE) 250 Mg Cp, 500 MG PO TID for 7 Days, #21 BOTTLE Prov:VINI ALBARRAN MD 03/12/23 Ondansetron (Zofran) 4 Mg Tab, 1 TAB PO Q6HR, #20 TAB Prov:JONNATHAN MORALES MD 03/19/20 Acetaminophen (Acetaminophen) 325 Mg Tab, 650 MG PO Q6HP PRN for 7 Days, #56 TAB Prov:JONNATHAN MORALES MD 03/19/20 Amoxicillin & Pot Clavulanate (Augmentin) 500 Mg Tab, 1 TAB PO BID, #14 TAB Prov:JONNATHAN MORALES MD 03/19/20 Reported Medications Benazepril Hcl (Benazepril Hcl) 10 Mg Tab, 10 MG PO DAILY for 30 Days, MG 02/19/25 Benazepril Hcl (Benazepril Hcl) 40 Mg Tab, 1 TAB PO DAILYPRN 03/17/20 Metoprolol Tartrate (LOPRESSOR TABLET) 50 Mg Tb, PO 03/17/20 Information Source: Patient Mode of Arrival: Ambulatory Past Medical History PAST MEDICAL HISTORY: Anxiety, Asthma, HTN, Kidney Stones, UTI'S 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 Family History Family History: Family hx of DM, Family hx of HTN Social History Smoker: Cigarettes, Less Than 1 Pack/Day Alcohol: Denies ETOH Use Drugs: Marijuana Lives In: Home Constitutional: reports: fever; denies: chills, diaphoresis, fatigue, malaise, sweats, weakness, others EENTM: denies: blurred vision, double vision, ear bleeding, ear discharge, ear drainage, ear pain, ear ringing, eye pain, eye redness, hearing loss, mouth pain, mouth swelling, nasal discharge, nose bleeding, nose congestion, nose pain, photophobia, tearing, throat pain, throat swelling, voice changes, others Respiratory: denies: cough, hemoptysis, orthopnea, SOB at rest, shortness of breath, SOB with excertion, stridor, wheezing, others Cardiovascular: denies: chest pain, dizzy spells, diaphoresis, Dyspnea on exertion, edema, irregular heart beat, left arm pain, lightheadedness, palpitations, PND, syncope, others Gastrointestinal: reports: abdominal pain, nausea, vomiting; denies: abdomen distended, blood streaked bowels, constipated, diarrhea, dysphagia, difficulty swallowing, hematemesis, melena, poor appetite, poor fluid intake, rectal bleeding, rectal pain, others Genitourinary: denies: abnormal vagina bleeding, burning, dyspareunia, dysuria, flank pain, frequency, hematuria, incontinence, pain, , vagina disc harge, urgency, others Neurological: denies: dizziness, fainting, headache, left sided numbness, left sided weakness, numbness, paresthesia, pre-existing deficit, right sided numbness, right sided weakness, seizure, speech problems, tingling, tremors, weakness, others Musculoskeletal: denies: back pain, gout, joint pain, joint swelling, muscle pain, muscle stiffness, neck pain, others Integumetry: denies: bruises, change in color, change in hair/nails, dryness, laceration, lesions, lumps, rash, wounds, others Allergic/Immunocompromised: denies: Difficulty Healing, Frequent Infections, Hives, Itching, others Hematologic/Lymphatic: denies: anemia, blood clots, easy bleeding, easy bruising, swollen glands, others Endocrine: denies: excessive hunger, excessive sweating, excessive thirst, excessive urination, flushing, intolerance to cold, intolerance to heat, unexplained weight gain, unexplained weight loss, others Psychiatric: denies: anxiety, bipolar disorder, depression, hopeless, panic disorder, schizophrenia, sleepless, suicidal, others Physical Exam General Appearance: No Apparent Distress, Normal HEENT: Normal ENT Inspection, Pharynx Normal, TMs Normal Neck: Full Range of Motion, Non-Tender, Normal, Normal Inspection Respiratory: Chest Non-Tender, Lungs Clear, No Accessory Muscle Use, No Respiratory Distress, Normal Breath Sounds Cardiovascular: No Edema, No JVD, No Murmur, No Gallop, Normal Peripheral Pulses, Regular Rate/Rhythm Breast Exam: Deferred Gastrointestinal: No Organomegaly, Non Tender, No Pulsatile Mass, Normal Bowel Sounds, Soft Genitalia: Deferred Pelvic: Deferred Rectal: Deferred Extremities: No calf tenderness, Normal capillary refill, Normal inspection, Normal range of motion, Non-tender, No pedal edema Musculoskeletal : Apperance: Normal Neurologic: Alert, fireproof door assembler II-XII nml as Tested, No Motor Deficits, Normal Affect, Normal Mood, No Sensory Deficits Cerebellar Function: Normal Reflexes: Normal Skin: Dry, Normal Color, Warm Lymphatic: No Adenopathy Was a procedure done? Was a procedure done?: No GI differential Dx Differential Diagnosis: Cholecystitis, Diverticular disease, Gastritis/PUD, Gastroenteritis, Pancreatitis X-Ray, Labs, Meds, VS Vital Signs Date Time Temp Pulse Resp B/P (MAP) Pulse Ox O2 Delivery O2 Flow Rate FiO2 07/01/25 20:08 98.0 100 18 186/130 98 98.0 Lab Test 07/01/25 21:25 Range/Units White Blood Count 7.7 4.4-10.8 10^3/uL Red Blood Count 4.08 4.0-5.20 10^6/uL Hemoglobin 7.7 L 12.2-16.2 g/dL Hematocrit 26.6 L 36.0-46.0 % Mean Corpuscular Volume 65.1 L 80.0-100.0 fL Mean Corpuscular Hemoglobin 18.8 L 28.0-32.0 pg Mean Corpuscular Hemoglobin Concent 28.9 L 32.0-36.0 g/dL Red Cell Distribution Width 21.8 H 11.8-14.3 % Platelet Count 289 140-450 10^3/uL Mean Platelet Volume 9.0 6.9-10.8 fL Neutrophils (%) (Auto) 64.0 37.0-80.0 % Lymphocytes (%) (Auto) 17.4 10.0-50.0 % Monocytes (%) (Auto) 8.2 0.0-12.0 % Eosinophils (%) (Auto) 9.0 H 0.0-7.0 % Basophils (%) (Auto) 1.4 0.0-2.0 % Neutrophils # (Auto) 4.9 1.6-8.6 10 ^3/uL Lymphocytes # (Auto) 1.3 0.4-5.4 10 ^3/uL Monocytes # (Auto) 0.6 0-1.3 10 ^3/uL Eosinophils # (Auto) 0.7 0-0.8 10 ^3/uL Basophils # (Auto) 0.1 0-0.2 10 ^3/uL Nucleated Red Blood Cells 0.1 % Sodium Level 140 136-145 mmol/L Potassium Level 3.8 3.5-5.1 mmol/L Chloride Level 107 98-107 mmol/L Carbon Dioxide Level 24 20-31 mmol/L Anion Gap 9 5-15 Blood Urea Nitrogen 12 9-23 mg/dL Creatinine 0.83 0.550-1.02 mg/dL Glomerular Filtration Rate Calc 90 >90 mL/min BUN/Creatinine Ratio 14.5 10.0-20.0 Serum Glucose 111 H 74-106 mg/dL Calcium Level 9.3 8.7-10.4 mg/dL Total Bilirubin 0.2 0.2-1.0 mg/dL Aspartate Amino Transferase (AST) 19 13-40 U/L Alanine Aminotransferase (ALT) 12 7-40 U/L Alkaline Phosphatase 80 46-116 U/L Troponin I High Sensitivity 4 </=34 ng/L Total Protein 8.2 5.7-8.2 g/dL Albumin 4.5 3.2-4.8 g/dL Lipase 32 12-53 U/L Time of 1ST Reevaluation: 21:14 Reevaluation 1ST: Unchanged Patient Education/Counseling: Diagnosis, Treatment Family Education/Counseling: No Family Present SEPSIS Sepsis Screen Date sepsis recognized/suspect: Jul 01, 2025 Time Sepsis recognized/suspect: 2009 Recent Procedure: No On Antibiotic Therapy: No Respiratory Rate >20: No Heart Rate >90: Yes Temp<36 C (96.8 F) or >38.3 C: No SBP <90 or MAP <65 mmHG: No New Acute Mental Status Change: No Is the patient on CPAP, BIPAP,: No Physician Orders Urinalysis (07/01/25 20:20) Electrocardigram (07/01/25 20:20) Test, Urine (07/01/25 22:07) Vital Signs Date Time Temp Pulse Resp B/P (MAP) Pulse Ox O2 Delivery O2 Flow Rate FiO2 07/01/25 20:08 98.0 100 18 186/130 98 98.0 Laboratory Tests Test 07/01/25 21:25 White Blood Count 7.7 10^3/uL (4.4-10.8) Departure 1 Departure Time of Disposition: 23:00 Impression: Primary Impression: Abdominal pain Disposition: HOME / SELF CARE / HOMELESS Condition: Stable Discharged With: Self Critical Care Note Critical Care Time?: No Stability Stability form required: No Heart Score Heart Score: Heart Score Response (Comments) Value History N/A 0 EKG N/A 0 Age N/A 0 Risk Factors N/A 0 Troponin N/A 0 Total 0 I personally scribed for CARLA AWAD MD ([email or web address]) on 07/01/25 at 21:16. Electronically submitted by Cr Jung ([facility]). CARLA AWAD MD Jul 01, 2025 21:16
[2025-07-01 21:38] LABS: Hemoglobin 7.7 g/dL (12.2-16.2); Nucleated Red Blood Cells % 0.1 %
[2025-07-01 21:40] LABS: Hematocrit 26.6 % (36.0-46.0); Mean Corpuscular Hemoglobin 18.8 pg (28.0-32.0); Mean Corpuscular Volume 65.1 fL (80.0-100.0)
[2025-07-01 22:07] LABS: Alanine Aminotransferase 12 U/L (7-40); Albumin 4.5 g/dL (3.2-4.8); Alkaline Phosphatase 80 U/L (46-116); Anion Gap 9 (5-15); BUN/Creatinine Ratio 14.5 (10.0-20.0); Blood Urea Nitrogen 12 mg/dL (9-23); Calcium 9.3 mg/dL (8.7-10.4); Carbon Dioxide 24 mmol/L (20-31); Chloride 107 mmol/L (98-107); Lipase 32 U/L (12-53); Potassium 3.8 mmol/L (3.5-5.1); Sodium 140 mmol/L (136-145)
[2025-07-01 22:20] LABS: Bilirubin, Total 0.2 mg/dL (0.2-1.0); Glucose 111 mg/dL (74-106); Total Protein 8.2 g/dL (5.7-8.2)
[2025-07-01] MEDS: SODIUM CHLORIDE 0.9% 500 ML IV ONE (23:30)
== END 2025-07-01 23:37 | disposition left against medical advice (07) ==
LOC: ER 20:07
DX: R10.13 Epigastric pain (principal); I10 Essential (primary) hypertension; J45.909 Unspecified asthma, uncomplicated; F17.210 Nicotine dependence, cigarettes, uncomplicated; F12.90 Cannabis use, unspecified, uncomplicated
CPT/HCPCS: 36415; 80053; 83690; 84484; 85025

== ENCOUNTER 2025-07-27 13:07 | Inpatient (IN) | payer OTHER ==
[~2025-07-27] VITALS: Ht 170.2 cm; Wt 52.1 kg
--- NOTE | 2025-07-27 13:38 | ED.PDOC ---
General HPI Comments 40 y/o F, BIBA, with PMHx of kidney stones, anxiety, and HTN presents to the ED for CC of flank pain. EMS reports, patient is coming from home where she c/o right-sided flank pain onset, today (07/27/25). At this time patient rates pain a 10/10 on the pain scale. Patient denies fever, chills, sweats, vaginal discharge, frequency, or hematuria. Chief Complaint: Flank Pain Time Seen by MD: 13:30 Primary Care Provider: UNKNOWN Reviewed notes: Nurses Notes, Metal Tile Lather Notes, Medications, Allergies Allergies: Coded Allergies: NO KNOWN ALLERGIES (Unverified , 03/16/20) Home Meds Active Scripts Simethicone (Simethicone) 80 Mg Chw, 1 TAB PO Q8HR, #20 TAB Prov:RICHELLE WALSH PAC 04/29/25 Dicyclomine Hcl (BENTYL CAPSULE) 10 Mg Cp, 1 CAP PO Q6HPRN, #20 CAP 0 Refills Prov:RICHELLE WALSH PAC 04/29/25 Clonidine Hydrochloride (Clonidine Hcl) 0.2 Mg Tab, 1 TAB PO Q12HP PRN, #20 TAB 0 Refills To be used if systolic pressure is above 160 or diastolic pressure is above 90. Prov:RICHELLE WALSH PAC 04/29/25 Sulfamethoxazole W/Trimethopri (Trimethoprim/Sulfamethoxa) 1 Tab Tab, 1 TAB PO BID for 3 Days, #6 TAB Prov:BAKARI YEUNG RESIDENT 02/21/25 Hydrocodone-Acetaminophen (Hydrocodone Bitartrate/AC 10-325 mg) 1 Tab Tab, 1 TAB PO QID PRN for 7 Days, #28 TAB 0 Refills Prov:SIRENA LEAHY MD 02/21/25 Ferrous Sulfate (Ferrous Sulfate) 325 Mg Tab, 325 MG PO EOD for 30 Days, #30 TAB 1 Refill Prov:SIRENA LEAHY MD 02/21/25 Clindamycin Hcl (Clindamycin Hcl) 300 Mg Cap, 1 CAP PO TID for 7 Days, #21 CAP Prov:VINI ALBARRAN MD 03/12/23 Cephalexin (KEFLEX CAPSULE) 250 Mg Cp, 500 MG PO TID for 7 Days, #21 BOTTLE Prov:VINI ALBARRAN MD 03/12/23 Ondansetron (Zofran) 4 Mg Tab, 1 TAB PO Q6HR, #20 TAB Prov:JONNATHAN MORALES MD 03/19/20 Acetaminophen (Acetaminophen) 325 Mg Tab, 650 MG PO Q6HP PRN for 7 Days, #56 TAB Prov:JONNATHAN MORALES MD 03/19/20 Amoxicillin & Pot Clavulanate (Augmentin) 500 Mg Tab, 1 TAB PO BID, #14 TAB Prov:JONNATHAN MORALES MD 03/19/20 Reported Medications Benazepril Hcl (Benazepril Hcl) 10 Mg Tab, 10 MG PO DAILY for 30 Days, MG 02/19/25 Benazepril Hcl (Benazepril Hcl) 40 Mg Tab, 1 TAB PO DAILYPRN 03/17/20 Metoprolol Tartrate (LOPRESSOR TABLET) 50 Mg Tb, PO 03/17/20 Information Source: Patient, Emergency Med Personnel Mode of Arrival: EMS Severity: Moderate Timing: Days Duration: Since onset Prehospital treatment: None Onset: Spontaneous History of: Kidney stone Location: (R) Flank associated signs and symptoms: Flank Pain Past Medical History PAST MEDICAL HISTORY: Anxiety, Asthma, HTN, Kidney Stones, UTI'S 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 Family History Family History: Family hx of DM, Family hx of HTN Social History Smoker: Cigarettes, Less Than 1 Pack/Day Alcohol: Denies ETOH Use Drugs: Marijuana Lives In: Home Constitutional: denies: chills, diaphoresis, fatigue, fever, malaise, sweats, weakness, others EENTM: denies: blurred vision, double vision, ear bleeding, ear discharge, ear drainage, ear pain, ear ringing, eye pain, eye redness, hearing loss, mouth pain, mouth swelling, nasal discharge, nose bleeding, nose congestion, nose pain, photophobia, tearing, throat pain, throat swelling, voice changes, others Respiratory: denies: cough, hemoptysis, orthopnea, SOB at rest, shortness of breath, SOB with excertion, stridor, wheezing, others Cardiovascular: denies: chest pain, dizzy spells, diaphoresis, Dyspnea on exertion, edema, irregular heart beat, left arm pain, lightheadedness, palpitations, PND, syncope, others Gastrointestinal: denies: abdomen distended, abdominal pain, blood streaked bowels, constipated, diarrhea, dysphagia, difficulty swallowing, hematemesis, melena, nausea, poor appetite, poor fluid intake, rectal bleeding, rectal pain, vomiting, others Genitourinary: reports: flank pain; denies: abnormal vagina bleeding, burning, dyspareunia, dysuria, frequency, hematuria, incontinence, pain, , vagina discharge, urgency, others Neurological: denies: dizziness, fainting, headache, left sided numbness, left sided weakness, numbness, paresthesia, pre-existing deficit, right sided numbness, right sided weakness, seizure, speech problems, tingling, tremors, weakness, others Musculoskeletal: denies: back pain, gout, joint pain, joint swelling, muscle pain, muscle stiffness, neck pain, others Integumetry: denies: bruises, change in color, change in hair/nails, dryness, laceration, lesions, lumps, rash, wounds, others Allergic/Immunocompromised: denies: Difficulty Healing, Frequent Infections, Hives, Itching, others Hematologic/Lymphatic: denies: anemia, blood clots, easy bleeding, easy bruising, swollen glands, others Endocrine: denies: excessive hunger, excessive sweating, excessive thirst, excessive urination, flushing, intolerance to cold, intolerance to heat, unexplained weight gain, unexplained weight loss, others Psychiatric: denies: anxiety, bipolar disorder, depression, hopeless, panic disorder, schizophrenia, sleepless, suicidal, others All Other Systems: Reviewed and Negative Physical Exam General Appearance: Moderate Distress, Thin HEENT: Normal ENT Inspection, Pharynx Normal, TMs Normal Neck: Full Range of Motion, Non-Tender, Normal, Normal Inspection Respiratory: Chest Non-Tender, Lungs Clear, No Accessory Muscle Use, No Respiratory Distress, Normal Breath Sounds Cardiovascular: No Edema, No JVD, No Murmur, No Gallop, Normal Peripheral Pulses, Regular Rate/Rhythm Breast Exam: Deferred Gastrointestinal: No Organomegaly, Non Tender, No Pulsatile Mass, Normal Bowel Sounds, Soft Genitalia: Deferred Pelvic: Deferred Rectal: Deferred Extremities: No calf tenderness, Normal capillary refill, Normal inspection, Normal range of motion, Non-tender, No pedal edema Musculoskeletal : Apperance: Normal Neurologic: Alert, manager income tax II-XII nml as Tested, No Motor Deficits, Normal Affect, Normal Mood, No Sensory Deficits Cerebellar Function: NOT DONE Reflexes: NOT DONE Skin: Dry, Normal Color, Warm Peripheral Pulses: 3+ Radial (R), 3+ Radial (L) Lymphatic: No Adenopathy Was a procedure done? Was a procedure done?: No Differential Diagnosis Kidney stone (Female): Pyelonephritis, Strain, Urinary obstruction, Urolithiasis X-Ray, Labs, Meds, VS Vital Signs Date Time Temp Pulse Resp B/P (MAP) Pulse Ox O2 Delivery O2 Flow Rate FiO2 07/27/25 14:18 98.5 85 20 179/120 100 98.5 07/27/25 14:00 77 22 99 Room Air* 0 21 07/27/25 14:00 98.8 77 22 152/110 (124) 99 98.8 07/27/25 13:22 92 Lab Test 07/27/25 13:53 Range/Units White Blood Count 6.6 4.4-10.8 10^3/uL Red Blood Count 4.28 4.0-5.20 10^6/uL Hemoglobin 7.7 L 12.2-16.2 g/dL Hematocrit 26.8 L 36.0-46.0 % Mean Corpuscular Volume 62.7 L 80.0-100.0 fL Mean Corpuscular Hemoglobin 17.9 L 28.0-32.0 pg Mean Corpuscular Hemoglobin Concent 28.6 L 32.0-36.0 g/dL Red Cell Distribution Width 23.3 H 11.8-14.3 % Platelet Count 266 140-450 10^3/uL Mean Platelet Volume 8.9 6.9-10.8 fL Neutrophils (%) (Auto) 64.7 37.0-80.0 % Lymphocytes (%) (Auto) 14.9 10.0-50.0 % Monocytes (%) (Auto) 8.7 0.0-12.0 % Eosinophils (%) (Auto) 10.6 H 0.0-7.0 % Basophils (%) (Auto) 1.1 0.0-2.0 % Neutrophils # (Auto) 4.3 1.6-8.6 10 ^3/uL Lymphocytes # (Auto) 1.0 0.4-5.4 10 ^3/uL Monocytes # (Auto) 0.6 0-1.3 10 ^3/uL Eosinophils # (Auto) 0.7 0-0.8 10 ^3/uL Basophils # (Auto) 0.1 0-0.2 10 ^3/uL Nucleated Red Blood Cells 0.0 % Sodium Level 139 136-145 mmol/L Potassium Level 3.5 3.5-5.1 mmol/L Chloride Level 107 98-107 mmol/L Carbon Dioxide Level 25 20-31 mmol/L Anion Gap 7 5-15 Blood Urea Nitrogen 9 9-23 mg/dL Creatinine 0.95 0.550-1.02 mg/dL Glomerular Filtration Rate Calc 77 >90 mL/min BUN/Creatinine Ratio 9.5 L 10.0-20.0 Serum Glucose 108 H 74-106 mg/dL Calcium Level 9.6 8.7-10.4 mg/dL Current Medications Medications (Trade) Dose Ordered Sig/Stanford Route Start Time Stop Time Status Last Admin Ondansetron HCl (Zofran) 4 mg ONCE ONCE IV 07/27/25 13:45 07/27/25 13:46 DC 07/27/25 14:24 Sodium Chloride 1,000 ml @ 1,000 mls/hr Q1H ONCE IVB 07/27/25 13:45 07/27/25 14:44 DC 07/27/25 14:24 Ketorolac Tromethamine (Toradol Injection) 30 mg ONCE ONCE IV 07/27/25 13:45 07/27/25 13:46 DC 07/27/25 14:24 Patient alert. Complaining of flank pain. She is thin. Vitals stable. WBC within normal limits. Hemoglobin is low. She does not take care of herself. Establish intravenous access. Was given fluids. Was given pain medication. Was given Zofran. Explained to the patient. Continue monitoring. [address] [address] Ph: [phone] DIAGNOSTIC IMAGING Diagnostic Imaging Report : [id number] Signed PATIENT: GARETT BAL ACCT: [id number] UNIT: [id number] : 1985 LOC: ER ROOM / BED: / AGE / SEX: 40 / F ADM STATUS: REG ER SERVICE 1341 ORDERING PHYSICIAN: VINI ALBARRAN MD PROCEDURE(s): ABPL - CT AB PEL WO CON-NO ORAL OR IV REASON: stone ORDER NUMBER(s): [id number], ACCESSION NUMBER(s): [id number] CLINICAL HISTORY: stone TECHNIQUE: CT of the abdomen and pelvis was performed without intravenous contrast. This exam was performed according to our departmental dose opti mization program. Up-to-date CT equipment and radiation dose reduction techniques are utilized as appropriate. WID: COMPARISON: CT CT AB PEL WO CON-NO ORAL OR IV on DOS: 03/14/25, CT CT AB PEL WO CON-NO ORAL OR IV on DOS: 02/07/23, CT ABD PELVIS WO CONTRAST on DOS: 04/19/20 FINDINGS: Minimal subsegmental atelectasis within the left lower lung base. The liver, spleen, pancreas, gallbladder, and adrenal glands are within normal limits. Staghorn calculus measuring 4.5 x 4.2 cm occupying the entirety of the right renal collecting system with associated severe hydronephrosis with cortical thinning with multiple loculated areas of fluid circumferentially within the kidney suspicious for xanthogranulomatous. The left kidney is within normal limits. There is fluid within the cervix. The uterus is Under mattson unremarkable. The stomach, small bowel, and imaged colon are within normal limits. The appendix is not visualized. The bones are unremarkable. IMPRESSION: 4.5 cm right staghorn calculus occupying the entirety of the right renal collecting system with associated xanthogranulomatous pyelonephritis with superimposed severe hydronephrosis difficult to evaluate. Fluid filled cervix, nonspecific. ATED BY: JOSUÉ HINSON MD DICTATED DATE/TIME: 07/27/251440 SIGNED BY: JOSUÉ HINSON MD SIGNED DATE/TIME: 07/27/251440 CC: Time of 1ST Reevaluation: 14:00 Reevaluation 1ST: Unchanged Patient Education/Counseling: Diagnosis, Treatment Family Education/Counseling: No Family Present SEPSIS Sepsis Screen Physician Orders Urinalysis (07/27/25 13:41) Ct Ab Pel Wo Con-No Oral Or Iv (07/27/25 13:41) Electrocardigram (07/27/25 14:42) Vital Signs Date Time Temp Pulse Resp B/P (MAP) Pulse Ox O2 Delivery O2 Flow Rate FiO2 07/27/25 14:18 98.5 85 20 179/120 100 98.5 07/27/25 14:00 77 22 99 Room Air* 0 21 07/27/25 14:00 98.8 77 22 152/110 (124) 99 98.8 07/27/25 13:22 92 Laboratory Tests Test 07/27/25 13:53 White Blood Count 6.6 10^3/uL (4.4-10.8) Medications Medications Dose Ordered Sig/Stanford Route Start Time Stop Time Status Last Admin Dose Admin Ketorolac Tromethamine 30 mg ONCE ONCE IV 07/27/25 13:45 07/27/25 13:46 DC 07/27/25 14:24 Ondansetron HCl 4 mg ONCE ONCE IV 07/27/25 13:45 07/27/25 13:46 DC 07/27/25 14:24 Sodium Chloride 1,000 ml @ 1,000 mls/hr Q1H ONCE IVB 07/27/25 13:45 07/27/25 14:44 DC 07/27/25 14:24 Departure 1 Departure Time of Disposition: 14:33 Impression: Primary Impression: Failure to thrive Qualified Codes: R62.7 - Adult failure to thrive Additional Impressions: Intractable nausea and vomiting Flank pain Qualified Codes: R10.A1 - Flank pain, right side Disposition: ADMITTED INPATIENT Admit to: Med Surg Condition: Guarded Critical Care Note Critical Care Time?: No Stability Stability form required: No Heart Score Heart Score: Heart Score Response (Comments) Value History N/A 0 EKG N/A 0 Age N/A 0 Risk Factors N/A 0 Troponin N/A 0 Total 0 I personally scribed for VINI ALBARRAN MD ([email or web address]) on 07/27/25 at 13:38. Electronically submitted by Genevieve Morales ([email or web address]). I personally scribed for VINI ALBARRAN MD ([email or web address]) on 07/27/25 at 15:29. Electronically submitted by Genevieve Morales ([email or web address]). VINI ALBARRAN MD Jul 27, 2025 13:38
[2025-07-27 14:00] VITALS: PULSE 77; RESP 22; O2SAT 99
[2025-07-27 14:08] LABS: Hemoglobin 7.7 g/dL (12.2-16.2); Mean Corpuscular Hemoglobin 17.9 pg (28.0-32.0)
[2025-07-27 14:10] LABS: Hematocrit 26.8 % (36.0-46.0); Mean Corpuscular Volume 62.7 fL (80.0-100.0); Nucleated Red Blood Cells % 0.0 %
[2025-07-27 14:11] LABS: Chloride 107 mmol/L (98-107); Potassium 3.5 mmol/L (3.5-5.1); Sodium 139 mmol/L (136-145)
[2025-07-27 14:12] LABS: Anion Gap 7 (5-15); Carbon Dioxide 25 mmol/L (20-31)
[2025-07-27 14:13] LABS: Calcium 9.6 mg/dL (8.7-10.4)
[2025-07-27 14:17] LABS: BUN/Creatinine Ratio 9.5 (10.0-20.0); Blood Urea Nitrogen 9 mg/dL (9-23)
[2025-07-27 14:20] LABS: Glucose 108 mg/dL (74-106)
[2025-07-27] MEDS: SODIUM CHLORIDE 0.9% 1,000 ML IVB ONE (14:24)
[2025-07-27] MEDS: KETOROLAC TROMETH 30 MG/ML 1ML VIAL IV ONE (14:24)
[2025-07-27] MEDS: ONDANSETRON HCL 4 MG/2 ML VIAL IV ONE (14:24)
--- NOTE | 2025-07-27 14:41 | DVH ---
CLINICAL HISTORY: stone TECHNIQUE: CT of the abdomen and pelvis was performed without intravenous contrast. This exam was performed according to our departmental dose optimization program. Up-to-date CT equipment and radiation dose reduction techniques are utilized as appropriate. WID: COMPARISON: CT CT AB PEL WO CON-NO ORAL OR IV on DOS: 03/14/25, CT CT AB PEL WO CON-NO ORAL OR IV on DOS: 02/07/23, CT ABD PELVIS WO CONTRAST on DOS: 04/19/20 FINDINGS: Minimal subsegmental atelectasis within the left lower lung base. The liver, spleen, pancreas, gallbladder, and adrenal glands are within normal limits. Staghorn calculus measuring 4.5 x 4.2 cm occupying the entirety of the right renal collecting system with associated severe hydronephrosis with cortical thinning with multiple loculated areas of fluid circumferentially within the kidney suspicious for xanthogranulomatous. The left kidney is within normal limits. There is fluid within the cervix. The uterus is Under mattson unremarkable. The stomach, small bowel, and imaged colon are within normal limits. The appendix is not visualized. The bones are unremarkable. IMPRESSION: 4.5 cm right staghorn calculus occupying the entirety of the right renal collecting system with associated xanthogranulomatous pyelonephritis with superimposed severe hydronephrosis difficult to evaluate. Fluid filled cervix, nonspecific.
[2025-07-27] MEDS ORDERED: VANCOMYCIN PER PHARMACY 0 MG IV SCH (16:30)
[2025-07-27] MEDS ORDERED: ACETAMINOPHEN 325 MG TAB PO PRN (16:30)
--- NOTE | 2025-07-27 16:45 | DVHHP2 ---
History of Present Illness Reason for Visit: Right flank pain History of Present Illness 40-year-old female with past medical history of kidney stones, hypertension, asthma, recurrent UTI, anxiety, polysubstance abuse, and medical noncompliance, presents to the ED with complaint of acute right flank pain radiating to the mid abdomen, associated with nausea and vomiting starting today. Patient denies fever, chills, dysuria, urinary frequency/urgency. Reports she is currently on her menstrual period. Past Medical History As stated in HPI Past Surgical History Family History Reviewed, non-contributory to the management of this case. Past Social History Admits to marijuana use Review of Systems Constitutional: Yes: Malaise; No: Fever, Chills, Sweats, Weakness, Other Eyes: No: Pain, Vision change, Conjunctivae inflammation, Eyelid inflammation, Other, Redness ENT: No: Ear pain, Ear discharge, Nose pain, Nose discharge, Nose congestion, Mouth pain, Mouth swelling, Throat pain, Throat swelling, Other Respiratory: No: Cough, Dry, Shortness of breath, SOB with excertion, Wheezing, Hemoptysis, Pleuritic Pain, Sputum, Wheezing, Other Cardiovascular: No: Chest Pain, Palpitations, Orthopnea, Paroxysmal Noc. Dyspnea, Edema, Lt Headedness, Other Gastrointestinal: Nausea, Vomiting, Abdominal Pain; No: Diarrhea, Constipation, Melena, Hematochezia, Other Genitourinary: No Dysuria, No Frequency, No Incontinence, No Hematuria, No Retention; Other (Right flank pain, kidney stones) Musculoskeletal: No: other, neck pain, shoulder pain, arm pain, back pain, hand pain, leg pain, foot pain Skin: No: Rash, Lesions, Jaundice, Bruising, Other Neurological: No: Weakness, Numbness, Incoordination, Change in speech, Confusion, Seizures, Other Allergies: Coded Allergies: NO KNOWN ALLERGIES (Unverified , 03/16/20) Exam Vital Signs Vital Signs Date Time Temp Pulse Resp B/P (MAP) Pulse Ox O2 Delivery O2 Flow Rate FiO2 07/27/25 14:18 98.5 85 20 179/120 100 98.5 07/27/25 14:00 Room Air* 0 21 General Appearance: Alert, Oriented X3, Cooperative, mild distress HEENT: Atraumatic, PERRLA, EOMI Respiratory: Clear to auscultation, Normal air movement Cardiovascular: Regular rate, Normal S1 Abdominal: Normal bowel sounds, Soft, Other (Right CVA tenderness) Extremities: No clubbing, No cyanosis, No edema Skin: No rashes, No breakdown Neuro: Normal gait Psych/Mental Status: Mental status NL Labs/Xrays Labs Test 07/27/25 13:53 07/27/25 13:35 Range/Units White Blood Count 6.6 4.4-10.8 10^3/uL Red Blood Count 4.28 4.0-5.20 10^6/uL Hemoglobin 7.7 L 12.2-16.2 g/dL Hematocrit 26.8 L 36.0-46.0 % Mean Corpuscular Volume 62.7 L 80.0-100.0 fL Mean Corpuscular Hemoglobin 17.9 L 28.0-32.0 pg Mean Corpuscular Hemoglobin Concent 28.6 L 32.0-36.0 g/dL Red Cell Distribution Width 23.3 H 11.8-14.3 % Platelet Count 266 140-450 10^3/uL Mean Platelet Volume 8.9 6.9-10.8 fL Neutrophils (%) (Auto) 64.7 37.0-80.0 % Lymphocytes (%) (Auto) 14.9 10.0-50.0 % Monocytes (%) (Auto) 8.7 0.0-12.0 % Eosinophils (%) (Auto) 10.6 H 0.0-7.0 % Basophils (%) (Auto) 1.1 0.0-2.0 % Neutrophils # (Auto) 4.3 1.6-8.6 10 ^3/uL Lymphocytes # (Auto) 1.0 0.4-5.4 10 ^3/uL Monocytes # (Auto) 0.6 0-1.3 10 ^3/uL Eosinophils # (Auto) 0.7 0-0.8 10 ^3/uL Basophils # (Auto) 0.1 0-0.2 10 ^3/uL Nucleated Red Blood Cells 0.0 % Sodium Level 139 136-145 mmol/L Potassium Level 3.5 3.5-5.1 mmol/L Chloride Level 107 98-107 mmol/L Carbon Dioxide Level 25 20-31 mmol/L Anion Gap 7 5-15 Blood Urea Nitrogen 9 9-23 mg/dL Creatinine 0.95 0.550-1.02 mg/dL Glomerular Filtration Rate Calc 77 >90 mL/min BUN/Creatinine Ratio 9.5 L 10.0-20.0 Serum Glucose 108 H 74-106 mg/dL Calcium Level 9.6 8.7-10.4 mg/dL PROCEDURE(s): ABPL - CT AB PEL WO CON-NO ORAL OR IV REASON: stone ORDER NUMBER(s): [id number], ACCESSION NUMBER(s): [id number] CLINICAL HISTORY: stone TECHNIQUE: CT of the abdomen and pelvis was performed without intravenous contrast. This exam was performed according to our departmental dose optimization program. Up-to-date CT equipment and radiation dose reduction techniques are utilized as appropriate. WID: COMPARISON: CT CT AB PEL WO CON-NO ORAL OR IV on DOS: 03/14/25, CT CT AB PEL WO CON-NO ORAL OR IV on DOS: 02/07/23, CT ABD PELVIS WO CONTRAST on DOS: 04/19/20 FINDINGS: Minimal subsegmental atelectasis within the left lower lung base. The liver, spleen, pancreas, gallbladder, and adrenal glands are within normal limits. Staghorn calculus measuring 4.5 x 4.2 cm occupying the entirety of the right renal collecting system with associated severe hydronephrosis with cortical thinning with multiple loculated areas of fluid circumferentially within the kidney suspicious for xanthogranulomatous. The left kidney is within normal limits. There is fluid within the cervix. The uterus is Under mattson unremarkable. The stomach, small bowel, and imaged colon are within normal limits. The appendix is not visualized. The bones are unremarkable. IMPRESSION: 4.5 cm right staghorn calculus occupying the entirety of the right renal collecting system with associated xanthogranulomatous pyelonephritis with superimposed severe hydronephrosis difficult to evaluate. Fluid filled cervix, nonspecific. SEPSIS Sepsis Screen Date sepsis recognized/suspect: Jul 27, 2025 Time Sepsis recognized/suspect: 1314 Recent Procedure: No On Antibiotic Therapy: No Respiratory Rate >20: No Heart Rate >90: No Temp<36 C (96.8 F) or >38.3 C: No SBP <90 or MAP <65 mmHG: No New Acute Mental Status Change: No Is the patient on CPAP, BIPAP,: No Physician Orders Urinalysis (07/27/25 13:41) Ct Ab Pel Wo Con-No Oral Or Iv (07/27/25 13:41) Electrocardigram (07/27/25 14:42) Communication Order (07/27/25 15:36) Admit (07/27/25 16:21) Code Status (07/27/25 16:21) 0.9% Ns 1000 Ml (07/27/25 16:30) Ondansetron Hcl (Zofran) (07/27/25 16:30) Complete Blood Count (07/28/25 04:00) Comprehensive Metabolic Panel (07/28/25 04:00) Condition: Fair (07/27/25 16:21) Acetaminophen Tablet (Tylenol Tablet) (07/27/25 16:30) Morphine Sulfate Injection (07/27/25 16:30) Cefepime 1 Gm (07/27/25 16:30) Vancomycin (07/27/25 16:30) Ketorolac Injection (Toradol Injection) (07/27/25 16:30) * Urology Consult (07/27/25 16:21) Lactic Acid W/ Reflex Order (07/27/25 16:21) Urine Bacterial Culture (07/27/25 16:21) Blood Culture (07/27/25 16:21) Kidney (07/27/25 16:21) Npo Except For Medications (07/27/25 16:21) Npo (Nothing By Mouth) Diet (07/27/25 Dinner) Communication Order (07/27/25 16:21) Nicotine 7mg/24hr (Nicoderm 7mg/24hr) (07/28/25 10:00) Nicotine 7mg/24hr (Nicoderm 7mg/24hr) (07/27/25 16:30) Vital Signs Date Time Temp Pulse Resp B/P (MAP) Pulse Ox O2 Delivery O2 Flow Rate FiO2 07/27/25 14:18 98.5 85 20 179/120 100 98.5 07/27/25 14:00 77 22 99 Room Air* 0 21 07/27/25 14:00 98.8 77 22 152/110 (124) 99 98.8 07/27/25 13:22 92 Laboratory Tests Test 07/27/25 13:53 White Blood Count 6.6 10^3/uL (4.4-10.8) Medications Medications Dose Ordered Sig/Stanford Route Start Time Stop Time Status Last Admin Dose Admin Ketorolac Tromethamine 30 mg ONCE ONCE IV 07/27/25 13:45 07/27/25 13:46 DC 07/27/25 14:24 30 MG Ondansetron HCl 4 mg ONCE ONCE IV 07/27/25 13:45 07/27/25 13:46 DC 07/27/25 14:24 4 MG Sodium Chloride 1,000 ml @ 1,000 mls/hr Q1H ONCE IVB 07/27/25 13:45 07/27/25 14:44 DC 07/27/25 14:24 1,000 MLS/HR Assessment/Plan Assessment/Plan # right flank pain with possible obstructive pyelonephritis # acute complicated UTI # Staghorn calculus Admit to telemetry unit Empiric antibiotic for possible obstructive pyelonephritis Ultrasound of the kidneys IV fluid for hydration Pain control with ketorolac Antiemetics Monitor urine output Strict I&O Urgent Urology consult Keep patient NPO until seen by urologist # hypertension Antihypertensive medication Monitor BP # polysubstance abuse Nicotine patch Smoking cessation counseled Marijuana use counseled # history of medical noncompliance Counseled on the importance of compliance with medical treatment # anxiety Monitor Medical plan discussed with patient and RN Plan discussed with: Patient My Orders Orders - [facility] RN Procedure Category Date Status Time Communication Order ORDERS 07/27/25 Transmitted 15:36 Admit ADMIT 07/27/25 Transmitted 16:21 Code Status CODE 07/27/25 Transmitted 16:21 0.9% Ns 1000 Ml PHA 07/27/25 Transmitted 16:30 Ondansetron Hcl PHA 07/27/25 Transmitted (Zofran) 16:30 Complete Blood Count LAB 07/28/25 Verified 04:00 Comprehensive LAB 07/28/25 Verified Metabolic Panel 04:00 Condition: Fair ADRIANNE 07/27/25 In Process 16:21 Acetaminophen Tablet PHA 07/27/25 Transmitted (Tylenol Tablet) 16:30 Morphine Sulfate PHA 07/27/25 Transmitted Injection 16:30 Cefepime 1 Gm PHA 07/27/25 Transmitted 16:30 Vancomycin PHA 07/27/25 Transmitted 16:30 Ketorolac Injection PHA 07/27/25 Transmitted (Toradol Injection) 16:30 * Urology Consult CONS 07/27/25 Transmitted 16:21 Lactic Acid W/ Reflex LAB 07/27/25 Transmitted Order 16:21 Urine Bacterial GIANLUCA 07/27/25 Transmitted Culture 16:21 Blood Culture GIANLUCA 07/27/25 Transmitted 16:21 Kidney US 07/27/25 Transmitted 16:21 Npo Except For ADRIANNE 07/27/25 In Process Medications 16:21 Npo (Nothing By DIET 07/27/25 Transmitted Mouth) Diet Dinner Communication Order ORDERS 07/27/25 Transmitted 16:21 Nicotine 7mg/24hr PHA 07/28/25 Transmitted (Nicoderm 7mg/24hr) 10:00 Nicotine 7mg/24hr PHA 07/27/25 Transmitted (Nicoderm 7mg/24hr) 16:30 Date of Service: Jul 27, 2025 Billing Provider: DIEGO RODRIGEZ Common Visit Codes: [id number] INP/OBS CARE (HIGH) DIEGO RODRIGEZ Jul 27, 2025 16:45
[2025-07-27 16:52] LABS: Urine Protein, UAD 1+ (Negative)
[2025-07-27] MEDS: NICOTINE 7MG/24HR TOPICAL PATCH TD ONE (17:07)
--- NOTE | 2025-07-27 17:12 | DVH ---
INDICATION: Severe pyelonephritis TECHNIQUE: Multiple real-time sonographic images of the kidneys and bladder were obtained. COMPARISON: XY KUB ABDOMEN SINGLE VIEW on DOS: 02/21/25, XY PERCUTANEOUS NEPHROSTOMY on DOS: 02/20/25, PERCUTANEOUS NEPHROSTOMY on DOS: 04/19/20, PERCUTANEOUS NEPHROSTOMY on DOS: 03/19/20, KIDNEY on DOS: 10/21/19 FINDINGS: RIGHT kidney measures 12.5 cm in length. Moderate to severe chronic appearing hydronephrosis. Multiple stones are present in the right kidney measuring up to 3.8 cm. LEFT kidney measures 9.8 cm in length. No hydronephrosis. Urinary bladder is mostly contracted. 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 Multiple stones are present in the right kidney measuring up to 3.8 cm.
[2025-07-27] MEDS: KETOROLAC TROMETH 30 MG/ML 1ML VIAL IV PRN (17:35)
[2025-07-27] MEDS: ONDANSETRON HCL 4 MG/2 ML VIAL IV PRN (17:35)
[2025-07-27] MEDS: SODIUM CHLORIDE 0.9% 1,000 ML IV SCH (17:36)
[2025-07-27] MEDS: CEFEPIME 1GM/50ML 50 ML IV SCH (17:37)
[2025-07-27] MEDS: METOPROLOL TARTRATE 50 MG TAB PO SCH (17:45)
[2025-07-27] MEDS: BENAZEPRIL HCL 10 MG TAB PO ONE (17:45)
[2025-07-27] MEDS: hydrALAZINE HCL 20 MG/ML VL IV PRN (18:26)
[2025-07-27] MEDS: MORPHINE SULFATE 4 MG/ML SYR/VIAL IV PRN (18:53)
[2025-07-27 22:02] VITALS: BP 156/97; PULSE 110; RESP 18; TEMP 97.3; O2SAT 98
[2025-07-27 22:25] VITALS: BP 156/97; PULSE 97; RESP 18; TEMP 97.3; O2SAT 98
[2025-07-27] MEDS: VANCOMYCIN 1.25GM/250ML 250 ML IV ONE (22:33)
[2025-07-28] VITALS (7 sets, daily range): BP systolic 131–161; BP diastolic 87–108; PULSE 73–104; RESP 16–20; TEMP 97.6–98.4; O2SAT 99–100
[2025-07-28 06:18] LABS: Hematocrit 25.3 % (36.0-46.0); Hemoglobin 7.3 g/dL (12.2-16.2); Mean Corpuscular Hemoglobin 18.0 pg (28.0-32.0); Mean Corpuscular Volume 62.2 fL (80.0-100.0); Nucleated Red Blood Cells % 0.1 %
[2025-07-28 06:36] LABS: Alanine Aminotransferase 11 U/L (7-40); Albumin 3.9 g/dL (3.2-4.8); Alkaline Phosphatase 73 U/L (46-116); Anion Gap 7 (5-15); BUN/Creatinine Ratio 8.9 (10.0-20.0); Bilirubin, Total 0.4 mg/dL (0.2-1.0); Calcium 8.9 mg/dL (8.7-10.4); Carbon Dioxide 25 mmol/L (20-31); Chloride 106 mmol/L (98-107); Glucose 83 mg/dL (74-106); Sodium 138 mmol/L (136-145); Total Protein 7.4 g/dL (5.7-8.2)
[2025-07-28 06:39] LABS: Blood Urea Nitrogen 7 mg/dL (9-23); Potassium 3.5 mmol/L (3.5-5.1)
--- NOTE | 2025-07-28 08:27 | ECG ---
[facility] Test Date: 2025-07-27 Test Time: 13:22:08 Pat Name: GARETT BAL Department: [facility] ED Patient ID: [id number] Room: [address] [place] [address] 5 Gender: F Curtain Stitcher: [place] : 1985 Requested By: VINI ALBARRAN Order Number: [id number] Reading MD: Zackary Aguiar Measurements Intervals Crow[place] Rate: 92 P: 72 OH: 137 QRS: 60 QRSD: 80 T: 55 QT: 397 QTc: 492 Interpretive Statements Sinus rhythm Probable left atrial enlargement Probable anterior infarct, old Electronically Signed On 07-28-2025 10:33:21 PST by Zackary Aguiar Please click the below link to view image of tracing.
[2025-07-28] MEDS: BENAZEPRIL HCL 10 MG TAB PO SCH (09:32)
[2025-07-28] MEDS: NICOTINE 7MG/24HR TOPICAL PATCH TD SCH (09:34)
--- NOTE | 2025-07-28 10:30 | DVHPN2 ---
Assessment/Plan Assessment/Plan progress note 40 F with hx of stones, recurrent UTI, admitted for r flank pain, found to have staghorn, started on cefepime. 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
[2025-07-28 11:20] LABS: Total Iron Binding Capacity 364.0 ug/dL (250-425)
[2025-07-28 11:23] LABS: Iron 20.0 ug/dL (50-170)
[2025-07-28] MEDS ORDERED: VANCOMYCIN 750MG KIT 100 ML IV SCH (12:00)
[2025-07-28] MEDS: ACETAMINOPHEN 325 MG TAB PO SCH (14:00)
[2025-07-28] MEDS: KETOROLAC TROMETH 30 MG/ML 1ML VIAL IV PRN (18:31)
[2025-07-28] MEDS: MORPHINE SULFATE INJ 2 MG/ml SYRG IV PRN (23:19)
[2025-07-28] MEDS: MORPHINE SULFATE 4 MG/ML SYR/VIAL ONE (23:26)
[2025-07-29] VITALS (11 sets, daily range): BP systolic 116–176; BP diastolic 75–110; PULSE 63–86; RESP 16–20; TEMP 97.1–98.6; O2SAT 99–100
[2025-07-29 05:42] LABS: Hematocrit 23.8 % (36.0-46.0); Mean Corpuscular Hemoglobin 17.9 pg (28.0-32.0); Mean Corpuscular Volume 63.5 fL (80.0-100.0); Nucleated Red Blood Cells % 0.2 %
[2025-07-29 05:50] LABS: Hemoglobin 6.7 g/dL (12.2-16.2)
[2025-07-29 05:54] LABS: Calcium 8.9 mg/dL (8.7-10.4); Chloride 106 mmol/L (98-107); Potassium 3.7 mmol/L (3.5-5.1); Sodium 138 mmol/L (136-145)
[2025-07-29 05:55] LABS: Anion Gap 6 (5-15); Carbon Dioxide 26 mmol/L (20-31)
[2025-07-29 06:00] LABS: BUN/Creatinine Ratio 14.4 (10.0-20.0); Blood Urea Nitrogen 16 mg/dL (9-23); Glucose 104 mg/dL (74-106)
[2025-07-29] MEDS: MORPHINE SULFATE 4 MG/ML SYR/VIAL ONE (06:01)
[2025-07-29] MEDS: diphenhydrAMINE HCL 50 MG/1 ML VL IM ONE (06:45)
--- NOTE | 2025-07-29 12:27 | DVHPN2 ---
Reviewed: H&P Changes from previous H/P or p: No Changes General: Per HPI Eyes: No Pain, No Vision change, No Conjunctivae inflammation, No Eyelid inflammation, No Other, No Redness ENT: No Ear pain, No Ear discharge, No Nose pain, No Nose discharge, No Nose congestion, No Mouth pain, No Mouth swelling, No Throat pain, No Throat swelling, No Other Cardiovascular: No Chest Pain, No Palpitations, No Orthopnea, No Paroxysmal Noc. Dyspnea, No Edema, No Lt Headedness, No Other Respiratory: No Cough, No Dry, No Shortness of breath, No SOB with excertion, No Wheezing, No Hemoptysis, No Pleuritic Pain, No Sputum, No Other Gastrointestinal: Nausea, Vomiting, Abdominal Pain; No Diarrhea, No Constipation, No Melena, No Hematochezia, No Other Genitourinary: No Dysuria, No Frequency, No Incontinence, No Hematuria, No Retention; Other (Right flank pain, kidney stones) Musculoskeletal: No other, No neck pain, No shoulder pain, No arm pain, No back pain, No hand pain, No leg pain, No foot pain Skin: No Rash, No Lesions, No Jaundice, No Bruising, No Other Objective Vitals Vital Signs Date Time Temp Pulse Resp B/P (MAP) Pulse Ox O2 Delivery O2 Flow Rate FiO2 07/29/25 11:58 98.2 63 16 175/105 98.2 07/29/25 09:00 100 07/29/25 08:00 Room Air* 0 21 Intake/Output Intake and Output 07/29/25 07:00 Intake Total 850 ml Balance 850 ml Intake Oral 850 ml # Voids 6 # Bowel Movements 1 Exam GEN: Healthy appearing, well-developed, NAD. HEENT: NC/AT; MMM. CV: RRR, no m/r/g. LUNGS: CTAB, no w/r/c. ABD: Soft, NT/ND, NBS, no masses or organomegaly. EXT: skin Warm, well perfused. no rashes. No clubbing, cyanosis, or edema. NEURO: Ambulating with no limitations. No focal deficits. Medications Current Medications Medications Dose Ordered Sig/[place] Route Start Time Stop Time Status Last Admin Dose Admin Ondansetron HCl 4 mg Q4HP PRN IV 07/27/25 16:30 07/27/25 17:35 4 MG Cefepime HCl 50 ml @ 12.5 mls/hr Q8HR IV 07/27/25 16:30 07/29/25 05:51 12.5 MLS/HR Nicotine 1 patch DAILY TD 07/28/25 10:00 07/29/25 10:25 1 PATCH Metoprolol Tartrate 50 mg DAILY PO 07/27/25 16:45 07/29/25 10:13 50 MG Benazepril HCl 40 mg DAILY PO 07/28/25 10:00 07/29/25 10:12 40 MG Acetaminophen 650 mg Q8HR PO 07/28/25 14:00 07/29/25 05:48 650 MG Ketorolac Tromethamine 30 mg Q6HPRN PRN IV 07/28/25 10:30 08/02/25 10:29 Hold 07/29/25 11:31 30 MG Morphine Sulfate 2 mg Q6HPRN PRN IV 07/28/25 10:30 07/29/25 05:51 2 MG Iron Sucrose 110 ml @ 110 mls/hr DAILY@1200 IV 07/30/25 12:00 08/03/25 11:59 Hydromorphone HCl 0.5 mg Q4HPRN PRN IV 07/29/25 12:30 Laboratory Results Laboratory Tests 07/29/25 05:17 Chemistry Test 07/29/25 05:17 Calcium Level 8.9 mg/dL (8.7-10.4) Urinalysis Test 07/27/25 13:35 Urine Color Light-brown (Yellow) Urine Clarity Turbid (Clear) H Urine pH 7.0 (5.0-9.0) Urine Specific [place] 1.016 (1.001-1.035) Urine Protein 1+ (Negative) H Urine Ketones Negative (Negative) Urine Blood 2+ /uL (Negative) H Urine Nitrite Negative (Negative) Urine Bilirubin Negative (Negative) Urine Urobilinogen Normal mg/dL (Negative) Urine Leukocyte Esterase 3+ /uL (Negative) Urine RBC 6 /hpf (0 - 4) Urine Microscopic WBC 124 /HPF (0-5) H Urine Squamous Epithelial Cells Few /hpf (<5) Urine Bacteria Few /hpf (None Seen) H Urine Mucus Few (None Seen) Urine Glucose Normal mg/dL (Normal) Microbiology Microbiology Date/Time Source Procedure Growth Status 07/27/25 17:14 Blood Blood Culture - Preliminary NO GROWTH AFTER 24 HOURS OF INCUBATION. Resulted 07/27/25 13:35 Voided Urine Urine Culture - Preliminary Resulted Labs and/or images reviewed: Labs reviewed by me, Image(s) reviewed by me Assessment/Plan Assessment/Plan 40 F with hx of stones, recurrent UTI, admitted for r flank pain, found to have staghorn, started on cefepime. 07/28 start diet, pain management, follow culture, dc vanc, c/w cefepime 07/29: Patient here for staghorn calculi, chronic, chronic hydronephrosis. Patient is medication noncompliance has failed to follow up with Urology multiple times outpatient. Currently patient has recurrent UTI related to the sudden on calculi. Ongoing treatment for antibiotics with IV cefepime. Today patient is anemic getting 1 unit hemoglobin we will be after blood completion. Patient's blood pressure high likely from pain, patient has completed at IV site. We will control pain. Hypotensive the pain. Continuing home meds. If continues to be hypotensive we will need prn and escalation of blood pressure medications. Patient is on benazepril and metoprolol tartrate as per home meds. 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
[2025-07-29] MEDS: HYDROmorphone HCL 2 MG/ML VL/or syr IV PRN (12:35)
[2025-07-29] MEDS: LORazepam 2MG/ML-1ML VIAL IV PRN (17:14)
[2025-07-29] MEDS: NIFEdipine 10 MG CAP PO ONE (19:52)
[2025-07-30] VITALS (8 sets, daily range): BP systolic 122–150; BP diastolic 80–98; PULSE 64–78; RESP 17–20; TEMP 97.4–98.3; O2SAT 97–100
[2025-07-30 06:18] LABS: Hematocrit 28.9 % (36.0-46.0); Hemoglobin 8.6 g/dL (12.2-16.2); Mean Corpuscular Hemoglobin 19.8 pg (28.0-32.0); Mean Corpuscular Volume 66.8 fL (80.0-100.0); Nucleated Red Blood Cells % 0.1 %
[2025-07-30 06:26] LABS: Chloride 105 mmol/L (98-107); Potassium 3.9 mmol/L (3.5-5.1); Sodium 141 mmol/L (136-145)
[2025-07-30 06:27] LABS: Anion Gap 8 (5-15); Calcium 8.9 mg/dL (8.7-10.4); Carbon Dioxide 28 mmol/L (20-31)
[2025-07-30 06:32] LABS: BUN/Creatinine Ratio 13.1 (10.0-20.0); Blood Urea Nitrogen 11 mg/dL (9-23); Glucose 94 mg/dL (74-106)
[2025-07-30] MEDS ORDERED: NIFEdipine 10 MG CAP PO SCH ×2 (10:00)
[2025-07-30] MEDS: IRON SUCROSE COMPLEX 110 ML IV SCH (12:03)
--- NOTE | 2025-07-30 16:19 | DVHPN2 ---
Assessment/Plan Assessment/Plan progress note 40 F with hx of stones, recurrent UTI, admitted for r flank pain, found to have staghorn, started on cefepime. 07/28 start diet, pain management, follow culture, dc vanc, c/w cefepime 07/29: Patient here for staghorn calculi, chronic, chronic hydronephrosis. Patient is medication noncompliance has failed to follow up with Urology multiple times outpatient. Currently patient has recurrent UTI related to the sudden on calculi. Ongoing treatment for antibiotics with IV cefepime. Today patient is anemic getting 1 unit hemoglobin we will be after blood completion. Patient's blood pressure high likely from pain, patient has completed at IV site. We will control pain. Hypotensive the pain. Continuing home meds. If continues to be hypotensive we will need prn and escalation of blood pressure medications. Patient is on benazepril and metoprolol tartrate as per home meds. - iv Ativan 1 mg Q2 H PRN for anxiety 07/30 pain improved, received iv ion. 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
[2025-07-31 01:00] VITALS: BP 144/88; PULSE 69; RESP 17; TEMP 97.5; O2SAT 100
[2025-07-31 05:00] VITALS: BP_SYST 150; BP_SYST 161; BP_DIAS 108; BP_DIAS 92; PULSE 66; RESP 18; TEMP 97.4; O2SAT 99
[2025-07-31 06:00] VITALS: BP 148/92
[2025-07-31 06:01] LABS: Hematocrit 29.4 % (36.0-46.0); Hemoglobin 8.7 g/dL (12.2-16.2); Mean Corpuscular Hemoglobin 19.8 pg (28.0-32.0); Mean Corpuscular Volume 67.0 fL (80.0-100.0); Nucleated Red Blood Cells % 0.1 %
[2025-07-31 09:00] VITALS: BP 165/98; PULSE 70; RESP 18; TEMP 97.8; O2SAT 99
[2025-07-31] MEDS ORDERED: BENA10TA90 PO (12:04)
[2025-07-31] MEDS ORDERED: CEFD300C2 PO (12:04)
[2025-07-31] MEDS ORDERED: METO-289 PO (12:04)
[2025-07-31] MEDS ORDERED: AML5T PO (12:04)
[2025-07-31] MEDS ORDERED: FER325T PO (12:06)
--- NOTE | 2025-07-31 12:07 | DVHDS2 ---
Discharge Summary Date of Admission Jul 27, 2025 at 16:21 Date of Discharge: Jul 31, 2025 Labs/Diagnostic Data: Laboratory Results Test 07/31/25 05:20 07/30/25 05:40 07/28/25 05:42 07/27/25 17:14 White Blood Count 8.8 10^3/uL (4.4-10.8) Red Blood Count 4.39 10^6/uL (4.0-5.20) Hemoglobin 8.7 g/dL (12.2-16.2) Hematocrit 29.4 % (36.0-46.0) Mean Corpuscular Volume 67.0 fL (80.0-100.0) Mean Corpuscular Hemoglobin 19.8 pg (28.0-32.0) Mean Corpuscular Hemoglobin Concent 29.5 g/dL (32.0-36.0) Red Cell Distribution Width 25.6 % (11.8-14.3) Platelet Count 239 10^3/uL (140-450) Mean Platelet Volume 8.8 fL (6.9-10.8) Neutrophils (%) (Auto) 71.6 % (37.0-80.0) Lymphocytes (%) (Auto) 14.7 % (10.0-50.0) Monocytes (%) (Auto) 8.1 % (0.0-12.0) Eosinophils (%) (Auto) 5.0 % (0.0-7.0) Basophils (%) (Auto) 0.6 % (0.0-2.0) Neutrophils # (Auto) 6.3 10 ^3/uL (1.6-8.6) Lymphocytes # (Auto) 1.3 10 ^3/uL (0.4-5.4) Monocytes # (Auto) 0.7 10 ^3/uL (0-1.3) Eosinophils # (Auto) 0.4 10 ^3/uL (0-0.8) Basophils # (Auto) 0.1 10 ^3/uL (0-0.2) Nucleated Red Blood Cells 0.1 % Sodium Level 141 mmol/L (136-145) Potassium Level 3.9 mmol/L (3.5-5.1) Chloride Level 105 mmol/L (98-107) Carbon Dioxide Level 28 mmol/L (20-31) Anion Gap 8 (5-15) Blood Urea Nitrogen 11 mg/dL (9-23) Creatinine 0.84 mg/dL (0.550-1.02) Glomerular Filtration Rate Calc 89 mL/min (>90) BUN/Creatinine Ratio 13.1 (10.0-20.0) Serum Glucose 94 mg/dL (74-106) Calcium Level 8.9 mg/dL (8.7-10.4) Iron Level 20 ug/dL (50-170) Total Iron Binding Capacity 364 ug/dL (250-425) Percent Iron Saturation 5.5 % (15-50) Ferritin 7.4 ng/mL (10-291) Total Bilirubin 0.4 mg/dL (0.2-1.0) Aspartate Amino Transferase (AST) 22 U/L (13-40) Alanine Aminotransferase (ALT) 11 U/L (7-40) Alkaline Phosphatase 73 U/L (46-116) Total Protein 7.4 g/dL (5.7-8.2) Albumin 3.9 g/dL (3.2-4.8) Random Vancomycin Level 18.4 ug/mL (5-10) Lactic Acid Level 2.0 mmol/L (0.4-2.0) Test 07/27/25 13:35 Urine Color Light-brown (Yellow) Urine Clarity Turbid (Clear) Urine pH 7.0 (5.0-9.0) Urine Specific [place] 1.016 (1.001-1.035) Urine Protein 1+ (Negative) Urine Ketones Negative (Negative) Urine Blood 2+ /uL (Negative) Urine Nitrite Negative (Negative) Urine Bilirubin Negative (Negative) Urine Urobilinogen Normal mg/dL (Negative) Urine Leukocyte Esterase 3+ /uL (Negative) Urine RBC 6 /hpf (0 - 4) Urine Microscopic WBC 124 /HPF (0-5) Urine Squamous Epithelial Cells Few /hpf (<5) Urine Bacteria Few /hpf (None Seen) Urine Mucus Few (None Seen) Urine Glucose Normal mg/dL (Normal) Other Laboratory Tests 07/31/25 05:20 07/30/25 05:40 Brief Hx & Hospital Course: 40 F with hx of stones, recurrent UTI, admitted for r flank pain, found to have staghorn, started on cefepime. 07/28 start diet, pain management, follow culture, dc vanc, c/w cefepime 07/29: Patient here for staghorn calculi, chronic, chronic hydronephrosis. Patient is medication noncompliance has failed to follow up with Urology multiple times outpatient. Currently patient has recurrent UTI related to the sudden on calculi. Ongoing treatment for antibiotics with IV cefepime. Today patient is anemic getting 1 unit hemoglobin we will be after blood completion. Patient's blood pressure high likely from pain, patient has completed at IV site. We will control pain. Hypotensive the pain. Continuing home meds. If continues to be hypotensive we will need prn and escalation of blood pressure medications. Patient is on benazepril and metoprolol tartrate as per home meds. - iv Ativan 1 mg Q2 H PRN for anxiety 07/30 pain improved, received iv ion. if hb stable dc tomorrow stable to dc w cefdinir, iron tab. 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 Discharge Disposition: Home Discharge Instruct/Medications Diet: Consistent carbohydrate, Cardiac 2g Na,low cholest Activity: No Restrictions, As Tolerated Medications: cefdiner Scheduled Amlodipine Besylate (Norvasc Tablet), 5 MG PO DAILY Amoxicillin & Pot Clavulanate (Augmentin), 1 TAB PO BID Benazepril Hcl (Benazepril Hcl), 1 TAB PO DAILYPRN, (Reported) Benazepril Hcl (Benazepril Hcl), 10 MG PO DAILY, (Reported) Benazepril Hcl (Benazepril Hcl), 40 MG PO DAILY Cefdinir (Cefdinir), 2 CAP PO DAILY Cephalexin (Keflex Capsule), 500 MG PO TID Clindamycin Hcl (Clindamycin Hcl), 1 CAP PO TID Dicyclomine Hcl (Bentyl Capsule), 1 CAP PO Q6HPRN Ferrous Sulfate (Ferrous Sulfate), 325 MG PO EOD Metoprolol Succinate (Metoprolol Succinate Er), 1 TAB PO DAILY Ondansetron (Zofran), 1 TAB PO Q6HR Simethicone (Simethicone), 1 TAB PO Q8HR Sulfamethoxazole W/Trimethopri (Trimethoprim/Sulfamethoxa), 1 TAB PO BID Scheduled PRN Acetaminophen (Acetaminophen), 650 MG PO Q6HP PRN Clonidine Hydrochloride (Clonidine Hcl), 1 TAB PO Q12HP PRN Hydrocodone-Acetaminophen (Hydrocodone Bitartrate/AC 10-325 mg), 1 TAB PO QID PRN Miscellaneous Medications Metoprolol Tartrate (Lopressor Tablet), PO, (Reported) Discharge Statement: "Patient was advised to return to the ER or call 911 if any headaches, dizziness, shortness of breath, chest pain, abdominal pain, bleeding, fevers, or worsening of medical condition. Patient was counseled about treatment plan, medications, possible side effects, patientverbalized understanding. All questions were answered to the best of my ability. This discharge took greater then 30 minutes in planning, reviewing documentation, counseling the patient, and discussing with other team members." ASSESSMENT ASSESSMENT Assessment Date of Service: Jul 31, 2025 Billing Provider: HERIBERTO JHA MD Common Visit Codes: [id number] DISCH DAY >30min HERIBERTO JHA MD Jul 31, 2025 12:07
[2025-07-31 13:00] VITALS: BP 143/107; PULSE 80; RESP 20; TEMP 98.4; O2SAT 100
[2025-07-31 14:54] VITALS: BP 155/98; PULSE 70; RESP 18; TEMP 97.8; O2SAT 99
== END 2025-07-31 15:22 | disposition home or self-care (01) | DRG 463 ==
LOC: EDBD 13:07 → ER 13:07 → OVERFLOW 16:21 → EAST 21:28
PROVIDERS: ADMIT Student in an Organized Health Care Education/Training Program; ATTEND Student in an Organized Health Care Education/Training Program
PROC: 30233N1 Transfusion of Nonautologous Red Blood Cells into Peripheral Vein, Percutaneous Approach (ICD-10-PCS; principal; 2025-07-29)
DX: N13.6 Pyonephrosis (principal); E44.0 Moderate protein-calorie malnutrition; R62.7 Adult failure to thrive; D50.9 Iron deficiency anemia, unspecified; F41.9 Anxiety disorder, unspecified; F17.210 Nicotine dependence, cigarettes, uncomplicated; I10 Essential (primary) hypertension; J45.909 Unspecified asthma, uncomplicated; N20.0 Calculus of kidney; Z79.2 Long term (current) use of antibiotics; Z79.899 Other long term (current) drug therapy; Z98.891 History of uterine scar from previous surgery; Z83.3 Family history of diabetes mellitus; Z82.49 Family history of ischemic heart disease and other diseases of the circulatory system; Z71.6 Tobacco abuse counseling; Z91.148 Patient's other noncompliance with medication regimen for other reason; Z68.1 Body mass index [BMI] 19.9 or less, adult
CPT/HCPCS: 36415; 74176; 76775; 80048; 80053; 80202; 81001; 82728; 83540; 83550; 83605; 85025; 86850; 86900; 86901; 86920; 87040; 87086; 93005; 96361; 96374; G0378; J1756; J1885; J2405

== ENCOUNTER 2025-08-02 09:12 | Emergency (ER) | payer OTHER ==
[~2025-08-02] VITALS: Ht 162.6 cm; Wt 48.4 kg
[~2025-08-02 09:12] MED LIST changes: +AML5T PO; +CEFD300C2 PO; +METO-289 PO
--- NOTE | 2025-08-02 10:16 | ED.PDOC ---
History of Present Illness HPI Comments A 40 YEAR OLD FEMALE PRESENTS TO THE ED WITH COMPLAINT OF RIGHT ARM SWELLING. PATIENT WAS DISCHARGED FROM [facility] 2 DAYS PRIOR. PATIENT STATES SHE HAD IV IN RIGHT ARM THAT WAS REMOVED DURING DISCHARGE. PATIENT STATES SINCE SHE HAS BEEN HAVING PAIN REDNESS AND SWELLING AT IV SITE IN RIGHT FOREARM AND CAME TO THE ED TODAY FOR EVALUATION. PATIENT DENIES FEVER, CHILLS, SHORTNESS OF BREATH, CHEST PAIN, ABDOMINAL PAIN, NAUSEA, VOMITING, HEADACHE, OR OTHER COMPLAINTS. NO OTHER SYMPTOMS OR MODIFYING FACTORS AT THIS TIME. PATIENT IS ALERT, ORIENTED X 4, AND HAS STEADY GAIT. Chief Complaint: Upper Extremity Time Seen by MD: 10:06 Primary Care Provider: UNKNOWN Reviewed Notes: Nurses Notes, Medications, Allergies Allergies: Coded Allergies: NO KNOWN ALLERGIES (Unverified , 03/16/20) Home Meds Active Scripts Naproxen (Naproxen) 500 Mg Tab, 500 MG PO BID, #30 TAB Prov:ESVIN JORGE 08/02/25 Cephalexin Monohydrate (Cephalexin) 500 Mg Cap, 1 CAP PO TID, #30 CAP Prov:ESVIN JORGE 08/02/25 Ferrous Sulfate (FERROUS SULFATE) 325 Mg Tb, 1 TAB PO DAILY for 30 Days, #30 TAB 3 Refills Prov:HERIBERTO JHA MD 07/31/25 Cefdinir (Cefdinir) 300 Mg Cap, 2 CAP PO DAILY for 10 Days, #20 CAP Prov:HERIBERTO JHA MD 07/31/25 Metoprolol Succinate (Metoprolol Succinate Er) 50 Mg Tab, 1 TAB PO DAILY for 30 Days, #30 TAB 1 Refill Prov:HERIBERTO JHA MD 07/31/25 Amlodipine Besylate (NORVASC TABLET) 5 Mg Tb, 5 MG PO DAILY for 30 Days, #30 TAB Prov:HERIBERTO JHA MD 07/31/25 Benazepril Hcl (Benazepril Hcl) 10 Mg Tab, 40 MG PO DAILY for 30 Days, #120 TAB Prov:HERIBERTO JHA MD 07/31/25 Simethicone (Simethicone) 80 Mg Chw, 1 TAB PO Q8HR, #20 TAB Prov:RICHELLE WALSH 04/29/25 Dicyclomine Hcl (BENTYL CAPSULE) 10 Mg Cp, 1 CAP PO Q6HPRN, #20 CAP 0 Refills Prov:RICHELLE WALSH PAC 04/29/25 Clonidine Hydrochloride (Clonidine Hcl) 0.2 Mg Tab, 1 TAB PO Q12HP PRN, #20 TAB 0 Refills To be used if systolic pressure is above 160 or diastolic pressure is above 90. Prov:RICHELLE WALSH PAC 04/29/25 Sulfamethoxazole W/Trimethopri (Trimethoprim/Sulfamethoxa) 1 Tab Tab, 1 TAB PO BID for 3 Days, #6 TAB Prov:BAKARI YEUNG 02/21/25 Hydrocodone-Acetaminophen (Hydrocodone Bitartrate/AC 10-325 mg) 1 Tab Tab, 1 TAB PO QID PRN for 7 Days, #28 TAB 0 Refills Prov:SIRENA LEAHY MD 02/21/25 Ferrous Sulfate (Ferrous Sulfate) 325 Mg Tab, 325 MG PO EOD for 30 Days, #30 TAB 1 Refill Prov:SIRENA LEAHY MD 02/21/25 Clindamycin Hcl (Clindamycin Hcl) 300 Mg Cap, 1 CAP PO TID for 7 Days, #21 CAP Prov:VINI ALBARRAN MD 03/12/23 Cephalexin (KEFLEX CAPSULE) 250 Mg Cp, 500 MG PO TID for 7 Days, #21 BOTTLE Prov:VINI ALBARRAN MD 03/12/23 Ondansetron (Zofran) 4 Mg Tab, 1 TAB PO Q6HR, #20 TAB Prov:JONNATHAN MORALES MD 03/19/20 Acetaminophen (Acetaminophen) 325 Mg Tab, 650 MG PO Q6HP PRN for 7 Days, #56 TAB Prov:JONNATHAN MORALES MD 03/19/20 Amoxicillin & Pot Clavulanate (Augmentin) 500 Mg Tab, 1 TAB PO BID, #14 TAB Prov:JONNATHAN MORALES MD 03/19/20 Reported Medications Benazepril Hcl (Benazepril Hcl) 10 Mg Tab, 10 MG PO DAILY for 30 Days, MG 02/19/25 Benazepril Hcl (Benazepril Hcl) 40 Mg Tab, 1 TAB PO DAILYPRN 03/17/20 Metoprolol Tartrate (LOPRESSOR TABLET) 50 Mg Tb, PO 03/17/20 Information Source: Patient Mode of Arrival: Ambulatory Severity: Moderate Timing: Days Duration: Since onset, Days Prehospital treatment: None Medication Refill: For: Other (RIGHT FOREARM REDNESS AND MILD SWELLING POIST IV ) Past Medical History PAST MEDICAL HISTORY: Anxiety, Asthma, HTN, Kidney Stones, UTI'S Surgical History: [employer]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 Family History Family History: Family hx of DM, Family hx of HTN Social History Smoker: Cigarettes, Less Than 1 Pack/Day Alcohol: Denies ETOH Use Drugs: Marijuana Lives In: Home Constitutional: denies: chills, diaphoresis, fatigue, fever, malaise, sweats, w eakness, others EENTM: denies: blurred vision, double vision, ear bleeding, ear discharge, ear drainage, ear pain, ear ringing, eye pain, eye redness, hearing loss, mouth pain, mouth swelling, nasal discharge, nose bleeding, nose congestion, nose pain, photophobia, tearing, throat pain, throat swelling, voice changes, others Respiratory: denies: cough, hemoptysis, orthopnea, SOB at rest, shortness of breath, SOB with excertion, stridor, wheezing, others Cardiovascular: denies: chest pain, dizzy spells, diaphoresis, Dyspnea on exertion, edema, irregular heart beat, left arm pain, lightheadedness, palpitations, PND, syncope, others Gastrointestinal: denies: abdomen distended, abdominal pain, blood streaked bowels, constipated, diarrhea, dysphagia, difficulty swallowing, hematemesis, melena, nausea, poor appetite, poor fluid intake, rectal bleeding, rectal pain, vomiting, others Genitourinary: denies: abnormal vagina bleeding, burning, dyspareunia, dysuria, flank pain, frequency, hematuria, incontinence, pain, , vagina di scharge, urgency, others Neurological: denies: dizziness, fainting, headache, left sided numbness, left sided weakness, numbness, paresthesia, pre-existing deficit, right sided numbness, right sided weakness, seizure, speech problems, tingling, tremors, weakness, others Musculoskeletal: denies: back pain, gout, joint pain, joint swelling, muscle pain, muscle stiffness, neck pain, others Integumetry: reports: change in color ( R FOREARM), lumps (RIGHT VOLATR FOREARM ); denies: bruises, change in hair/nails, dryness, laceration, lesions, rash, wounds, others Allergic/Immunocompromised: denies: Difficulty Healing, Frequent Infections, Hives, Itching, others Hematologic/Lymphatic: denies: anemia, blood clots, easy bleeding, easy bruising, swollen glands, others Endocrine: denies: excessive hunger, excessive sweating, excessive thirst, excessive urination, flushing, intolerance to cold, intolerance to heat, unexplained weight gain, unexplained weight loss, others Psychiatric: denies: anxiety, bipolar disorder, depression, hopeless, panic disorder, schizophrenia, sleepless, suicidal, others All Other Systems: Reviewed and Negative Physical Exam General Appearance: No Apparent Distress, Normal HEENT: Normal ENT Inspection, PERRL/EOMI, Pharynx Normal, TMs Normal Neck: Full Range of Motion, Non-Tender, Normal, Normal Inspection Respiratory: Chest Non-Tender, Lungs Clear, No Accessory Muscle Use, No Respiratory Distress, Normal Breath Sounds Cardiovascular: No Edema, No JVD, No Murmur, No Gallop, Normal Peripheral Pulses, Regular Rate/Rhythm Breast Exam: Deferred Gastrointestinal: No Organomegaly, Non Tender, No Pulsatile Mass, Normal Bowel Sounds, Soft Genitalia: Deferred Pelvic: Deferred Rectal: Deferred Extremities: No calf tenderness, Normal capillary refill, Normal range of motion, No pedal edema, Tender (WITH LOCALIZED REDNESS AND MILD SWELLING ON RIGHT VOLAR FOREARM, NO OPEN WOUND SEEN, DVT ?? ) Musculoskeletal : Apperance: Normal Neurologic: Alert, plate mill hand II-XII nml as Tested, No Motor Deficits, Normal Affect, Normal Mood, No Sensory Deficits Cerebellar Function: Normal Reflexes: Normal Skin: Dry, Normal Color, Warm, Other (LOCALIZED REDNESS, SWELLING AND HARDNESS ON RIGHT VOLAR FOREARM, NO OPEN WOUND SEEN. ) Peripheral Pulses: 2+ carotid (R), 2+ carotid (L), 2+ Radial (R), 2+ Radial (L) Lymphatic: No Adenopathy Was a procedure done? Was a procedure done?: No Differential Dx Considerations may include: CELLULITIS, DVT, X-Ray, Labs, Meds, VS Vital Signs Date Time Temp Pulse Resp B/P (MAP) Pulse Ox O2 Delivery O2 Flow Rate FiO2 08/02/25 12:26 178/129 08/02/25 12:14 98.7 98 16 178/129 (145) 97 98.7 08/02/25 12:14 98 16 97 Room Air 08/02/25 09:15 98.0 109 15 198/98 100 98.0 Current Medications Medications (Trade) Dose Ordered Sig/Stanford Route Start Time Stop Time Status Last Admin Clonidine HCl (Catapres Tablet) 0.2 mg ONCE ONCE PO 08/02/25 12:15 08/02/25 12:16 DC 08/02/25 12:[address] [address] Ph: [phone] DIAGNOSTIC IMAGING Diagnostic Imaging Report : [id number] Signed PATIENT: GARETT BAL ACCT: [id number] UNIT: [id number] : 1985 LOC: ER ROOM / BED: / AGE / SEX: 40 / F ADM STATUS: REG ER SERVICE [id number] ORDERING PHYSICIAN: ESVIN JORGE PROCEDURE(s): RUDVT - Rt Upper DVT REASON: IV SITE SKIN REDNESS AND HARDNESS. ORDER NUMBER(s): [id number], ACCESSION NUMBER(s): [id number] RIGHT Upper Extremity Venous Duplex CLINICAL HISTORY: IV SITE SKIN REDNESS AND HARDNESS. COMPARISON: None TECHNIQUE: Duplex Doppler evaluation of the venous system of the RIGHT lower neck and upper extremity including color Doppler and spectral/pulsed waveform analysis was performed. FINDINGS: The internal jugular vein demonstrates appropriate compressibility and waveform variability. The subclavian vein is patent on color Doppler evaluation without intraluminal thrombus and demonstrates waveform variability. The visualized portion of the brachiocephalic vein is patent on color Doppler evaluation without intraluminal thrombus and demonstrates waveform variability. The axillary vein demonstrates appropriate compressibility and waveform variability. The brachial veins demonstrate appropriate compressibility and patency on Doppler evaluation. The basilic vein demonstrates appropriate compressibility and patency on Doppler evaluation. The cephalic vein demonstrates demonstrates thrombus with no flow or compressibility IMPRESSION: 1. There is no evidence of DVT in the right upper extremity 2. There is superficial thrombosis of the cephalic vein ATED BY: ERENDIRA ZAMORA MD DICTATED DATE/TIME: 08/02/251114 SIGNED BY: ERENDIRA ZAMORA MD SIGNED DATE/TIME: 12/31/25 1115 CC: X-Ray, Labs, Meds, VS Comment COURSE: EXTERNAL MEDICAL RECORDS REVIEWED: [NONE] INDEPENDENT HISTORIANS: [NONE] SOCIAL DETERMINANTS OF HEALTH: [NONE] LABS ORDERED: NONE REVIEWED AND INTERPRETED RESULTS: NONE IMAGING ORDERED: RIGHT UPPER ARM DVT TREATMENTS ORDERED: CLONIDINE 0.2MG PO PROCEDURES PERFORMED: NONE CRITICAL CARE TIME: NONE I HAVE DISCUSSED THE PATIENT WITH THE ATTENDING PHYSICIAN DR. ALBARRAN AND HE AGREES WITH THE PATIENT'S PLAN OF CARE AND DISPOSITION. BASED ON HISTORY OF PRESENT ILLNESS, AND PHYSICAL EXAM, PATIENT WILL BE DISCHARGED HOME. DISCUSSED PLAN FOR DISCHARGE HOME WITH RX [NAPROXEN AND KEFLEX ]. MEDICATION WARNINGS GIVEN. 13:20 CALLED PT 3 TIMES TO CHECK BLOOD PRESSURE, NO ANSWER, ELOPED. Time of 1ST Reevaluation: 11:44 Reevaluation 1ST: Unchanged Time of 2ND Reevaluation: 13:19 Reevaluation 2ND: Unchanged Patient Education/Counseling: Diagnosis, Treatment, Need For Follow Up Family Education/Counseling: Diagnosis, Treatment, Need For Follow Up Medical Screening: No EMC Exist At This Time SEPSIS Sepsis Screen Date sepsis recognized/suspect: Aug 02, 2025 Time Sepsis recognized/suspect: 916 Recent Procedure: No On Antibiotic Therapy: No Respiratory Rate >20: No Heart Rate >90: Yes Temp<36 C (96.8 F) or >38.3 C: No SBP <90 or MAP <65 mmHG: No New Acute Mental Status Change: No Is the patient on CPAP, BIPAP,: No Physician Orders Rt Upper Dvt (08/02/25 09:57) Vital Signs Date Time Temp Pulse Resp B/P (MAP) Pulse Ox O2 Delivery O2 Flow Rate FiO2 08/02/25 12:26 178/129 08/02/25 12:14 98.7 98 16 178/129 (145) 97 98.7 08/02/25 12:14 98 16 97 Room Air 08/02/25 09:15 98.0 109 15 198/98 100 98.0 Medications Medications Dose Ordered Sig/Stanford Route Start Time Stop Time Status Last Admin Dose Admin Clonidine HCl 0.2 mg ONCE ONCE PO 08/02/25 12:15 08/02/25 12:16 DC 08/02/25 12:26 Departure 1 Departure Time of Disposition: 13:22 Impression: Primary Impression: Superficial venous thrombosis of upper extremity Qualified Codes: I82.611 - Acute embolism and thrombosis of superficial veins of right upper extremity Additional Impressions: Suspected soft tissue infection HTN (hypertension) Qualified Codes: I10 - Essential (primary) hypertension Non-compliance with treatment Disposition: 07 LEFT AWOL/ELOPED Condition: Fair e-Prescriptions Naproxen (Naproxen) 500 Mg Tab 500 MG PO BID, #30 TAB Prov: ESVIN JORGE 08/02/25 Cephalexin Monohydrate (Cephalexin) 500 Mg Cap 1 CAP PO TID, #30 CAP Prov: ESVIN JORGE 08/02/25 Discharged With: Self, Relative Critical Care Note Critical Care Time?: No Stability Stability form required: No Heart Score Heart Score: Heart Score Response (Comments) Value History N/A 0 EKG N/A 0 Age N/A 0 Risk Factors N/A 0 Troponin N/A 0 Total 0 I personally scribed for ESVIN JORGE ([email or web address]) on 08/02/25 at 10:16. Electronically submitted by Son Peters [email or web address]). I personally scribed for ESVIN JORGE ([email or web address]) on 08/02/25 at 11:24. Electronically submitted by Son Peters ([email or web address]). ESVIN JORGE Aug 02, 2025 10:16
--- NOTE | 2025-08-02 11:16 | DVH ---
RIGHT Upper Extremity Venous Duplex CLINICAL HISTORY: IV SITE SKIN REDNESS AND HARDNESS. COMPARISON: None TECHNIQUE: Duplex Doppler evaluation of the venous system of the RIGHT lower neck and upper extremity including color Doppler and spectral/pulsed waveform analysis was performed. FINDINGS: The internal jugular vein demonstrates appropriate compressibility and waveform variability. The subclavian vein is patent on color Doppler evaluation without intraluminal thrombus and demonstrates waveform variability. The visualized portion of the brachiocephalic vein is patent on color Doppler evaluation without intraluminal thrombus and demonstrates waveform variability. The axillary vein demonstrates appropriate compressibility and waveform variability. The brachial veins demonstrate appropriate compressibility and patency on Doppler evaluation. The basilic vein demonstrates appropriate compressibility and patency on Doppler evaluation. The cephalic vein demonstrates demonstrates thrombus with no flow or compressibility IMPRESSION: 1. There is no evidence of DVT in the right upper extremity 2. There is superficial thrombosis of the cephalic vein
[2025-08-02] MEDS ORDERED: CEPH500C PO (11:49)
[2025-08-02] MEDS ORDERED: NAPR-746 PO (11:49)
[2025-08-02 12:14] VITALS: BP 178/129; PULSE 98; RESP 16; TEMP 98.7; O2SAT 97
== END 2025-08-02 13:17 | disposition left against medical advice (07) ==
LOC: ER 09:12
DX: I82.611 Acute embolism and thrombosis of superficial veins of right upper extremity (principal); I10 Essential (primary) hypertension; F17.210 Nicotine dependence, cigarettes, uncomplicated; J45.909 Unspecified asthma, uncomplicated; F41.9 Anxiety disorder, unspecified; Z79.899 Other long term (current) drug therapy; Z87.440 Personal history of urinary (tract) infections; Z87.442 Personal history of urinary calculi; Z91.199 Patient's noncompliance with other medical treatment and regimen due to unspecified reason; Z98.890 Other specified postprocedural states
CPT/HCPCS: 93971